=== PATIENT | female | born 1940 | race Caucasian/White ===

== ENCOUNTER → 2016-07-04 | Outpatient (REF) | payer MEDICARE, OTHER ==
[~2016-07-04] MED LIST: AMLO25TA PO; ASPI81TA85 PO; AZEL0.1S3; BACT400T; CALC12502 PO; CALCTAB PO; CIPR500T4; COUM2.5T11 PO; CRES40TA; CRES40TA PO; CYCL10TA PO; DARV100T; DEPA500T2 PO; DRIS50002 PO; ENABLEX; ENAL10TA2; ESCI10TA2 PO; FLON1SPR; FOSA5TAB; IBAN150T5 PO; INDE1CAP5 PO; LEVO-84 PO; LEVO75TA4 PO; LEXA5TAB13 PO; LOSA100T37 PO; NEUR400C; PERC5TAB6 PO; PRIL20CA; PRIN20TA3; PROP60TA; SULFA; VITATAB11 PO; WARF-23 PO; ZOFR20TA PO
[2016-07-04 14:11] LABS: INR 1.13
== END ==
LOC: M LAB REF 13:10
PROVIDERS: ATTEND Nurse Practitioner Family
DX: Z51.81 Encounter for therapeutic drug level monitoring (principal); Z79.01 Long term (current) use of anticoagulants; Z47.1 Aftercare following joint replacement surgery

== ENCOUNTER → 2016-07-18 | Outpatient (REF) | payer MEDICARE, OTHER ==
[2016-07-18 14:44] LABS: INR 1.17
== END ==
LOC: M LAB REF 14:13
PROVIDERS: ATTEND Nurse Practitioner Family
DX: Z47.1 Aftercare following joint replacement surgery (principal); Z79.01 Long term (current) use of anticoagulants

== ENCOUNTER → 2016-09-28 | Outpatient (REF) | payer MEDICARE, OTHER ==
[2016-09-28 12:07] LABS: ALBUMIN 3.6 GM/DL (3.2-5.2); ALBUMIN/GLOBULIN RATIO 1.16 (1.00-1.93); ALKALINE PHOSPHATASE 94 U/L (45-117); ALT/SGPT 20 U/L (12-78); ANION GAP 6 MEQ/L (8-16); AST/SGOT 24 U/L (15-37); BILIRUBIN,TOTAL 0.6 MG/DL (0.2-1.0); BLOOD UREA NITROGEN 12 MG/DL (7-18); CALCIUM LEVEL 8.7 MG/DL (8.8-10.2); CARBON DIOXIDE LEVEL 32 MEQ/L (21-32); CHLORIDE LEVEL 106 MEQ/L (98-107); CHOLESTEROL LEVEL 142 MG/DL (<200); CREATININE FOR GFR 0.72 MG/DL (0.55-1.02); FREE T4 1.06 NG/DL (0.76-1.46); GLOMERULAR FILTRATION RATE > 60.0 (>39); GLUCOSE, FASTING 88 MG/DL (83-110); POTASSIUM SERUM 3.9 MEQ/L (3.5-5.1); SODIUM LEVEL 144 MEQ/L (136-145); TOTAL PROTEIN 6.7 GM/DL (6.4-8.2); TRIGLYCERIDES LEVEL 182 MG/DL (<150)
[2016-09-28 12:41] LABS: MEAN CORPUSCULAR HEMOGLOBIN 28.7 pg (27.0-33.0); MEAN CORPUSCULAR HGB CONC 32.2 g/dl (32.0-36.5); MEAN CORPUSCULAR VOLUME 89.1 fl (80.0-96.0); RED CELL DISTRIBUTION WIDTH 15.5 % (11.5-14.5); WHITE BLOOD COUNT 4.9 K/mm3 (4.0-10.0)
== END ==
LOC: M SFHCPLAZ 07:52
PROVIDERS: ATTEND Nurse Practitioner Family
DX: J30.89 Other allergic rhinitis (principal); I10 Essential (primary) hypertension; E03.9 Hypothyroidism, unspecified; E78.2 Mixed hyperlipidemia; E55.9 Vitamin D deficiency, unspecified

== ENCOUNTER → 2016-12-01 | Outpatient (REF) | payer MEDICARE, OTHER | LOC: M SFHCPLAZ 10:14 | PROVIDERS: ATTEND Nurse Practitioner Family | DX: R30.0 Dysuria (principal) | CPT/HCPCS: 81002; 87086; G0463 ==

== ENCOUNTER → 2016-12-19 | Outpatient (REF) | payer MEDICARE, OTHER ==
[2016-12-19 13:18] LABS: BASO % 0.5 % (0.0-1.0); EOS # 0.2 K/mm3 (0.0-0.50); EOS % 3.3 % (0.0-3.0); LARGE UNSTAINED CELL # 0.1 K/mm3 (0.0-0.4); LARGE UNSTAINED CELL % 1.7 % (0.0-4.0); LYMPH # 1.1 K/mm3 (1.5-4.5); LYMPH % 21.7 % (24.0-44.0); MEAN CORPUSCULAR HEMOGLOBIN 29.4 pg (27.0-33.0); MEAN CORPUSCULAR HGB CONC 33.1 g/dl (32.0-36.5); MEAN CORPUSCULAR VOLUME 88.6 fl (80.0-96.0); MONO # 0.4 K/mm3 (0.0-0.8); MONO % 8.8 % (0.0-5.0); NEUTROPHILS # 3.1 K/mm3 (1.8-7.7); NEUTROPHILS % 64.1 % (36.0-66.0); PLATELET COUNT, AUTOMATED 265 k/mm3 (150-450); WHITE BLOOD COUNT 4.9 K/mm3 (4.0-10.0)
[2016-12-19 14:04] LABS: ERYTHROCYTE SEDIMENTATION RATE 13 mm/hr (0-30)
== END ==
LOC: M LABDRAW1 11:38
PROVIDERS: ATTEND Orthopaedic Surgery
DX: M25.552 Pain in left hip (principal)

== ENCOUNTER → 2017-03-13 | Outpatient (REF) | payer MEDICARE, OTHER ==
[~2017-03-13] MED LIST changes: -COUM2.5T11 PO; +COUM2.5T17 PO; -LOSA100T37 PO; +LOSA100T5 PO; +PERC5TAB12 PO; -PERC5TAB6 PO
[2017-03-13 11:56] LABS: ALBUMIN 3.4 GM/DL (3.2-5.2); ALBUMIN/GLOBULIN RATIO 0.97 (1.00-1.93); ALKALINE PHOSPHATASE 89 U/L (45-117); ALT/SGPT 31 U/L (12-78); ANION GAP 7 MEQ/L (8-16); AST/SGOT 23 U/L (15-37); BILIRUBIN,TOTAL 0.5 MG/DL (0.2-1.0); BLOOD UREA NITROGEN 12 MG/DL (7-18); CALCIUM LEVEL 9.4 MG/DL (8.8-10.2); CARBON DIOXIDE LEVEL 32 MEQ/L (21-32); CHLORIDE LEVEL 106 MEQ/L (98-107); GLOMERULAR FILTRATION RATE > 60.0 (>39); GLUCOSE, FASTING 92 MG/DL (83-110); POTASSIUM SERUM 3.8 MEQ/L (3.5-5.1); SODIUM LEVEL 145 MEQ/L (136-145); TOTAL PROTEIN 6.9 GM/DL (6.4-8.2)
== END ==
LOC: M SFHCPLAZ 07:49
PROVIDERS: ATTEND Nurse Practitioner Family
DX: E55.9 Vitamin D deficiency, unspecified (principal); I10 Essential (primary) hypertension

== ENCOUNTER → 2017-07-28 | Outpatient (CLI) | payer MEDICARE, OTHER | LOC: M WUC 09:31 | DX: K44.9 Diaphragmatic hernia without obstruction or gangrene (principal); M41.9 Scoliosis, unspecified; J20.9 Acute bronchitis, unspecified; R06.02 Shortness of breath | CPT/HCPCS: 71046 ==

== ENCOUNTER 2017-09-02 10:34 | Emergency (ER) | payer MEDICARE, BC, OTHER | END 2017-09-02 13:46 | disposition home or self-care (01) | LOC: M ED 10:34 | DX: S82.831A Other fracture of upper and lower end of right fibula, initial encounter for closed fracture (principal); W10.9XXA Fall (on) (from) unspecified stairs and steps, initial encounter; Y92.9 Unspecified place or not applicable; Y93.9 Activity, unspecified; Z86.14 Personal history of Methicillin resistant Staphylococcus aureus infection; G43.909 Migraine, unspecified, not intractable, without status migrainosus; E78.00 Pure hypercholesterolemia, unspecified; I10 Essential (primary) hypertension; G47.30 Sleep apnea, unspecified; K21.9 Gastro-esophageal reflux disease without esophagitis; K57.30 Diverticulosis of large intestine without perforation or abscess without bleeding; K31.84 Gastroparesis; Z87.440 Personal history of urinary (tract) infections; N93.9 Abnormal uterine and vaginal bleeding, unspecified; M81.0 Age-related osteoporosis without current pathological fracture; M54.9 Dorsalgia, unspecified; E03.9 Hypothyroidism, unspecified; E55.9 Vitamin D deficiency, unspecified; F41.9 Anxiety disorder, unspecified; J30.2 Other seasonal allergic rhinitis; Z79.899 Other long term (current) drug therapy; Z88.2 Allergy status to sulfonamides; Z88.8 Allergy status to other drugs, medicaments and biological substances | CPT/HCPCS: 73610 ==

== ENCOUNTER → 2017-09-26 | Outpatient (REF) | payer MEDICARE, OTHER ==
[2017-09-26 12:33] LABS: TOTAL 25(OH) VITAMIN D 19.3 NG/ML (30.0-100.0)
[2017-09-26 12:35] LABS: ALBUMIN 3.3 GM/DL (3.2-5.2); ALBUMIN/GLOBULIN RATIO 0.85 (1.00-1.93); ALKALINE PHOSPHATASE 97 U/L (45-117); ALT/SGPT 21 U/L (12-78); ANION GAP 4 MEQ/L (8-16); AST/SGOT 21 U/L (7-37); BILIRUBIN,TOTAL 0.6 MG/DL (0.2-1.0); BLOOD UREA NITROGEN 7 MG/DL (7-18); CALCIUM LEVEL 8.6 MG/DL (8.8-10.2); CARBON DIOXIDE LEVEL 30 MEQ/L (21-32); CHLORIDE LEVEL 109 MEQ/L (98-107); CHOLESTEROL LEVEL 176 MG/DL (<200); CHOLESTEROL RISK RATIO 3.911 (<5); CREATININE FOR GFR 0.77 MG/DL (0.55-1.30); FREE T4 1.16 NG/DL (0.76-1.46); GLOMERULAR FILTRATION RATE > 60.0 (>39); GLUCOSE, FASTING 96 MG/DL (70-100); HDL CHOLESTEROL 45 MG/DL (>40); LDL CHOLESTEROL 95.6 MG/DL (<100); NON-HDL-C 131 MG/DL; SODIUM LEVEL 143 MEQ/L (136-145); TOTAL PROTEIN 7.2 GM/DL (6.4-8.2); TRIGLYCERIDES LEVEL 177 MG/DL (<150)
== END ==
LOC: M SFHCPLAZ 08:48
DX: I10 Essential (primary) hypertension (principal); E03.9 Hypothyroidism, unspecified; E78.2 Mixed hyperlipidemia; E55.9 Vitamin D deficiency, unspecified
CPT/HCPCS: 84443

== ENCOUNTER → 2017-10-16 | Outpatient (REF) | payer MEDICARE, OTHER ==
[2017-10-16 13:17] LABS: APPEARANCE, URINE CLOUDY (CLEAR); BACTERIA, URINE AUTO NEGATIVE (NEGATIVE); BILIRUBIN, URINE AUTO NEGATIVE (NEGATIVE); BLOOD, URINE BLOOD NEGATIVE (NEGATIVE); CALCIUM OXALATE CRYSTALS MODERATE; COLOR, URINE AMBER (YELLOW); GLUCOSE, URINE (UA) AUTO NEGATIVE (NEGATIVE); KETONE, URINE AUTO TRACE mg/dL (NEGATIVE); LEUKOCYTE ESTERASE, URINE AUTO 3+ (NEGATIVE); MUCUS, URINE SMALL (NEGATIVE); NITRITE, URINE AUTO NEGATIVE (NEGATIVE); PROTEIN, URINE AUTO 1+ mg/dL (NEGATIVE); RBC, URINE AUTO 24 /HPF (0-3); SPECIFIC GRAVITY URINE AUTO 1.018 (1.002-1.035); SQUAMOUS EPITHELIAL CELL UR AU 5 /HPF (0-6); UROBILINOGEN, URINE AUTO 0.2 mg/dL (0.0-2.0); WBC, URINE AUTO TNTC /HPF (0-3)
== END ==
LOC: M SMT 13:00
DX: R35.0 Frequency of micturition (principal)
CPT/HCPCS: 81001

== ENCOUNTER → 2017-10-30 | Outpatient (REF) | payer MEDICARE, OTHER | LOC: M SMT 17:08 | DX: N39.0 Urinary tract infection, site not specified (principal) | CPT/HCPCS: 87186 ==

== ENCOUNTER → 2017-11-19 | Outpatient (REF) | payer MEDICARE, OTHER ==
[2017-11-19 14:32] LABS: APPEARANCE, URINE CLEAR (CLEAR); BACTERIA, URINE AUTO NEGATIVE (NEGATIVE); BILIRUBIN, URINE AUTO NEGATIVE (NEGATIVE); BLOOD, URINE BLOOD NEGATIVE (NEGATIVE); COLOR, URINE YELLOW (YELLOW); GLUCOSE, URINE (UA) AUTO NEGATIVE (NEGATIVE); KETONE, URINE AUTO NEGATIVE (NEGATIVE); LEUKOCYTE ESTERASE, URINE AUTO 2+ (NEGATIVE); MUCUS, URINE SMALL (NEGATIVE); NITRITE, URINE AUTO NEGATIVE (NEGATIVE); PROTEIN, URINE AUTO NEGATIVE (NEGATIVE); RBC, URINE AUTO 2 /HPF (0-3); SPECIFIC GRAVITY URINE AUTO 1.013 (1.002-1.035); SQUAMOUS EPITHELIAL CELL UR AU 2 /HPF (0-6); UROBILINOGEN, URINE AUTO 0.2 mg/dL (0.0-2.0); WBC, URINE AUTO 2 /HPF (0-3)
== END ==
LOC: M SMT 13:48
DX: N39.0 Urinary tract infection, site not specified (principal)
CPT/HCPCS: 81001

== ENCOUNTER → 2018-04-12 | Outpatient (REF) | payer MEDICARE, OTHER ==
[2018-04-12 11:53] LABS: BASO % 0.6 % (0.0-1.0); EOS # 0.1 10^3/uL (0.0-0.50); EOS % 0.9 % (0.0-3.0); HEMATOCRIT 40.3 % (36.0-47.0); IMMATURE GRANULOCYTE % 0.4 % (0-3.0); LYMPH # 1.2 10^3/uL (1.5-4.5); LYMPH % 22.6 % (24.0-44.0); MEAN CORPUSCULAR HEMOGLOBIN 23.8 pg (27.0-33.0); MEAN CORPUSCULAR HGB CONC 29.8 g/dl (32.0-36.5); MONO # 0.8 10^3/uL (0.0-0.8); MONO % 15.2 % (0.0-5.0); NEUTROPHILS # 3.3 10^3/uL (1.8-7.7); NEUTROPHILS % 60.3 % (36.0-66.0); PLATELET COUNT, AUTOMATED 314 10^3/uL (150-450); RED BLOOD COUNT 5.04 10^6/uL (4.00-5.40); WHITE BLOOD COUNT 5.5 10^3/uL (4.0-10.0)
[2018-04-12 13:36] LABS: ALBUMIN 3.9 GM/DL (3.2-5.2); ALBUMIN/GLOBULIN RATIO 1.18 (1.00-1.93); ALKALINE PHOSPHATASE 106 U/L (45-117); ALT/SGPT 23 U/L (12-78); ANION GAP 7 MEQ/L (8-16); AST/SGOT 20 U/L (7-37); BILIRUBIN,TOTAL 0.4 MG/DL (0.2-1.0); BLOOD UREA NITROGEN 9 MG/DL (7-18); CALCIUM LEVEL 8.9 MG/DL (8.8-10.2); CARBON DIOXIDE LEVEL 31 MEQ/L (21-32); CHLORIDE LEVEL 107 MEQ/L (98-107); CREATININE FOR GFR 0.93 MG/DL (0.55-1.30); FERRITIN 9 NG/ML (8-252); FREE T4 1.01 NG/DL (0.76-1.46); GLOMERULAR FILTRATION RATE > 60.0 (>39); GLUCOSE, FASTING 86 MG/DL (70-100); POTASSIUM SERUM 4.8 MEQ/L (3.5-5.1); SODIUM LEVEL 145 MEQ/L (136-145); TOTAL PROTEIN 7.2 GM/DL (6.4-8.2)
[2018-04-12 13:49] LABS: FOLATE 5.3 NG/ML
== END ==
LOC: M SFHCPLAZ 08:53
DX: R53.83 Other fatigue (principal); E03.9 Hypothyroidism, unspecified; E55.9 Vitamin D deficiency, unspecified
CPT/HCPCS: 82746

== ENCOUNTER → 2018-04-17 | Outpatient (CLI) | payer MEDICARE, BC | LOC: M WHC 11:18 | DX: Z12.31 Encounter for screening mammogram for malignant neoplasm of breast (principal); Z78.0 Asymptomatic menopausal state; Z92.89 Personal history of other medical treatment | CPT/HCPCS: 77067 ==

== ENCOUNTER → 2018-06-21 | Outpatient (CLI) | payer MEDICARE, BC ==
[~2018-06-21] MED LIST changes: -DRIS50002 PO; +DRIS50003 PO; +GABA-845 PO; -IBAN150T5 PO; +IBAN150T6 PO; -INDE1CAP5 PO; +INDE60CA4 PO; +METH-855 PO; +OXYB10TA PO; +PROAAER10; +PROP60CA PO; +TYLE325T5 PO; -ZOFR20TA PO; +ZOFR4TAB16 PO
--- NOTE | 2018-06-27 13:24 | DEXA ---
AP SPINE L1 - L4 1.087 -0.9 0.9 LT FEMUR TOTAL Left hip replacement. LT NECK RT FEMUR TOTAL 0.729 -2.2 -0.4 RT NECK 0.662 -2.7 -0.7 TOTAL BODY TOTAL OTHER COMMENTS: Normal bone densitometry of the spine. There is osteoporosis of the right hip. Lumbar scoliosis. The density of the spine has increased 9.5% since the initial exam on 08/14/2001. The spine density has decreased 1.1% since the most recent exam on 10/14/2015. The density of the right hip has decreased 2.9% since the initial exam on 08/14/2001. The density of the right hip has decreased 6.2% since the most recent exam on 10/14/2015. FOLLOW-UP: Recommendation for the next bone density exam: 2 years. ANUEL
== END ==
LOC: M WHC 11:18
PROVIDERS: ATTEND Internal Medicine Endocrinology, Diabetes & Metabolism
DX: M81.0 Age-related osteoporosis without current pathological fracture (principal)

== ENCOUNTER 2018-07-04 08:21 | Day surgery (SDC) | payer MEDICARE, BC, OTHER ==
[~2018-07-04] VITALS: Ht 154.9 cm; Wt 65.3 kg
[~2018-07-04 08:21] MED LIST changes: +BALANCED SALT IRRIGATION SOLUTION 500ML BAG (FOR OR EYE MACHINE) As Ordered ONE; +CEFUROXIME 1MG/0.1ML INTRACAMERAL INJ As Ordered ONE; +DUOVISC (0.50ML VISCOAT/0.55ML PROVISC) OPHTH KIT As Ordered ONE; +LIDOCAINE 0.75%/EPINEPHRINE 0.025% IN BSS 1ML SYR INTRACAMERAL (OR ONLY) As Ordered ONE; +OFLOXACIN 0.3 % (OCUFLOX) OPTH SOL 5ML OD ONE; +PHENYLEPHRINE 2.5% OPHTH SOL 2ML OD ONE; +POVIDONE-IODINE 5% OPHTH PREP SOL 30ML As Ordered ONE; +PROPARACAINE 0.5% OPHTH SOL 15ML OD ONE; +TROPICAMIDE 1% OPHTH SOLN 2ML OD ONE
[2018-07-04] MEDS ORDERED: MIDAZOLAM INJ 2 MG/2 ML VIAL (J2250) As Ordered ONE (08:24)
[2018-07-04] MEDS ORDERED: fentaNYL 100 MCG/2 ML INJECTION (J3010) As Ordered ONE (08:24)
[2018-07-04 11:20] VITALS: BP 155/84
--- NOTE | 2018-07-04 16:06 | RO ---
DATE OF PROCEDURE: 07/04/2018 PREOPERATIVE DIAGNOSIS: 1. Visually significant nuclear sclerotic cataract right eye. POSTOPERATIVE DIAGNOSIS: 1. Visually significant nuclear sclerotic cataract right eye. PROCEDURE: 1. Cataract extraction with use of phacoemulsification and placement of intraocular lens AU00T0, 28.5 D, right eye. SURGEON: Isaac Viveros DO MANAGER LEAN: None. ANESTHESIA: Local with monitored anesthesia care (MAC). COMPLICATIONS: None. POSTOPERATIVE CONDITION: Stable. INDICATIONS FOR SURGERY: 1. Blurred vision affecting patients activities of daily living. DESCRIPTION OF PROCEDURE: The patient was seen in the preoperative area and properly identified. The correct operative eye was identified and marked. The patient received topical anesthetic, antibiotics, and topical dilating drops. The patient was then transferred to the operating room. The correct side was re-identified, and a time-out was performed. The eye was prepped and draped in a sterile fashion. The eyelids were isolated with Tegaderm tape, and the lids were held open with an adjustable speculum. A 1.0 mm paracentesis incision was made. Intraocular preservative-free Shugarcaine was then injected into the anterior chamber. Viscoelastic was then injected into the anterior chamber through the paracentesis. Using a 2.4 mm sharp-tipped keratome, the anterior chamber was entered via a temporal clear cornea incision. A continuous curvilinear capsulorrhexis was created with Utrata forceps. Hydrodissection was performed with balanced salt solution (BSS) on a blunt cannula until the nucleus was able to rotate freely. The crystalline lens was phacoemulsified and aspirated. Irrigation/aspiration was used to remove the cortical material. Cohesive viscoelastic was placed into the capsular bag to deepen it. The implant was placed into the capsular bag and allowed to unfold. Placement was confirmed by visualizing the anterior capsulorrhexis. Irrigation/aspiration was used to remove the viscoelastic. The clear corneal incision was hydrated with BSS on a blunt cannula. The lens was well positioned. The incisions were then tested for leaks and found to be negative. The eye was then palpated for appropriate pressure and adjusted accordingly with BSS. The eyelid speculum was then carefully removed. A shield was placed over the eye. The patient tolerated the procedure well and was discharged to the recovery unit in a stable condition. Edited: 07/04/2018 1612 whit
== END 2018-07-04 11:20 | disposition home or self-care (01) ==
LOC: M SDC 08:21
PROVIDERS: ATTEND Ophthalmology
DX: H25.11 Age-related nuclear cataract, right eye (principal); I10 Essential (primary) hypertension; M12.9 Arthropathy, unspecified; D64.9 Anemia, unspecified; E03.9 Hypothyroidism, unspecified; E78.00 Pure hypercholesterolemia, unspecified; K31.84 Gastroparesis; D50.9 Iron deficiency anemia, unspecified; M85.80 Other specified disorders of bone density and structure, unspecified site; G43.909 Migraine, unspecified, not intractable, without status migrainosus; G62.9 Polyneuropathy, unspecified; J45.909 Unspecified asthma, uncomplicated; G47.33 Obstructive sleep apnea (adult) (pediatric); J30.89 Other allergic rhinitis; Z88.2 Allergy status to sulfonamides; Z88.8 Allergy status to other drugs, medicaments and biological substances; Z79.899 Other long term (current) drug therapy; Z79.82 Long term (current) use of aspirin; Z90.710 Acquired absence of both cervix and uterus; Z87.440 Personal history of urinary (tract) infections; Z96.642 Presence of left artificial hip joint
CPT/HCPCS: 66984; J2250; J3010; V2632

== ENCOUNTER 2018-07-11 07:42 | Day surgery (SDC) | payer MEDICARE, BC, OTHER ==
[~2018-07-11] VITALS: Ht 154.9 cm; Wt 66.0 kg
[~2018-07-11 07:42] MED LIST changes: +MIDAZOLAM INJ 2 MG/2 ML VIAL (J2250) As Ordered ONE; -OFLOXACIN 0.3 % (OCUFLOX) OPTH SOL 5ML OD ONE; +OFLOXACIN 0.3 % (OCUFLOX) OPTH SOL 5ML OS ONE; -PHENYLEPHRINE 2.5% OPHTH SOL 2ML OD ONE; +PHENYLEPHRINE 2.5% OPHTH SOL 2ML OS ONE; -PROPARACAINE 0.5% OPHTH SOL 15ML OD ONE; +PROPARACAINE 0.5% OPHTH SOL 15ML OS ONE; -TROPICAMIDE 1% OPHTH SOLN 2ML OD ONE; +TROPICAMIDE 1% OPHTH SOLN 2ML OS ONE; +fentaNYL 100 MCG/2 ML INJECTION (J3010) As Ordered ONE
[2018-07-11 10:05] VITALS: BP 160/80
[2018-07-11] MEDS ORDERED: ACETAMINOPHEN TAB 650MG DOSE (2X325MG) PO PRN (10:15)
[2018-07-11] MEDS ORDERED: ONDANSETRON 4MG/2ML VIAL (J2405) IV PRN (10:15)
--- NOTE | 2018-07-11 13:55 | RO ---
DATE OF PROCEDURE: 07/11/2018 PREOPERATIVE DIAGNOSIS: 1. Visually significant nuclear sclerotic cataract left eye. POSTOPERATIVE DIAGNOSIS: 1. Visually significant nuclear sclerotic cataract left eye. PROCEDURE: 1. Cataract extraction with use of phacoemulsification and placement of intraocular lens, AU00T0, 28.0 D, left eye. SURGEON: Isaac Viveros DO JOB TRAINING SUPERVISOR: None. ANESTHESIA: Local with monitored anesthesia care (MAC). COMPLICATIONS: None. POSTOPERATIVE CONDITION: Stable. INDICATIONS FOR SURGERY: 1. Blurred vision affecting patients activities of daily living. DESCRIPTION OF PROCEDURE: The patient was seen in the preoperative area and properly identified. The correct operative eye was identified and marked. The patient received topical anesthetic, antibiotics, and topical dilating drops. The patient was then transferred to the operating room. The correct side was re-identified, and a time-out was performed. The eye was prepped and draped in a sterile fashion. The eyelids were isolated with Tegaderm tape, and the lids were held open with an adjustable speculum. A 1.0 mm paracentesis incision was made. Intraocular preservative-free Shugarcaine was then injected into the anterior chamber. Viscoelastic was then injected into the anterior chamber through the paracentesis. Using a 2.4 mm sharp-tipped keratome, the anterior chamber was entered via a temporal clear cornea incision. A continuous curvilinear capsulorrhexis was created with Utrata forceps. Hydrodissection was performed with balanced salt solution (BSS) on a blunt cannula until the nucleus was able to rotate freely. The crystalline lens was phacoemulsified and aspirated. Irrigation/aspiration was used to remove the cortical material. Cohesive viscoelastic was placed into the capsular bag to deepen it. The implant was placed into the capsular bag and allowed to unfold. Placement was confirmed by visualizing the anterior capsulorrhexis. Irrigation/aspiration was used to remove the viscoelastic. The clear corneal incision was hydrated with BSS on a blunt cannula. The lens was well positioned. The incisions were then tested for leaks and found to be negative. The eye was then palpated for appropriate pressure and adjusted accordingly with BSS. The eyelid speculum was then carefully removed. A shield was placed over the eye. The patient tolerated the procedure well and was discharged to the recovery unit in a stable condition. ANUEL
== END 2018-07-11 10:24 | disposition home or self-care (01) ==
LOC: M SDC 07:42 → EEVIPCON 07:42 → M SDC 10:24
PROVIDERS: ATTEND Ophthalmology
DX: H25.12 Age-related nuclear cataract, left eye (principal); I10 Essential (primary) hypertension; E78.5 Hyperlipidemia, unspecified; E03.9 Hypothyroidism, unspecified; D64.9 Anemia, unspecified; G47.30 Sleep apnea, unspecified; F41.9 Anxiety disorder, unspecified; Z88.2 Allergy status to sulfonamides; Z79.899 Other long term (current) drug therapy
CPT/HCPCS: 66984; J2250; J3010; V2632

== ENCOUNTER 2018-08-12 15:41 | Outpatient (CLI) | payer MEDICARE, BC, OTHER ==
[~2018-08-12] VITALS: Ht 154.9 cm; Wt 65.3 kg
[2018-08-12 15:50] VITALS: BP 173/79
[2018-08-12] MEDS ORDERED: ZOLEDRONIC ACID 5 MG in APPROPRIATE DILUENT 1 EA IV ONE (16:15)
[2018-08-12 17:25] VITALS: BP 161/78
== END 2018-08-12 17:20 | disposition home or self-care (01) ==
LOC: M INFU 15:41
PROVIDERS: ATTEND Internal Medicine Endocrinology, Diabetes & Metabolism
DX: M81.0 Age-related osteoporosis without current pathological fracture (principal); E55.9 Vitamin D deficiency, unspecified; Z88.2 Allergy status to sulfonamides; J30.2 Other seasonal allergic rhinitis
CPT/HCPCS: 36415; 80048; 81383; 96365; J3489

== ENCOUNTER → 2018-08-12 | Outpatient (REF) | payer MEDICARE, OTHER ==
[~2018-08-12] MED LIST changes: -BALANCED SALT IRRIGATION SOLUTION 500ML BAG (FOR OR EYE MACHINE) As Ordered ONE; -CEFUROXIME 1MG/0.1ML INTRACAMERAL INJ As Ordered ONE; -DUOVISC (0.50ML VISCOAT/0.55ML PROVISC) OPHTH KIT As Ordered ONE; -LIDOCAINE 0.75%/EPINEPHRINE 0.025% IN BSS 1ML SYR INTRACAMERAL (OR ONLY) As Ordered ONE; -MIDAZOLAM INJ 2 MG/2 ML VIAL (J2250) As Ordered ONE; -OFLOXACIN 0.3 % (OCUFLOX) OPTH SOL 5ML OS ONE; -PHENYLEPHRINE 2.5% OPHTH SOL 2ML OS ONE; -POVIDONE-IODINE 5% OPHTH PREP SOL 30ML As Ordered ONE; -PROPARACAINE 0.5% OPHTH SOL 15ML OS ONE; -TROPICAMIDE 1% OPHTH SOLN 2ML OS ONE; -fentaNYL 100 MCG/2 ML INJECTION (J3010) As Ordered ONE
[2018-08-12 18:46] LABS: BLOOD UREA NITROGEN 11 MG/DL (7-18); CALCIUM LEVEL 8.4 MG/DL (8.8-10.2); CARBON DIOXIDE LEVEL 30 MEQ/L (21-32); CHLORIDE LEVEL 106 MEQ/L (98-107); CREATININE FOR GFR 0.87 MG/DL (0.55-1.30); GLOMERULAR FILTRATION RATE > 60.0 (>39); GLUCOSE, FASTING 101 MG/DL (70-100); POTASSIUM SERUM 3.6 MEQ/L (3.5-5.1); SODIUM LEVEL 143 MEQ/L (136-145)
== END ==
LOC: M LABDRAW1 11:25
PROVIDERS: ATTEND Internal Medicine Endocrinology, Diabetes & Metabolism
DX: M81.0 Age-related osteoporosis without current pathological fracture (principal); E55.9 Vitamin D deficiency, unspecified

== ENCOUNTER → 2018-09-04 | Outpatient (REF) | payer MEDICARE, OTHER ==
[2018-09-04 12:54] LABS: ALBUMIN 3.5 GM/DL (3.2-5.2); ALT/SGPT 19 U/L (12-78); BILIRUBIN,TOTAL 0.5 MG/DL (0.2-1.0); BLOOD UREA NITROGEN 9 MG/DL (7-18); CALCIUM LEVEL 8.3 MG/DL (8.8-10.2); CARBON DIOXIDE LEVEL 30 MEQ/L (21-32); CHLORIDE LEVEL 108 MEQ/L (98-107); CHOLESTEROL LEVEL 182 MG/DL (<200); CHOLESTEROL RISK RATIO 3.309 (<5); CREATININE FOR GFR 0.81 MG/DL (0.55-1.30); GLOMERULAR FILTRATION RATE > 60.0 (>39); GLUCOSE, FASTING 99 MG/DL (70-100); HDL CHOLESTEROL 55 MG/DL (>40); LDL CHOLESTEROL 102 MG/DL (<100); NON-HDL-C 127 MG/DL; POTASSIUM SERUM 4.5 MEQ/L (3.5-5.1); SODIUM LEVEL 144 MEQ/L (136-145); TOTAL PROTEIN 6.9 GM/DL (6.4-8.2); TRIGLYCERIDES LEVEL 127 MG/DL (<150)
== END ==
LOC: M SFHCPLAZ 09:53
PROVIDERS: ATTEND Nurse Practitioner Family
DX: I10 Essential (primary) hypertension (principal); E03.9 Hypothyroidism, unspecified; E78.2 Mixed hyperlipidemia

== ENCOUNTER 2018-11-22 13:51 | Emergency (ER) | payer MEDICARE, BC, OTHER ==
[~2018-11-22] VITALS: Ht 154.9 cm; Wt 66.8 kg
[2018-11-22] MEDS ORDERED: NORCO, ANEXSIA 5/325MG TABLET (HYDROcodone/ACETAMINOPHEN) PO ONE (14:45)
--- NOTE | 2018-11-22 15:05 | REP ---
LEFT HIP, AP PELVIS, THREE VIEWS: HISTORY: Pain. The patient is status post left total hip replacement. There is no acute fracture or dislocation. There is minimal narrowing of the right hip joint space with associated sclerosis. IMPRESSION: The patient is status post left total hip replacement. Electronically Signed by Tyler Jaimes MD 11/22/2018 03:22 P
[2018-11-22] MEDS ORDERED: KEFL500C17 PO (15:27)
[2018-11-22] MEDS ORDERED: NORC1TAB7 PO (15:27)
[2018-11-22] MEDS ORDERED: PRED10TA2 PO (15:27)
[2018-11-22] MEDS ORDERED: cefTRIAXone SOD 1 GM VIAL (J0696) IM ONE (15:30)
[2018-11-22] MEDS ORDERED: LIDOCAINE 1% SDV 5 ML VIAL DILUENT ONE (15:30)
[2018-11-22 16:15] VITALS: BP 110/65
== END 2018-11-22 16:17 | disposition home or self-care (01) ==
LOC: M ED 13:51
DX: M54.32 Sciatica, left side (principal); N10 Acute pyelonephritis; Z79.51 Long term (current) use of inhaled steroids; Z79.891 Long term (current) use of opiate analgesic; Z79.899 Other long term (current) drug therapy; Z96.642 Presence of left artificial hip joint
CPT/HCPCS: 73502; 80047; 81001; 87088; 87186; 96372; 99283; J0696

== ENCOUNTER 2018-12-11 10:55 | Emergency (ER) | payer MEDICARE, BC, OTHER ==
[~2018-12-11] VITALS: Ht 154.9 cm; Wt 64.6 kg
[~2018-12-11 10:55] MED LIST changes: +KEFL500C17 PO; +NORC1TAB7 PO; +PRED10TA2 PO
[2018-12-11] MEDS ORDERED: MORPHINE 2 MG/ML 1ML SYRINGE (J2270) IV ONE (11:30)
[2018-12-11] MEDS ORDERED: METOCLOPRAMIDE INJ 10MG/2ML VIAL (J2765) IV ONE (11:30)
[2018-12-11] MEDS ORDERED: NS 1,000 ML IV ONE (11:30)
[2018-12-11 11:31] LABS: BASO % 0.4 % (0.0-1.0); EOS # 0.1 10^3/uL (0.0-0.50); EOS % 1.8 % (0.0-3.0); HEMATOCRIT 42.2 % (36.0-47.0); HEMOGLOBIN 13.2 g/dl (12.0-15.5); LYMPH % 19.7 % (24.0-44.0); MEAN CORPUSCULAR HEMOGLOBIN 27.7 pg (27.0-33.0); MEAN CORPUSCULAR HGB CONC 31.3 g/dl (32.0-36.5); MEAN CORPUSCULAR VOLUME 88.7 fl (80.0-96.0); MONO # 0.7 10^3/uL (0.0-0.8); MONO % 14.6 % (0.0-5.0); NEUTROPHILS # 3.2 10^3/uL (1.8-7.7); NEUTROPHILS % 63.1 % (36.0-66.0); PLATELET COUNT, AUTOMATED 361 10^3/uL (150-450); RED BLOOD COUNT 4.76 10^6/uL (4.00-5.40); WHITE BLOOD COUNT 5.1 10^3/uL (4.0-10.0)
[2018-12-11 11:57] LABS: ALBUMIN 3.1 GM/DL (3.2-5.2); ALT/SGPT 16 U/L (12-78); BILIRUBIN,DIRECT 0.1 MG/DL (0.0-0.2); BILIRUBIN,TOTAL 0.5 MG/DL (0.2-1.0); BLOOD UREA NITROGEN 5 MG/DL (7-18); CALCIUM LEVEL 8.8 MG/DL (8.8-10.2); CARBON DIOXIDE LEVEL 29 MEQ/L (21-32); CHLORIDE LEVEL 105 MEQ/L (98-107); CREATININE FOR GFR 0.86 MG/DL (0.55-1.30); GLOMERULAR FILTRATION RATE > 60.0 (>39); GLUCOSE, FASTING 93 MG/DL (70-100); LIPASE 111 U/L (73-393); POTASSIUM SERUM 3.7 MEQ/L (3.5-5.1); SODIUM LEVEL 141 MEQ/L (136-145); TOTAL PROTEIN 7.2 GM/DL (6.4-8.2)
[2018-12-11] MEDS ORDERED: ISOVUE-370 76% 100ML VIAL (Q9967) As Ordered ONE (12:17)
[2018-12-11] MEDS ORDERED: REGL5TAB2 PO (13:07)
[2018-12-11] MEDS ORDERED: CIPR-249 PO (13:07)
[2018-12-11] MEDS ORDERED: FLAG500T PO (13:07)
--- NOTE | 2018-12-11 13:13 | REP ---
CT ABDOMEN AND PELVIS WITH IV CONTRAST: TECHNIQUE: Axial contrast enhanced images from the lung bases to the pubic symphysis using 100 mL Isovue 370 intravenous contrast material with multiplanar reformations. Visualized lung bases demonstrate scattered fibrotic change. There is a large hiatal hernia. Liver demonstrates no mass. The patient has had a prior cholecystectomy. There does not appear to be significant biliary dilatation. The spleen, adrenals, pancreas, and kidneys are unremarkable. There is no hydronephrosis. There is no abdominal aortic aneurysm. There is atherosclerotic calcification of the abdominal aorta. I see no significant adenopathy. There is no free air or free fluid. There are scattered diverticula of the colon. Multiple sigmoid diverticula are present. There is segmental thickening of the sigmoid colon with surrounding streaky inflammatory change in the pericolonic fat consistent with diverticulitis. No pelvic mass is seen. The patient has had a hysterectomy. The urinary bladder is grossly unremarkable. A metallic left hip prosthesis causes adjacent streak artifact somewhat limiting evaluation of the pelvic structures. IMPRESSION: Sigmoid diverticulitis. No free air or free fluid and no evidence of abscess at this time. Large hiatal hernia. Electronically Signed by Stephen Moreno MD 12/12/2018 04:13 P
[2018-12-11 13:24] VITALS: BP 163/75
== END 2018-12-11 13:26 | disposition home or self-care (01) ==
LOC: M ED 10:55
DX: K57.32 Diverticulitis of large intestine without perforation or abscess without bleeding (principal); K44.9 Diaphragmatic hernia without obstruction or gangrene; I10 Essential (primary) hypertension; E78.5 Hyperlipidemia, unspecified; G43.909 Migraine, unspecified, not intractable, without status migrainosus; K21.9 Gastro-esophageal reflux disease without esophagitis; K31.84 Gastroparesis; M81.0 Age-related osteoporosis without current pathological fracture; Z79.899 Other long term (current) drug therapy; J30.2 Other seasonal allergic rhinitis; Z88.2 Allergy status to sulfonamides; Z88.8 Allergy status to other drugs, medicaments and biological substances
CPT/HCPCS: 74177; 80048; 80076; 81001; 83605; 83690; 85025; 87040; 87086; 96374; 96375; 99283; G0463; J2270; J2765; Q9967

== ENCOUNTER → 2019-01-09 | Outpatient (REF) | payer MEDICARE, OTHER ==
[~2019-01-09] MED LIST changes: -CALC12502 PO; +CALC500T60 PO; +CIPR-249 PO; +FLAG500T PO; +REGL5TAB2 PO
[2019-01-09 10:58] LABS: BLOOD UREA NITROGEN 8 MG/DL (7-18); CALCIUM LEVEL 8.8 MG/DL (8.8-10.2); CARBON DIOXIDE LEVEL 32 MEQ/L (21-32); CHLORIDE LEVEL 108 MEQ/L (98-107); CREATININE FOR GFR 0.88 MG/DL (0.55-1.30); FREE T4 1.02 NG/DL (0.76-1.46); GLOMERULAR FILTRATION RATE > 60.0 (>39); GLUCOSE, FASTING 91 MG/DL (70-100); POTASSIUM SERUM 3.8 MEQ/L (3.5-5.1); SODIUM LEVEL 144 MEQ/L (136-145)
== END ==
LOC: M SFHCPLAZ 08:02
PROVIDERS: ATTEND Nurse Practitioner Family
DX: E03.9 Hypothyroidism, unspecified (principal); I10 Essential (primary) hypertension; E55.9 Vitamin D deficiency, unspecified; Z79.52 Long term (current) use of systemic steroids; Z79.899 Other long term (current) drug therapy

== ENCOUNTER → 2019-04-28 | Outpatient (CLI) | payer MEDICARE, BC, OTHER ==
[~2019-04-28] MED LIST changes: +ACET-907 PO; +AZEL1SPR3 NARES; +B-10TAB2 PO; +CULTCAP2 PO; +DITR1TAB PO; +FLON27.5 NARES; +METH1TAB PO; -OXYB10TA PO; +OXYB10TA2 PO; -PROAAER10; +PROAAER10 INH; +RECL5INJ2 IV; +RELP40TA PO
[2019-04-28 10:34] LABS: FREE T4 1.01 NG/DL (0.76-1.46); THYROID STIMULATING HORMONE 2.84 uIU/ML (0.358-3.740)
== END ==
LOC: M LAB 09:16
PROVIDERS: ATTEND Internal Medicine Gastroenterology
DX: R19.7 Diarrhea, unspecified (principal)

== ENCOUNTER → 2019-04-29 | Outpatient (REF) | payer MEDICARE, OTHER ==
[2019-04-29 15:48] LABS: CLOSTRIDIUM DIFFICILE PCR NEGATIVE (NEGATIVE)
== END ==
LOC: M LAB REF 14:52
PROVIDERS: ATTEND Internal Medicine Gastroenterology
DX: R19.7 Diarrhea, unspecified (principal)

== ENCOUNTER 2019-05-02 09:47 | Day surgery (SDC) | payer MEDICARE, BC, OTHER ==
[~2019-05-02] VITALS: Ht 154.9 cm; Wt 65.7 kg
[~2019-05-02 09:47] MED LIST changes: -AZEL1SPR3 NARES; -B-10TAB2 PO; -CULTCAP2 PO; -DITR1TAB PO; -FLON27.5 NARES; -METH1TAB PO; +NS 1,000 ML IV ONE; -RECL5INJ2 IV; -RELP40TA PO
[2019-05-02] MEDS ORDERED: AZEL1SPR3 NARES (10:55)
[2019-05-02] MEDS ORDERED: FLON27.5 NARES (10:55)
[2019-05-02] MEDS ORDERED: ZOFR4TAB16 PO (10:55)
[2019-05-02] MEDS ORDERED: METH1TAB PO (10:55)
[2019-05-02] MEDS ORDERED: CULTCAP2 PO (10:55)
[2019-05-02] MEDS ORDERED: RELP40TA PO (10:55)
[2019-05-02] MEDS ORDERED: B-10TAB2 PO (10:55)
[2019-05-02] MEDS ORDERED: DRIS50003 PO (10:55)
[2019-05-02] MEDS ORDERED: RECL5INJ2 IV (10:55)
[2019-05-02] MEDS ORDERED: DITR1TAB PO (10:55)
[2019-05-02] MEDS ORDERED: PROPOFOL 500 MG/50 ML VIAL As Ordered ONE (10:59)
[2019-05-02] MEDS ORDERED: LIDOCAINE 2% INJ 100 MG/5 ML SDV (FOR ANES.) As Ordered ONE (11:01)
--- NOTE | 2019-05-02 11:33 | ROOR ---
Patient Name: Alla Hoyt Procedure Date: 05/02/2019 11:08 AM Date of : 1940 Age: 78 Room: [id number] Gender: Female Note Status: Finalized Procedure: Upper GI endoscopy Indications: Abdominal pain, Endoscopy to assess diarrhea in patient suspected of having disease of the small-bowel Providers: William RICHARDS MD Referring MD: Estee Montgomery NP Requesting Provider: Medicines: Monitored Anesthesia Care Complications: No immediate complications. Procedure: Pre-Anesthesia Assessment: - The heart rate, respiratory rate, oxygen saturations, blood pressure, adequacy of pulmonary ventilation, and response to care were monitored throughout the procedure. The Endoscope was introduced through the mouth, and advanced to the third part of duodenum. The upper GI endoscopy was accomplished without difficulty. The patient tolerated the procedure well. Findings: The examined esophagus was normal. A large hiatal hernia was present. The entire examined stomach was normal. The examined duodenum was normal. Biopsies for histology were taken with a cold forceps for evaluation of celiac disease. Impression: - Normal esophagus. - Large hiatal hernia. - otherwise normal stomach. - Normal examined duodenum. Biopsied. Recommendation: - Continue present medications. - Observe patient's clinical course. - Telephone endoscopist for pathology results in 2 weeks. William Richards MD William RICHARDS MD 05/02/2019 11:33:15 AM Electronically signed by William RICHARDS MD Number of Addenda: 0 Note Initiated On: 05/02/2019 11:08 AM Estimated Blood Loss: Estimated blood loss: none.
[2019-05-02] MEDS ORDERED: GLYCOPYRROLATE INJ 0.2 MG/ML 2 ML VIAL As Ordered ONE (11:39)
--- NOTE | 2019-05-02 11:59 | ROOR ---
Patient Name: Alla Hoyt Procedure Date: 05/02/2019 11:09 AM Date of : 1940 Age: 78 Room: [id number] Gender: Female Note Status: Finalized Procedure: Colonoscopy Indications: Generalized abdominal pain, Clinically significant diarrhea of unexplained origin, Change in bowel habits Providers: William RICHARDS MD Referring MD: Estee Montgomery NP Requesting Provider: Medicines: Monitored Anesthesia Care Complications: No immediate complications. Procedure: Pre-Anesthesia Assessment: - The heart rate, respiratory rate, oxygen saturations, blood pressure, adequacy of pulmonary ventilation, and response to care were monitored throughout the procedure. The Colonoscope was introduced through the anus and advanced to 10 cm into the ileum. The colonoscopy was performed without difficulty. The patient tolerated the procedure well. The quality of the bowel preparation was good. Findings: The perianal and digital rectal examinations were normal. A 4 mm polyp was found in the sigmoid colon. The polyp was sessile. The polyp was removed with a cold snare. Resection and retrieval were complete. Multiple medium-mouthed diverticula were found in the sigmoid colon. Internal hemorrhoids were found during retroflexion. The hemorrhoids were small. The exam was otherwise without abnormality on direct and retroflexion views. Biopsies for histology were taken with a cold forceps from the entire colon for evaluation of microscopic colitis. Impression: - One 4 mm polyp in the sigmoid colon, removed with a cold snare. Resected and retrieved. - Diverticulosis in the sigmoid colon. - Internal hemorrhoids. - The examination was otherwise normal on direct and retroflexion views. - Biopsies were taken with a cold forceps from the entire colon for evaluation of microscopic colitis. Recommendation: - Telephone endoscopist for pathology results in 2 weeks. - Use Bentyl (dicyclomine) 10 mg PO as needed 30 min AC. - (the script was sent to your pharmacy on file) William Richards MD William RICHARDS MD 05/02/2019 11:58:43 AM Electronically signed by William RICHARDS MD Number of Addenda: 0 Note Initiated On: 05/02/2019 11:09 AM Estimated Blood Loss: Estimated blood loss: none.
[2019-05-02 12:30] VITALS: BP 157/92
== END 2019-05-02 12:46 | disposition home or self-care (01) ==
LOC: M OPP 09:47
PROVIDERS: ATTEND Internal Medicine Gastroenterology
DX: K64.8 Other hemorrhoids (principal); K57.30 Diverticulosis of large intestine without perforation or abscess without bleeding; R19.7 Diarrhea, unspecified; R10.84 Generalized abdominal pain; K44.9 Diaphragmatic hernia without obstruction or gangrene; G47.30 Sleep apnea, unspecified; I10 Essential (primary) hypertension; E03.9 Hypothyroidism, unspecified; Z79.899 Other long term (current) drug therapy; Z88.2 Allergy status to sulfonamides; Z88.8 Allergy status to other drugs, medicaments and biological substances

== ENCOUNTER 2019-06-02 11:50 | Emergency (ER) | payer MEDICARE, BC, OTHER ==
[~2019-06-02] VITALS: Ht 154.9 cm; Wt 65.5 kg
[2019-06-02 11:50] VITALS: BP 171/95
[~2019-06-02 11:50] MED LIST changes: +AZEL1SPR3 NARES; +B-10TAB2 PO; +CULTCAP2 PO; +DITR1TAB PO; +FLON27.5 NARES; +METH1TAB PO; -NS 1,000 ML IV ONE; +RECL5INJ2 IV; +RELP40TA PO
[2019-06-02] MEDS ORDERED: DOXY100C (12:06)
[2019-06-02 13:02] LABS: BASO % 0.3 % (0.0-1.0); EOS # 0.1 10^3/uL (0.0-0.5); EOS % 0.8 % (0.0-3.0); HEMATOCRIT 44.1 % (36.0-47.0); LYMPH # 1.5 10^3/uL (1.5-5.0); LYMPH % 19.3 % (24.0-44.0); MEAN CORPUSCULAR HEMOGLOBIN 28.8 pg (27.0-33.0); MEAN CORPUSCULAR HGB CONC 31.7 g/dl (32.0-36.5); MEAN CORPUSCULAR VOLUME 90.7 fl (80.0-96.0); MONO # 0.9 10^3/uL (0.0-0.8); MONO % 12.1 % (0.0-5.0); NEUTROPHILS % 66.8 % (36.0-66.0); PLATELET COUNT, AUTOMATED 276 10^3/uL (150-450); RED BLOOD COUNT 4.86 10^6/uL (4.00-5.40); WHITE BLOOD COUNT 7.5 10^3/uL (4.0-10.0)
[2019-06-02 13:25] LABS: BLOOD UREA NITROGEN 7 MG/DL (7-18); CALCIUM LEVEL 8.5 MG/DL (8.8-10.2); CARBON DIOXIDE LEVEL 29 MEQ/L (21-32); CHLORIDE LEVEL 109 MEQ/L (98-107); CK-MB VALUE MASS < 1.0 NG/ML (<3.6); CPK CREATINE PHOSPHOKINASE 34 U/L (26-192); CREATININE FOR GFR 0.88 MG/DL (0.55-1.30); GLOMERULAR FILTRATION RATE > 60.0 (>39); GLUCOSE, FASTING 102 MG/DL (70-100); MB/CK RELATIVE INDEX 2.94 (< OR =4); NT-PRO BNP 169 PG/ML (<450); POTASSIUM SERUM 4.1 MEQ/L (3.5-5.1); SODIUM LEVEL 143 MEQ/L (136-145); TROPONIN I < 0.02 NG/ML (< 0.10)
--- NOTE | 2019-06-02 14:03 | REP ---
CHEST, TWO VIEWS: There is no evidence of acute infiltrate. No pleural effusion is seen. The heart is normal in size. The mediastinal silhouette is unremarkable. The visualized osseous structures are intact. There is calcification and tortuosity of the thoracic aorta. IMPRESSION: No acute pulmonary disease. Electronically Signed by Stephen Moreno MD 06/02/2019 03:25 P
[2019-06-02] MEDS ORDERED: TESS100C PO (14:18)
--- NOTE | 2019-06-02 17:37 | ECGEPIP ---
[facility] - ED Test Date: 2019-06-02 Pat Name: CARIDAD MINAYA Department: Room: - Gender: Female Cross Tie Maker: dimas : 1940 Requested By: MADY WRIGHT Order Number: [id number] Reading MD: Josey Macias Measurements Intervals [place] Rate: 73 P: 18 MD: 159 QRS: -9 QRSD: 73 T: 29 QT: 371 QTc: 411 Interpretive Statements SINUS RHYTHM WITH OCCASIONAL ECTOPIC PREMATURE COMPLEXES INCREASED ECTOPY/RATE 06/09/16 Electronically Signed on 06-02-2019 17:36:38 EST by Josey Macias
== END 2019-06-02 14:30 | disposition home or self-care (01) ==
LOC: M ED 11:50
DX: R05 Cough (principal); H92.01 Otalgia, right ear; Z87.09 Personal history of other diseases of the respiratory system; I10 Essential (primary) hypertension; E78.5 Hyperlipidemia, unspecified; K31.84 Gastroparesis; K90.0 Celiac disease; K57.92 Diverticulitis of intestine, part unspecified, without perforation or abscess without bleeding; Z86.718 Personal history of other venous thrombosis and embolism

== ENCOUNTER 2019-06-12 12:01 | Inpatient (IN) | payer MEDICARE, BC, OTHER ==
[~2019-06-12] VITALS: Ht 154.9 cm; Wt 68.0 kg
[~2019-06-12 12:01] MED LIST changes: +DOXY100C; +TESS100C PO
[2019-06-12 13:13] LABS: BASO % 0.4 % (0.0-1.0); EOS % 0.5 % (0.0-3.0); HEMATOCRIT 44.8 % (36.0-47.0); HEMOGLOBIN 14.6 g/dl (12.0-15.5); LYMPH # 1.3 10^3/uL (1.5-5.0); LYMPH % 23.8 % (24.0-44.0); MEAN CORPUSCULAR HEMOGLOBIN 29.1 pg (27.0-33.0); MEAN CORPUSCULAR HGB CONC 32.6 g/dl (32.0-36.5); MEAN CORPUSCULAR VOLUME 89.2 fl (80.0-96.0); MONO # 0.7 10^3/uL (0.0-0.8); MONO % 12.2 % (0.0-5.0); NEUTROPHILS # 3.5 10^3/uL (1.5-8.5); NEUTROPHILS % 62.7 % (36.0-66.0); PLATELET COUNT, AUTOMATED 246 10^3/uL (150-450); RED BLOOD COUNT 5.02 10^6/uL (4.00-5.40); WHITE BLOOD COUNT 5.6 10^3/uL (4.0-10.0)
--- NOTE | 2019-06-12 13:16 | REP ---
Single view chest: 06/12/2019. Indication: Chest pain. Comparison: 10 days earlier. Findings: There is no air space consolidation. There is no pleural effusion or pneumothorax. Tortuosity of the thoracic aorta is redemonstrated. Cardiac silhouette is unremarkable. Impression: No acute cardiopulmonary process. Electronically Signed by Khoa Javed DO 06/12/2019 01:08 P
[2019-06-12 13:45] LABS: BLOOD UREA NITROGEN 8 MG/DL (7-18); CALCIUM LEVEL 9.1 MG/DL (8.8-10.2); CARBON DIOXIDE LEVEL 27 MEQ/L (21-32); CHLORIDE LEVEL 107 MEQ/L (98-107); CK-MB VALUE MASS < 1.0 NG/ML (<3.6); CPK CREATINE PHOSPHOKINASE 38 U/L (26-192); CREATININE FOR GFR 0.87 MG/DL (0.55-1.30); FREE T4 1.13 NG/DL (0.76-1.46); GLOMERULAR FILTRATION RATE > 60.0 (>39); GLUCOSE, FASTING 94 MG/DL (70-100); MAGNESIUM LEVEL 2.4 MG/DL (1.8-2.4); MB/CK RELATIVE INDEX 2.63 (< OR =4); NT-PRO BNP 124 PG/ML (<450); POTASSIUM SERUM 4.2 MEQ/L (3.5-5.1); SODIUM LEVEL 143 MEQ/L (136-145); TROPONIN I < 0.02 NG/ML (< 0.10)
[2019-06-12] MEDS ORDERED: GABA800T4 PO (14:57)
[2019-06-12] MEDS ORDERED: VITA50005 PO (14:57)
[2019-06-12 16:03] VITALS: BP 160/70
[2019-06-12] MEDS ORDERED: SUMAtriptan SUCCINATE 25 MG TAB PO PRN (18:00)
[2019-06-12] MEDS ORDERED: ONDANSETRON 4 MG TAB (S0181) PO PRN (18:00)
[2019-06-12] MEDS: AMIODARONE 200 MG TAB (PACERONE) PO SCH (18:07)
--- NOTE | 2019-06-12 18:18 | HPEPDOC ---
General Date of Admission Jun 12, 2019 at 14:43 Date of Service: Jun 12, 2019 Attending Physician: ANGELA SILVA MD Chief Complaint The patient is a 78-year-old female admitted with a reason for visit of Frequent Pvcs;Pre-Syncope. Source: Patient Exam Limitations: No limitations Timing/Duration: Getting worse Severity: Severe Associated Symptoms: Other (palpitations) History of Present Illness Ms. Hoyt is a 78 yo woman with a history of hypertension, hyperlipidemia, hypothyroidism, anxiety, who was recently treated for pneumonia in 05/2019 and reports having developed palpitations since then. She reports that her pneumonia resolved well and her breathing is back to baseline but has had frequent sensations of palpitations that are worsened with exertion to the extent of becoming light headed and near syncopal that they have become debilitating that she had to present to the ED. She otherwise denies christi syncope, chest pain, shortness of breath, leg swelling, fevers, chills, new medications, recent travel or weight loss. In the ED she arrives hypertensive to 207/105 with no pain, saturating 99% on room air, HR 85, RR 18 and T 96.7. her BP eventually downtrended to SBP 160s without any intervention. Work up was notable for WBC 5.6, Hgb 14.6, Hct 44.8, TSH 2.49, free T4 1.13, BNP 124, CXR without acute pathology, troponin <0.02, mag 2.4, K 4.2 and Cr 0.87. She was admitted to medicine for management of the symptomatic frequent PVCs and kept on telemetry. I consulted Dr. Amos, the patient's billet inspector, and in speaking with him, he thought she should get amiodarone 200mg daily and he will defer to seeing her as an outpatient at this time. Home Medications Scheduled Amlodipine Besylate (Amlodipine Besylate) 2.5 Mg Tab, 2.5 MG PO DAILY, (Reported) Azelastine HCl (Azelastine HCl) 0.1% Harvel.pump, 2 SPRAY NARES BID, (Reported) Ergocalciferol (Vitamin D2) (Vitamin D2) 50,000 Units Cap, 50,000 UNIT PO 2XW, (Reported) SUNDAY AND SUNDAY Fluticasone Furoate (Flonase Sensimist) 5.9 Ml Harvel.susp, 2 PUFF NARES QHS, (Reported) Gabapentin (Gabapentin) 800 Mg Tablet, 800 MG PO QHS, (Reported) L. Rhamnosus GG/Inulin (Culturelle Capsule) 1 Each Cap.sprink, 1 CAP PO DAILY, (Reported) Levothyroxine Sodium (Levothyroxine Sodium) 75 Mcg Tab, 75 MCG PO DAILY, (Reported) Methenamine Mandelate (Methenamine Mandelate) 1 Gm Tablet, 1 GM PO DAILY, (Reported) Oxybutynin Chloride (Ditropan Xl) 10 Mg Tab.er.24, 10 MG PO DAILY, (Reported) Propranolol HCl (Propranolol HCl ER) 60 Mg Cap, 60 MG PO QHS, (Reported) Rosuvastatin Calcium (Crestor) 40 Mg Tab, 40 MG PO QHS, (Reported) Zoledronic Acid/Mannitol-Water (Reclast 5 mg/100 ml Solution) 5 Mg/100 Ml Pggybk.btl, 5 MG IV ASDIRECTED, (Reported) ONCE A YEAR Scheduled PRN Acetaminophen (Tylenol) 325 Mg Tablet, 650 MG PO TID PRN for PAIN, (Reported) Albuterol Sulfate (Proair Hfa) 108 Mcg/Act Aer, 2 PUFF INH QID PRN for SHORTNESS OF BREATH, (Reported) Eletriptan Hydrobromide (Relpax) 40 Mg Tablet, 40 MG PO DAILY PRN for MIGRAINE, (Reported) Ondansetron HCl (Zofran) 4 Mg Tablet, 4 MG PO Q6H PRN for NAUSEA OR VOMITING, (Reported) Allergies Coded Allergies: ENVIROMENTAL (Verified Allergy, Mild, 06/02/19) Sulfa (Sulfonamide Antibiotics) (Verified Allergy, Unknown, rash, N/V, 1 08/03/18) venlafaxine (Verified Allergy, Unknown, Nausea, rash, 06/02/19) Past Medical History Medical History 1. High blood pressure. 2. High cholesterol. 3. Hypothyroidism. 4. Anxiety. 5. Multiple orthopedic spinal issues. Surgical History 1. Left total hip. 2. Hysterectomy. 3. Breast reduction. 4. Transvaginal tape. 5. Appendectomy. 6. Tonsils and adenoids. 7. Cholecystectomy. 8. Laminectomy on the right. 9. Heriberto discectomy. 10. 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 Family History Significant Family History: No pertinent family hx Social History * Smoker: former Smoker (quit in 2000) Alcohol: rarely Drugs: denies Recent Travel/Sick Contacts: Denies: Recent travel, Recent sick contacts Psychosocial History: No pertinent psych hx This patient is retired. She quit smoking in 2000. She occasionally drinks alcohol. A-FIB/CHADSVASC A-FIB History Current/History of A-Fib/PAF?: No Current PO Anticoag Therapy: No Age/Risk Factor Scoring CHADSVASC: CHADSVASC Response (Comments) Value Age Risk Factor Age >/= 75 years old 2 Gender Risk Factor Female 1 Hx of CHF No 0 Hx of HTN Yes 1 Hx of Stroke/TIA/or VTE No 0 Hx of Diabetes No 0 Hx of Vascular Disease No 0 Total 4 Treatment Treatment ordered: NONE Reason Anticoagulant not given: Not indicated/[id number] Review of Systems Constitutional: Denies: Chills, Fever, Night Sweats Eyes: Denies: Pain, Vision change ENT: Denies: Head Aches, Ear Pain, Dysphagia Skin: Denies: Rash, Lesions, Breakdown Pulmonary: Denies: Dyspnea, Cough Cardiovascular: Reports: Palpitations, Lt Headedness; Denies: Chest Pain, Orthopnea, Paroxysmal Noc. Dyspnea, Edema Gastrointestinal: Denies: Nausea, Vomiting, Abdominal Pain, Diarrhea Genitourinary: Denies: Dysuria, Frequency, Incontinence, Retention Hematologic: Denies: Bruising, Bleeding Excessively Endocrine: Denies: Polydipsia, Polyphagia, Polyuria, Heat Intolerance, Cold Intolerance, Other Endocrine Sx Musculoskeletal: Denies: Neck Pain, Back Pain, Shoulder Pain, Arm Pain, Hand Pain, Leg Pain, Foot Pain, Joint Pain, Muscle Pain, Spasms, Other Symptoms Neurological: Denies: Weakness, Numbness, Incoordination, Change in speech, Confusion, Seizures, Other Symptoms Psych: Denies: Mood Normal, Anxiety, Depression, Memory Issues, Thoughts of Self Harm, Anger, Thoughts of Harming Other, Other Psych Physical Examination General Exam: Positive: Alert, No Acute Distress Eye Exam: Positive: PERRLA, Conjunctiva & lids normal, EOMI; Negative: Sclera icteric ENT Exam: Positive: Atraumatic, Mucous membr. moist/pink, Pharynx Normal Neck Exam: Positive: Supple; Negative: JVD, thyromegaly Chest Exam: Positive: Clear to auscultation, Normal air movement Heart Exam: Positive: Regular Rhythm (Sinus rhythm with frequent ectopic beats), Normal S1, Normal S2; Negative: Murmurs, Rubs Telemetry: Positive: PVCs (numerous, very frequent) Abdomen Exam: Positive: Normal bowel sounds, Soft; Negative: Tenderness, Hepatospenomegaly Extremity Exam: Positive: Normal pulses; Negative: Clubbing, Cyanosis, Edema Skin Exam: Positive: Nl turgor and temperature; Negative: Breakdown, Lesion Neuro Exam: Positive: Normal Gait, Normal Speech, Cranial Nerves 3-12 NL, Reflexes 2+ Psych Exam: Positive: Mental status NL, Mood NL, Oriented x 3 Vital Signs Vital Signs Date Time Temp Pulse Resp B/P (MAP) Pulse Ox O2 Delivery O2 Flow Rate FiO2 06/12/19 16:03 70 18 160/70 (100) 97 Room Air 06/12/19 15:30 98.4 Laboratory Data Labs 24H Laboratory Tests 2 06/12/19 13:01: Immature Granulocyte % (Auto) 0.4, Neutrophils (%) (Auto) 62.7, Lymphocytes (%) (Auto) 23.8L, Monocytes (%) (Auto) 12.2H, Eosinophils (%) (Auto) 0.5, Basophils (%) (Auto) 0.4, Neutrophils # (Auto) 3.5, Lymphocytes # (Auto) 1.3L, Monocytes # (Auto) 0.7, Eosinophils # (Auto) 0.0, Basophils # (Auto) 0.0, Nucleated Red Blood Cells % (auto) 0.0, Anion Gap 9, Glomerular Filtration Rate > 60.0, Calcium Level 9.1, Magnesium Level 2.4, Total Creatine Kinase 38, Creatine Kinase MB < 1.0, Creatine Kinase MB Relative Index 2.63, Troponin I < 0.02, OJ-Jyh-V-Type Natriuretic Peptide 124, Thyroid Stimulating Hormone (TSH) 2.490, Free Thyroxine 1.13 CBC/BMP Laboratory Tests 06/12/19 13:01 Assessment/Plan Ms. Hoyt is a 78 yo woman with a history of hypertension, hyperlipidemia, hypothyroidism, anxiety, who was recently treated for pneumonia in 05/2019 who is now admitted with symptomatic palpitations with frequents PVCs on telemetry without electrolyte disturbances, within normal range thyroid function tests, non ischemic EKG, no evidence of heart failure and signs of active infection. Will admit her to medicine with telemetry and start amio [address] Amos's recommendation. 1. Presyncope with palpitations and frequent PVCs: -Medsurg with telemetry -chest x-ray was unrevealing -start amio [address] Amos's recommendation -will continue propanolol 60 QHS per my discussion with Dr. Amos 2. Hypertension. Blood pressure was elevated in the emergency room but improved by the time she arrived on the floor. -Continue with Norvasc 2.5 and propanolol 60 3. Hypothyroidism. -Continue home Synthroid 4. Hyperlipidemia. -Continue with Crestor 5. Migraine headaches -Sumatriptan PRN 6. Obstructive sleep apnea. -CPAP Deep vein thrombosis prophylaxis: heparin [id number] Diet: 2g salt Plan / VTE VTE Prophylaxis Ordered?: Yes ANGELA SILVA MD Jun 12, 2019 18:18
[2019-06-12 20:00] VITALS: BP 152/81
[2019-06-12] MEDS: ACETAMINOPHEN TAB 650MG DOSE (2X325MG) PO PRN (20:35)
[2019-06-12] MEDS: GABAPENTIN 400 MG CAP PO SCH (21:37)
[2019-06-12] MEDS: ROSUVASTATIN 10 MG TAB (CRESTOR) PO SCH (21:37)
[2019-06-12] MEDS: FLUTICASONE PROP 0.05% NASAL SPRAY 16 GM (FLONASE) NARES SCH (21:38)
[2019-06-12] MEDS: PROPRANOLOL 60 MG LA CAP PO SCH (21:38)
[2019-06-12] MEDS: AZELASTINE 137MCG NASAL SPY 30 ML (ASTELIN) SCH (21:38)
[2019-06-12] MEDS: HEPARIN SOD (PORCINE) 5000 UNITS/ML VIAL SC SCH (21:40)
--- NOTE | 2019-06-12 22:07 | ECGEPIP ---
[facility] - ED Test Date: 2019-06-12 Pat Name: CARIDAD MINAYA Department: Room: - Gender: Female Policy Change Clerks Supervisor: berhane : 1940 Requested By: Josey Macias Order Number: [id number] Reading MD: Josey Macias Measurements Intervals [place] Rate: 67 P: 17 DC: 162 QRS: -12 QRSD: 76 T: 35 QT: 376 QTc: 398 Interpretive Statements SINUS RHYTHM WITH FREQUENT ECTOPIC PREMATURE COMPLEXES NONSPECIFIC T-WAVE ABNORMALITY ABNORMAL RHYTHM ECG INCREASED ECTOPY 06/02/19 Electronically Signed on 06-12-2019 22:07:47 EST by Josey Macias
--- NOTE | 2019-06-12 23:59 | ECHO ---
DATE OF PROCEDURE: 06/12/2019 REFERRING PHYSICIAN: Dr. Lissett Mcdonald INDICATION: Premature ventricular contractions (PVCs), presyncope. HEIGHT: 155 cm WEIGHT: 67 kg 2D MEASUREMENTS: Aortic annulus: 2.0 cm Left atrium: 2.8 cm Aortic root: 3.0 cm Ventricular septum: 1.12 cm Posterior wall: 0.97 cm Left ventricle diastole: 3.7 cm Inferior vena cava: 1.8 cm DOPPLER MEASUREMENTS: Aortic valve velocity: 103 cm/s LVOT velocity: 70.7 cm/s No aortic regurgitation. No aortic stenosis. Mild mitral regurgitation. No mitral stenosis. Mitral E velocity: 57.7 cm/s Mitral A velocity: 85.9 cm/s Mitral deceleration time: 278 ms Trace tricuspid regurgitation. Estimated right ventricle systolic pressure: 28 mmHg assuming a pressure of 5 mmHg. Pulmonary artery systolic pressure: 12 mmHg. MITRAL ANNULAR TISSUE DOPPLER: E prime septal: 3.2 cm/s E prime lateral: 2.6 cm/s DESCRIPTION: Rhythm was sinus with frequent PVCs. Image quality was fair. No pericardial effusion. CONCLUSIONS: 1. Normal left ventricle internal dimensions and wall thickness. Normal regional LV wall motion and wall thickening. Normal LV systolic function. Left ventricular ejection fraction (LVEF) 60% by visual estimate. 2. Grade 1 LV diastolic dysfunction (impaired relaxation filling pattern). 3. Otherwise normal appearing echocardiogram Doppler findings.
[2019-06-13] VITALS (8 sets, daily range): BP systolic 115–160; BP diastolic 66–93
[2019-06-13 05:43] LABS: HEMATOCRIT 40.8 % (36.0-47.0); HEMOGLOBIN 13.3 g/dl (12.0-15.5); MEAN CORPUSCULAR HEMOGLOBIN 29.3 pg (27.0-33.0); MEAN CORPUSCULAR HGB CONC 32.6 g/dl (32.0-36.5); MEAN CORPUSCULAR VOLUME 89.9 fl (80.0-96.0); PLATELET COUNT, AUTOMATED 240 10^3/uL (150-450); RED BLOOD COUNT 4.54 10^6/uL (4.00-5.40); WHITE BLOOD COUNT 5.4 10^3/uL (4.0-10.0)
[2019-06-13 06:11] LABS: CALCIUM LEVEL 8.3 MG/DL (8.8-10.2); CREATININE FOR GFR 0.96 MG/DL (0.55-1.30); MAGNESIUM LEVEL 2.4 MG/DL (1.8-2.4); POTASSIUM SERUM 3.9 MEQ/L (3.5-5.1)
[2019-06-13] MEDS: HEPARIN SOD (PORCINE) 5000 UNITS/ML VIAL SC SCH ×3 (07:01→21:20)
[2019-06-13] MEDS: LEVOTHYROXINE 75MCG TABLET (0.075MG) PO SCH (07:05)
[2019-06-13] MEDS: AMIODARONE 200 MG TAB (PACERONE) PO SCH (09:41)
[2019-06-13] MEDS: oxyBUTYnin *DITROPAN XL* 5 MG TABCR PO SCH (09:41)
[2019-06-13] MEDS: AZELASTINE 137MCG NASAL SPY 30 ML (ASTELIN) SCH ×2 (09:42→21:16)
[2019-06-13] MEDS: ACETAMINOPHEN TAB 650MG DOSE (2X325MG) PO PRN (09:52)
[2019-06-13] MEDS ORDERED: AMIODARONE 200 MG TAB (PACERONE) PO SCH (13:00)
--- NOTE | 2019-06-13 13:40 | IPNPDOC ---
Text Note Date of Service The patient was seen on 06/13/19. NOTE Subjective: -Doing well this morning -Was started on amio 200QD per Dr. Amos's recs on conversation about her presentation --> persistent PVCs while here with exertion Called Dr. Amos who recommended increasing the amio to 200 QID with plan to reduce to 200 daily by discharge Objective: General Exam: Alert, No Acute Distress Eye Exam: PERRLA, Conjunctiva & lids normal, EOMI, anicteric ENT Exam: Atraumatic, MMM Neck: no JVD or thyromegaly, supple Chest Exam: Clear to auscultation, Normal air movement, no crackles or wheezing Heart Exam: Sinus rhythm with now infrequent ectopic beats, Normal S1, Normal S2, no murmurs, rubs Abdomen Exam: Normal bowel sounds, Soft, NTND Extremity Exam: WWP, 2+ DP pulses, no LE edema Skin Exam: WNL turgor and temperature, with no rashes or breakdown Neuro Exam: Normal Speech, cranial Nerves 2-12 WNL, moving all extremities Psych Exam: Mental status NL, Oriented x 3 Labs: Reviewed WBC 5.4 Hgb 13.3 Hct 40.8 Platelets 240 Na 141 K 3.9 Mag 2.4 Cr 0.96 Assessment/Plan Ms. Hoyt is a 78 yo woman with a history of hypertension, hyperlipidemia, hypothyroidism, anxiety, who was recently treated for pneumonia in 05/2019 who is now admitted with symptomatic palpitations with frequents PVCs on telemetry without electrolyte disturbances, within normal range thyroid function tests, non ischemic EKG, no evidence of heart failure and signs of active infection, now started on amio [address] Amos's recommendation. 1. Presyncope with palpitations and frequent PVCs: -Telemetry -chest x-ray was unrevealing, no other evidence of infection -increase amio 200 QD to QID per Dr. Amos's recommendation, who will see the patient today for official consultation -will continue propanolol 60 QHS per my discussion with Dr. Amos -Will have her walk with PT today and do orthostatic vitals as well 2. Hypertension. Blood pressure was elevated in the emergency room but improved by the time she arrived on the floor. -Continue with Norvasc 2.5 and propanolol 60 3. Hypothyroidism. -Continue home Synthroid 4. Hyperlipidemia. -Continue with Crestor 5. Migraine headaches -Sumatriptan PRN 6. Obstructive sleep apnea. -CPAP Deep vein thrombosis prophylaxis: heparin [id number] Diet: 2g salt VS,Fishbone, I+O VS, Fishbone, I+O Laboratory Tests 06/12/19 13:01 06/13/19 05:34 Vital Signs Date Time Temp Pulse Resp B/P (MAP) Pulse Ox O2 Delivery O2 Flow Rate FiO2 06/13/19 08:00 97.7 50 18 132/66 (88) 97 Room Air I&O- Last 24 Hours up to 6 AM 06/13/19 06:00 Intake Total 600 ml Balance 600 ml ANGELA SILVA MD Jun 13, 2019 08:53
--- NOTE | 2019-06-13 17:05 | CR ---
DATE OF CONSULTATION: 06/13/2019 REFERRING PHYSICIAN: Dr. Lissett Mcdonald REASON FOR CONSULTATION: Premature ventricular contractions (PVCs). HISTORY OF THE PRESENT ILLNESS: Alla Hoyt is a 78-year-old woman with a longstanding history of palpitations for many years. She had pneumonia May 2019 and from then on has been having frequent palpitations that occur typically several times an hour. She describes them as brief "flutters, thumping" lasting for a few seconds at a time, which rarely make her dizzy/lightheaded. She has systemic hypertension, hyperlipidemia, hypothyroidism, and anxiety. Alcohol consumption is described as rare. She had an echocardiogram Doppler performed on this admission, 06/12/2019, which has been reported under separate cover. She had normal left ventricular (LV) internal dimensions and wall thickness with normal regional wall motion and normal LV systolic function (LVEF 60% by visual estimate). Grade 1 LV diastolic dysfunction. Otherwise normal appearing echocardiogram Doppler findings. She is not bothered by any chest pain, pressure, or tightness, wheezing or heaviness with or without activity. No exertional dyspnea. No leg or ankle edema. She reports she had an episode of passing out 2 years ago. No prior embolic events. No intermittent claudication. OTHER PAST MEDICAL AND SURGICAL HISTORY: Systemic hypertension, obesity, hypercholesterolemia, hypothyroidism, anxiety, multiple orthopedic spinal issues. Status post left total hip replacement. Status post hysterectomy. Status post breast reduction surgery. Status post transvaginal tape. Status post appendectomy. Status post tonsillectomy and adenoidectomy. Status post cholecystectomy. Status post laminectomy on the right. Status post zeus discectomy. 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 Migraine headaches. ADVERSE DRUG REACTIONS: SULFONAMIDE ANTIBIOTICS (rash). VENLAFAXINE (nausea and rash). MEDICATIONS PRIOR TO ADMISSION: - Tylenol 325 mg times two three times a day as needed for pain - ProAir HFA two puffs four times a day as needed - amlodipine 2.5 mg daily - azelastine two sprays both nares twice a day - Relpax 40 mg daily as needed for migraines - vitamin D2 5000 units twice a week (Mondays and ) - fluticasone two puffs both nares nightly - gabapentin 800 mg nightly - L. Rhamnosus one cap daily - levothyroxine 75 mcg daily - methenamine 1 gram daily - Zofran 4 mg every 6 hours as needed for nausea or vomiting - Ditropan XL 10 mg daily - propranolol 60 mg nightly - rosuvastatin 40 mg nightly - Reclast 5 mg IV once a year or as directed (medication held) FAMILY HISTORY: Noncontributory at the patient's current age. SOCIAL HISTORY: Prior smoker (quit 2000). Rare intake of alcohol. No illicit drugs. No recent travel or sick contacts. Retired. Prior smoker for which she quit in 2000. REVIEW OF SYSTEMS: As per history of the present illness above. No anxiety, panic attacks, or depression. She has migraine headaches. All other 10-point review of systems negative. Recent pneumonia in May 2019. PHYSICAL EXAMINATION: Pleasant overweight woman who appears her chronologic age, who is not in any respiratory or psychologic distress. Height 61 inches. Weight 67 kg. Pulse 63, temperature 97.3, respiratory rate 21, blood pressure 120/70, oxygen saturation 100% on room air. No conjunctival pallor, scleral icterus or xanthomas. Oral mucosa was moist and without pallor or cyanosis. Jugular venous pulsations were at 3 cm. Trachea midline. No palpable thyroid. No clubbing, nail bed cyanosis, or splinter hemorrhages. No skin lesions, skin pallor, or icterus. Oriented to person, place and time. Mood and affect normal. Curvature of the spine normal. Gait normal. Gross motor strength and tone normal. No abnormal muscle atrophy, fasciculations, or tremors. Respiratory expansion effort was good. No crackles or wheezes. No palpable apex beat. No left parasternal lifts, heaves, thrills, or palpable heart sounds. First and second heart sounds normal. No S3 or S4 or murmurs. Carotids were normal in volume and contour and no carotid bruits. No palpable abdominal aorta but difficult to palpate due to abdominal obesity. Pedal pulses normal. No peripheral edema. Abdomen was obese, soft, nontender with normal bowel sounds. No hepatosplenomegaly or other organomegaly. Liver span difficult to assess due to abdominal obesity. Stool for occult blood not presently indicated. INVESTIGATIONS: Echocardiogram Doppler report as summarized above. Portable chest x-ray 06/12/2019 reported no acute cardiopulmonary process. No air space consolidation. No pleural effusion or pneumothorax. Tortuosity of the thoracic aorta. Cardiac silhouette was said to be unremarkable. ECG 06/12/2019 at 12:26 p.m. shows sinus rhythm with frequent uniform isolated PVCs, nonspecific T-wave abnormalities. Laboratory work 06/13/2019 was reviewed: WBC 5.4, hemoglobin 13.3, hematocrit 40.8, platelets 240. Sodium 141, potassium 3.9, chloride 108, CO2 29, creatinine 0.96, estimated GFR 60, calcium 8.3, magnesium 2.4. Laboratory work 06/12/2019 showed NT pro-BNP 124, TSH 2.490, free T4 1.13, troponin I less than 0.02, CPK 38, CPK-MB less than 1.0. ASSESSMENT AND RECOMMENDATIONS: 1. Frequent uniform PVCs for which the patient is symptomatic with frequent palpitations. Her echocardiogram Doppler shows normal LV systolic function. She is not known to have any ischemic heart disease. No pathologic Q waves or ischemic repolarization abnormalities are seen on ECG. I think because the patient is so highly symptomatic that antiarrhythmic drug therapy is justified. I explained to the patient that I have changed my mind with regards to using amiodarone, and I would rather start with something milder. Specifically, I have replaced the amiodarone with flecainide beginning at 50 mg every 12 hours. I explained to the patient that there is some risk of side effects with flecainide, including the possibility of making ventricular cardiac rhythm disturbances worse, including the possibility of ventricular tachycardia. She will be on telemetry while flecainide is initiated for safety. My plan is to see her back as an outpatient, and at that time order a followup 24-hour Holter monitor to see her PVC burden on flecainide. This plan was explained to the referring physician. Her potassium and magnesium levels were normal. She should absolutely stay away from all alcohol. If she has a high PVC burden and remains symptomatic with frequent PVCs despite flecainide, then another option, if her PVCs are predominantly uniform, will be PVC radiofrequency ablation. 2. Systemic hypertension. Blood pressure presently controlled. Continue propranolol and amlodipine at the current doses. Propranolol has the additional compelling indication in migraine prophylaxis, which she finds helpful. 3. Hyperlipidemia. No recent lipid values have been available for my review. She is maintained on Crestor. I recommend for now that the patient be on a Dietary Approaches to Stop Hypertension (DASH) diet. 4. Overweight. Body mass index (BMI) 27.9. While in the hospital, I recommend that she be on a DASH diet. manager terminal, I recommend that the patient be on a whole food, low fat, low sodium, plant-based diet. Thank you kindly for asking me to participate in the cardiac care of Mrs. Alla Hooksthomas.
[2019-06-13] MEDS: FLUTICASONE PROP 0.05% NASAL SPRAY 16 GM (FLONASE) NARES SCH (21:16)
[2019-06-13] MEDS: GABAPENTIN 400 MG CAP PO SCH (21:19)
[2019-06-13] MEDS: ROSUVASTATIN 10 MG TAB (CRESTOR) PO SCH (21:19)
[2019-06-13] MEDS: FLECAINIDE 50MG TABLET PO SCH (21:20)
[2019-06-13] MEDS: PROPRANOLOL 60 MG LA CAP PO SCH (22:17)
[2019-06-14 04:00] VITALS: BP 138/72
[2019-06-14] MEDS: ACETAMINOPHEN TAB 650MG DOSE (2X325MG) PO PRN (04:33)
[2019-06-14] MEDS: HEPARIN SOD (PORCINE) 5000 UNITS/ML VIAL SC SCH ×3 (06:10→22:28)
[2019-06-14] MEDS: LEVOTHYROXINE 75MCG TABLET (0.075MG) PO SCH (06:10)
[2019-06-14 06:13] LABS: HEMATOCRIT 41.3 % (36.0-47.0); HEMOGLOBIN 12.7 g/dl (12.0-15.5); MEAN CORPUSCULAR HEMOGLOBIN 28.2 pg (27.0-33.0); MEAN CORPUSCULAR HGB CONC 30.8 g/dl (32.0-36.5); MEAN CORPUSCULAR VOLUME 91.8 fl (80.0-96.0); PLATELET COUNT, AUTOMATED 233 10^3/uL (150-450); WHITE BLOOD COUNT 5.6 10^3/uL (4.0-10.0)
[2019-06-14 06:30] LABS: CALCIUM LEVEL 8.4 MG/DL (8.8-10.2); CREATININE FOR GFR 1.08 MG/DL (0.55-1.30); GLOMERULAR FILTRATION RATE 52.4 (>39); MAGNESIUM LEVEL 2.3 MG/DL (1.8-2.4); POTASSIUM SERUM 3.6 MEQ/L (3.5-5.1)
[2019-06-14 08:00] VITALS: BP 117/76
[2019-06-14] MEDS: AZELASTINE 137MCG NASAL SPY 30 ML (ASTELIN) SCH ×2 (08:23→20:34)
[2019-06-14] MEDS: oxyBUTYnin *DITROPAN XL* 5 MG TABCR PO SCH (08:44)
[2019-06-14] MEDS ORDERED: POTASSIUM CHLORIDE 10 MEQ SR TABLET PO ONE (09:00)
[2019-06-14] MEDS: FLECAINIDE 50MG TABLET PO SCH ×3 (09:00→20:34)
[2019-06-14 12:00] VITALS: BP 133/66
--- NOTE | 2019-06-14 14:35 | IPNPDOC ---
Text Note Date of Service The patient was seen on 06/14/19. NOTE Subjective: -Asymptomatic bradycardia overnight with improvement of PVCs -No complaints this morning Interval events: -Was seen by Dr. Amos. Initially had spoken with him and he suggested increasing amio to 200QID from 200QD after she had persistent frequent PVCs with tachycardia with exertion. Then he saw her and decided to switch over to flecainide and continue her propanolol 60 QHS. So she was started on flecainide yesterday evening and overnight was noted to be in sinus miguel with persistent frequent PVCs, and was otherwise asymptomatic -She is bradycardic this morning as well and am holding her AM novarsc as she is normotensive and miguel, and will delay the flecainide to cardiology recs of the day. Objective: General Exam: Alert, No Acute Distress Eye Exam: PERRLA, Conjunctiva & lids normal, EOMI, anicteric ENT Exam: Atraumatic, MMM Neck: no JVD or thyromegaly, supple Chest Exam: Clear to auscultation, Normal air movement, no crackles or wheezing Heart Exam: Sinus rhythm with bradycardia and some ectopic beats, Normal S1, Normal S2, no murmurs, rubs Abdomen Exam: Normal bowel sounds, Soft, NTND Extremity Exam: WWP, 2+ DP pulses, no LE edema Skin Exam: WNL turgor and temperature, with no rashes or breakdown Neuro Exam: Normal Speech, cranial Nerves 2-12 WNL, moving all extremities Psych Exam: Mental status NL, Oriented x 3 Labs: Reviewed WBC 5.6 Hgb 12.7 Hct 41.3 Platelets 233 Na 144 K 3.6 Mag 2.3 Cr 1.08 Assessment/Plan Ms. Hoyt is a 78 yo woman with a history of hypertension, hyperlipidemia, hypothyroidism, anxiety, who was recently treated for pneumonia in 05/2019 who is now admitted with symptomatic palpitations with frequents PVCs on telemetry without electrolyte disturbances, within normal range thyroid function tests, non ischemic EKG, no evidence of heart failure and signs of active infection, now switched to flecainide with persisting PVCs and c/b new asymptomatic bradycardia. 1. Presyncope with palpitations and frequent PVCs: -Telemetry -chest x-ray was unrevealing, no other evidence of infection -switched to flecainide by Dr. Amos's recommendation -will reduce propanolol 60 to 40 QHS per 's recommendation given her recent bradycardia 2. Hypertension. Blood pressure was elevated in the emergency room but improved by the time she arrived on the floor. -Hold Norvasc 2.5 and propanolol 60 with soft BPs -switched to DASH diet 3. Hypothyroidism. -Continue home Synthroid 4. Hyperlipidemia. -Continue with Crestor 5. Migraine headaches -Sumatriptan PRN -Propanolol 40 QHS 6. Obstructive sleep apnea. -CPAP Deep vein thrombosis prophylaxis: heparin [id number] Diet: dash diet VS,Fishbone, I+O VS, Fishbone, I+O Laboratory Tests 06/14/19 05:38 Vital Signs Date Time Temp Pulse Resp B/P (MAP) Pulse Ox O2 Delivery O2 Flow Rate FiO2 06/14/19 08:00 97.7 47 18 117/76 (90) 98 Room Air I&O- Last 24 Hours up to 6 AM 06/14/19 06:00 Intake Total 240 ml Output Total 0 ml Balance 240 ml ANGELA SILVA MD Jun 14, 2019 08:52
[2019-06-14 16:00] VITALS: BP 145/77
[2019-06-14 20:00] VITALS: BP 136/77
[2019-06-14] MEDS: FLUTICASONE PROP 0.05% NASAL SPRAY 16 GM (FLONASE) NARES SCH (20:34)
[2019-06-14] MEDS: ROSUVASTATIN 10 MG TAB (CRESTOR) PO SCH (20:34)
[2019-06-14] MEDS: GABAPENTIN 400 MG CAP PO SCH (20:34)
[2019-06-14] MEDS: PROPRANOLOL 20 MG TAB PO SCH (20:35)
--- NOTE | 2019-06-14 21:44 | ECGEPIP ---
[facility] Test Date: 2019-06-14 Pat Name: CARIDAD MINAYA Department: Room: [place] [address] Gender: Female [employer]: MARKEL : 1940 Requested By: ANGELA Gonzalez Order Number: [id number] Reading MD: Monserrat Oh Measurements Intervals [place] Rate: 54 P: 17 NE: 194 QRS: -3 QRSD: 79 T: 90 QT: 410 QTc: 390 Interpretive Statements SINUS BRADYCARDIA WITH OCCASIONAL VENTRICULAR PREMATURE COMPLEXES NONSPECIFIC T-WAVE ABNORMALITY SIMILAR TO 06/12/2019 Electronically Signed on 06-14-2019 21:44:15 EST by Monserrat Oh
[2019-06-14 23:59] VITALS: BP 118/58
[2019-06-15 04:00] VITALS: BP 140/81
[2019-06-15 06:06] LABS: HEMOGLOBIN 13.6 g/dl (12.0-15.5); MEAN CORPUSCULAR HEMOGLOBIN 29.2 pg (27.0-33.0); MEAN CORPUSCULAR HGB CONC 31.6 g/dl (32.0-36.5); MEAN CORPUSCULAR VOLUME 92.3 fl (80.0-96.0); PLATELET COUNT, AUTOMATED 271 10^3/uL (150-450); RED BLOOD COUNT 4.66 10^6/uL (4.00-5.40); WHITE BLOOD COUNT 6.5 10^3/uL (4.0-10.0)
[2019-06-15 06:32] LABS: CALCIUM LEVEL 9.7 MG/DL (8.8-10.2); CREATININE FOR GFR 1.07 MG/DL (0.55-1.30); GLOMERULAR FILTRATION RATE 52.9 (>39); MAGNESIUM LEVEL 2.2 MG/DL (1.8-2.4); POTASSIUM SERUM 4.5 MEQ/L (3.5-5.1)
[2019-06-15] MEDS: LEVOTHYROXINE 75MCG TABLET (0.075MG) PO SCH (06:42)
[2019-06-15] MEDS: HEPARIN SOD (PORCINE) 5000 UNITS/ML VIAL SC SCH ×3 (06:42→21:02)
[2019-06-15] MEDS: ACETAMINOPHEN TAB 650MG DOSE (2X325MG) PO PRN (06:44)
[2019-06-15 08:00] VITALS: BP 146/75
[2019-06-15] MEDS: FLECAINIDE 50MG TABLET PO SCH ×2 (08:56→21:04)
[2019-06-15] MEDS: PROPRANOLOL 20 MG TAB PO SCH (08:56)
[2019-06-15] MEDS: oxyBUTYnin *DITROPAN XL* 5 MG TABCR PO SCH (08:57)
[2019-06-15] MEDS: AZELASTINE 137MCG NASAL SPY 30 ML (ASTELIN) SCH ×2 (08:57→21:02)
--- NOTE | 2019-06-15 11:14 | IPNPDOC ---
Text Note Date of Service The patient was seen on 06/15/19. NOTE Subjective: -Asymptomatic bradycardia overnight with persistence of PVCs and some bigeminy, though improved from time of admission -No complaints this morning Interval events: -Sinus bradycardia -Reduced her propanolol to [address] on 20 BID as pharmacy did not hav e the ER in capsules lower than 60mg. Objective: General Exam: Alert, No Acute Distress Eye Exam: PERRLA, Conjunctiva & lids normal, EOMI, anicteric ENT Exam: Atraumatic, MMM Neck: no JVD or thyromegaly, supple Chest Exam: Clear to auscultation, Normal air movement, no crackles or wheezing Heart Exam: Sinus rhythm with bradycardia and some ectopic beats, Normal S1, Normal S2, no murmurs, rubs Abdomen Exam: Normal bowel sounds, Soft, NTND Extremity Exam: WWP, 2+ DP pulses, no LE edema Skin Exam: WNL turgor and temperature, with no rashes or breakdown Neuro Exam: Normal Speech, cranial Nerves 2-12 WNL, moving all extremities Psych Exam: Mental status NL, Oriented x 3 Labs: Reviewed WBC 6.5 Hgb 13.6 Hct 43 Platelets 271 Na 145 K 4.5 Mag 2.2 Cr 1.07 Assessment/Plan Ms. Hoyt is a 78 yo woman with a history of hypertension, hyperlipidemia, hypothyroidism, anxiety, who was recently treated for pneumonia in 05/2019 who is now admitted with symptomatic palpitations with frequents PVCs on telemetry without electrolyte disturbances, within normal range thyroid function tests, non ischemic EKG, no evidence of heart failure and no signs of active infection, now switched to flecainide with persisting PVCs and c/b new asymptomatic bradycardia. 1. Presyncope with palpitations and frequent PVCs: -Telemetry -chest x-ray was unrevealing, no other evidence of infection -switched to flecainide by Dr. Amos's recommendation -Continues to be bradycardic this AM despite 20 BID IR propanol from 60 QHS E --> will not discontinue propanolol and switch her headaches ppx to topamax aft er discussing with . 2. Hypertension. Blood pressure was elevated in the emergency room but improved by the time she arrived on the floor. -continue Norvasc 2.5 and propanolol 20 BID, with hold parameters to hold for SBP<100, and to hold propanol for HR<60 -continue DASH diet 3. Hypothyroidism. -Continue home Synthroid 4. Hyperlipidemia. -Continue with Crestor 5. Migraine headaches -Sumatriptan PRN -Discontinue Propanolol 20 IR BID and start topamax 25 QD, with plan for weekly uptitration to a goal 50 BID 6. Obstructive sleep apnea. -CPAP Deep vein thrombosis prophylaxis: heparin [id number] Diet: dash diet VS,Fishbone, I+O VS, Fishbone, I+O Laboratory Tests 06/15/19 05:16 Vital Signs Date Time Temp Pulse Resp B/P (MAP) Pulse Ox O2 Delivery O2 Flow Rate FiO2 06/15/19 04:00 97.9 43 16 140/81 (100) 96 Room Air I&O- Last 24 Hours up to 6 AM 06/15/19 05:59 Intake Total 1260 ml Output Total 1350 ml Balance -90 ml ANGELA SILVA MD Jun 15, 2019 08:33
[2019-06-15 12:00] VITALS: BP 130/70
[2019-06-15] MEDS: TOPIRAMATE (TopAMAX) 25 MG TAB PO SCH (12:55)
[2019-06-15 16:00] VITALS: BP 137/71
[2019-06-15 20:00] VITALS: BP 148/72
[2019-06-15] MEDS: GABAPENTIN 400 MG CAP PO SCH (21:01)
[2019-06-15] MEDS: ROSUVASTATIN 10 MG TAB (CRESTOR) PO SCH (21:01)
[2019-06-15] MEDS: FLUTICASONE PROP 0.05% NASAL SPRAY 16 GM (FLONASE) NARES SCH (21:02)
[2019-06-16] VITALS (7 sets, daily range): BP systolic 130–142; BP diastolic 66–92
[2019-06-16] MEDS: LEVOTHYROXINE 75MCG TABLET (0.075MG) PO SCH (05:18)
[2019-06-16] MEDS: HEPARIN SOD (PORCINE) 5000 UNITS/ML VIAL SC SCH ×3 (05:18→20:23)
[2019-06-16 05:30] LABS: HEMATOCRIT 39.2 % (36.0-47.0); HEMOGLOBIN 12.1 g/dl (12.0-15.5); MEAN CORPUSCULAR HEMOGLOBIN 28.5 pg (27.0-33.0); MEAN CORPUSCULAR HGB CONC 30.9 g/dl (32.0-36.5); MEAN CORPUSCULAR VOLUME 92.2 fl (80.0-96.0); PLATELET COUNT, AUTOMATED 240 10^3/uL (150-450); RED BLOOD COUNT 4.25 10^6/uL (4.00-5.40); WHITE BLOOD COUNT 7.2 10^3/uL (4.0-10.0)
[2019-06-16 05:48] LABS: CALCIUM LEVEL 9.1 MG/DL (8.8-10.2); CREATININE FOR GFR 1.12 MG/DL (0.55-1.30); GLOMERULAR FILTRATION RATE 50.2 (>39); MAGNESIUM LEVEL 2.1 MG/DL (1.8-2.4); POTASSIUM SERUM 4.2 MEQ/L (3.5-5.1)
[2019-06-16] MEDS: oxyBUTYnin *DITROPAN XL* 5 MG TABCR PO SCH (09:01)
[2019-06-16] MEDS: AZELASTINE 137MCG NASAL SPY 30 ML (ASTELIN) SCH ×2 (09:02→20:24)
[2019-06-16] MEDS: VITAMIN D 50,000 UNITS CAPSULE (ERGOCALCIFEROL 1.25MG) PO SCH (09:02)
[2019-06-16] MEDS: TOPIRAMATE (TopAMAX) 25 MG TAB PO SCH (09:02)
[2019-06-16] MEDS: FLECAINIDE 50MG TABLET PO SCH ×2 (09:17→20:23)
--- NOTE | 2019-06-16 12:45 | IPNPDOC ---
Text Note Date of Service The patient was seen on 06/16/19. NOTE Subjective: -Stable PVC load, though improved from time of admission -No complaints this morning Interval events: -DC'd propanolol in the setting of bradycardia and started on topamax for migraine ppx Objective: General Exam: Alert, No Acute Distress Eye Exam: PERRLA, Conjunctiva & lids normal, EOMI, anicteric ENT Exam: Atraumatic, MMM Neck: no JVD or thyromegaly, supple Chest Exam: Clear to auscultation, Normal air movement, no crackles or wheezing Heart Exam: Sinus rhythm with bradycardia and some ectopic beats, Normal S1, Normal S2, no murmurs, rubs Abdomen Exam: Normal bowel sounds, Soft, NTND Extremity Exam: WWP, 2+ DP pulses, no LE edema Skin Exam: WNL turgor and temperature, with no rashes or breakdown Neuro Exam: Normal Speech, cranial Nerves 2-12 WNL, moving all extremities Psych Exam: Mental status NL, Oriented x 3 Labs: Reviewed WBC 7.2 Hgb 12.1 Platelets 240 K 4.2 Mag 2.1 Cr 1.12 Assessment/Plan Ms. Hoyt is a 78 yo woman with a history of hypertension, hyperlipidemia, hypothyroidism, anxiety, who was recently treated for pneumonia in 05/2019 who is now admitted with symptomatic palpitations with frequents PVCs on telemetry without electrolyte disturbances, within normal range thyroid function tests, non ischemic EKG, no evidence of heart failure and no signs of active infection, now switched to flecainide with persisting PVCs and c/b new asymptomatic bradycardia for which I switched her migraine prophylaxis to topamax from propan olol. 1. Presyncope with palpitations and frequent PVCs: -Telemetry -chest x-ray was unrevealing, no other evidence of infection -switched to flecainide by Dr. Amos's recommendation -Bradycardia resolved after stopped propanolol and switching her migraine ppx to topamax 2. Hypertension. Blood pressure was elevated in the emergency room but improved by the time she arrived on the floor. -continue Norvasc 2.5 and propanolol 20 BID, with hold parameters to hold for SBP<100, and to hold propanol for HR<60 -continue DASH diet 3. Hypothyroidism. -Continue home Synthroid 4. Hyperlipidemia. -Continue with Crestor 5. Migraine headaches -Sumatriptan PRN -Continue topamax 25 QD, with plan for weekly uptitration to a goal 50 BID 6. Obstructive sleep apnea. -CPAP Deep vein thrombosis prophylaxis: heparin [id number] Diet: dash diet VS,Fishbone, I+O VS, Fishbone, I+O Laboratory Tests 06/16/19 05:03 Vital Signs Date Time Temp Pulse Resp B/P (MAP) Pulse Ox O2 Delivery O2 Flow Rate FiO2 06/16/19 08:00 97.4 64 16 96 Room Air 06/16/19 04:00 137/79 (98) I&O- Last 24 Hours up to 6 AM 06/16/19 06:00 Intake Total 550 ml Output Total 675 ml Balance -125 ml ANGELA SILVA MD Jun 16, 2019 09:01
[2019-06-16] MEDS: ACETAMINOPHEN TAB 650MG DOSE (2X325MG) PO PRN (18:14)
[2019-06-16] MEDS: ROSUVASTATIN 10 MG TAB (CRESTOR) PO SCH (20:23)
[2019-06-16] MEDS: GABAPENTIN 400 MG CAP PO SCH (20:23)
[2019-06-16] MEDS: FLUTICASONE PROP 0.05% NASAL SPRAY 16 GM (FLONASE) NARES SCH (20:24)
[2019-06-17] VITALS (7 sets, daily range): BP systolic 126–156; BP diastolic 58–92
[2019-06-17] MEDS: LEVOTHYROXINE 75MCG TABLET (0.075MG) PO SCH (05:37)
[2019-06-17] MEDS: HEPARIN SOD (PORCINE) 5000 UNITS/ML VIAL SC SCH ×3 (05:37→20:39)
[2019-06-17 06:56] LABS: HEMATOCRIT 41.5 % (36.0-47.0); HEMOGLOBIN 12.9 g/dl (12.0-15.5); MEAN CORPUSCULAR HEMOGLOBIN 28.5 pg (27.0-33.0); MEAN CORPUSCULAR HGB CONC 31.1 g/dl (32.0-36.5); MEAN CORPUSCULAR VOLUME 91.8 fl (80.0-96.0); PLATELET COUNT, AUTOMATED 250 10^3/uL (150-450); RED BLOOD COUNT 4.52 10^6/uL (4.00-5.40); WHITE BLOOD COUNT 5.8 10^3/uL (4.0-10.0)
[2019-06-17 07:13] LABS: CREATININE FOR GFR 1.07 MG/DL (0.55-1.30); GLOMERULAR FILTRATION RATE 52.9 (>39); MAGNESIUM LEVEL 2.3 MG/DL (1.8-2.4); POTASSIUM SERUM 4.1 MEQ/L (3.5-5.1)
[2019-06-17] MEDS: oxyBUTYnin *DITROPAN XL* 5 MG TABCR PO SCH (08:16)
[2019-06-17] MEDS: AZELASTINE 137MCG NASAL SPY 30 ML (ASTELIN) SCH ×2 (08:16→20:39)
[2019-06-17] MEDS: TOPIRAMATE (TopAMAX) 25 MG TAB PO SCH (08:16)
[2019-06-17] MEDS: FLECAINIDE 50MG TABLET PO SCH ×2 (08:19→20:40)
[2019-06-17] MEDS ORDERED: FLECAINIDE 50MG TABLET PO ONE (10:00)
[2019-06-17] MEDS ORDERED: PILL CUTTER 1 EACH XX PRN (10:30)
[2019-06-17] MEDS: ACETAMINOPHEN TAB 650MG DOSE (2X325MG) PO PRN (10:51)
--- NOTE | 2019-06-17 15:13 | IPNPDOC ---
Text Note Date of Service The patient was seen on 06/17/19. NOTE Subjective: Patient was seen and examined at the bedside. Patient reports that she soak begin Cipro experience palpitations upon ambulation. She denies any chest pain, shortness of breath, nausea or vomiting. Denies any abdominal pain, diarrhea, or urinary discomfort. Patient has worked physical therapy and was cleared for discharge yesterday. Objective: Vitals (See below) General: Lying in bed, no acute distress, comfortable, AAOx3 HEENT: NC, AT CVS: +S1S2, irregular rhythm - multiple PVCs on telemetry Lungs: Fair air entry b/l, -w/r/r Abdomen: Soft, ND, NT Extremities: - Edema, - Calf tenderness Assessment and plan: Ms. Hoyt is a 78 yo woman with a history of hypertension, hyperlipidemia, hypothyroidism, anxiety, who was recently treated for pneumonia in 05/2019 who is now admitted with symptomatic palpitations with frequents PVCs on telemetry without electrolyte disturbances, within normal range thyroid function tests, non ischemic EKG, no evidence of heart failure and no signs of active infection, now switched to flecainide with persisting PVCs and c/b new asymptomatic bradycardia for which her migraine prophylaxis was switched from propranolol to topamax Presyncope with palpitations and frequent PVCs: - Clinically patient has reported palpitations that continue to occur. However, she denies any shortness of breath or dizziness - CXR 06/12: No acute cardiopulmonary process. - s/p Propranolol (re: Bradycardia) - c/w Flecainide; discussed with cardiology today and dose of flecainide has been increased - Dr. Amos, Cardiology on consultation; appreciate their input HTN - BP remains well controlled - c/w Amlodipine - s/p Propranolol (re: Bradycardia) - c/w DASH / 2g sodium diet Hypothyroidism - c/w Levothyroxine DLP - c/w Rosuvastatin Migraine headaches - c/w Sumatriptan PRN; s/p Propranolol - c/w Topamax 25 QD, with plan for weekly up titration to a goal 50 BID CHATA on CPAP - c/w inpatient CPAP use GI prophylaxis - c/w DVT prophylaxis - c/w Heparin Disposition: - Anticipate discharge within the next 24-48 hours once palpitations resolved VS,Fishbone, I+O VS, Fishbone, I+O Laboratory Tests 06/17/19 05:56 Vital Signs Date Time Temp Pulse Resp B/P (MAP) Pulse Ox O2 Delivery O2 Flow Rate FiO2 06/17/19 12:00 97.8 58 20 147/77 (100) 95 Room Air I&O- Last 24 Hours up to 6 AM 06/17/19 06:00 Intake Total 840 ml Output Total 1700 ml Balance -860 ml AIXA MICHAEL MD Jun 17, 2019 15:13
[2019-06-17] MEDS ORDERED: MECLIZINE 25 MG TABLET PO PRN (16:00)
[2019-06-17] MEDS: ROSUVASTATIN 10 MG TAB (CRESTOR) PO SCH (20:39)
[2019-06-17] MEDS: GABAPENTIN 400 MG CAP PO SCH (20:39)
[2019-06-17] MEDS: FLUTICASONE PROP 0.05% NASAL SPRAY 16 GM (FLONASE) NARES SCH (20:39)
[2019-06-18] VITALS: BP 121/68
[2019-06-18 04:00] VITALS: BP 126/77
[2019-06-18] MEDS: HEPARIN SOD (PORCINE) 5000 UNITS/ML VIAL SC SCH ×3 (04:50→21:12)
[2019-06-18] MEDS: LEVOTHYROXINE 75MCG TABLET (0.075MG) PO SCH (04:50)
[2019-06-18 07:36] LABS: BASO % 0.5 % (0.0-1.0); EOS # 0.1 10^3/uL (0.0-0.5); EOS % 1.1 % (0.0-3.0); HEMATOCRIT 41.5 % (36.0-47.0); HEMOGLOBIN 13.2 g/dl (12.0-15.5); LYMPH # 1.2 10^3/uL (1.5-5.0); LYMPH % 21.6 % (24.0-44.0); MEAN CORPUSCULAR HEMOGLOBIN 28.9 pg (27.0-33.0); MEAN CORPUSCULAR HGB CONC 31.8 g/dl (32.0-36.5); MEAN CORPUSCULAR VOLUME 90.8 fl (80.0-96.0); MONO # 0.6 10^3/uL (0.0-0.8); MONO % 10.9 % (0.0-5.0); NEUTROPHILS # 3.7 10^3/uL (1.5-8.5); NEUTROPHILS % 65.4 % (36.0-66.0); PLATELET COUNT, AUTOMATED 259 10^3/uL (150-450); RED BLOOD COUNT 4.57 10^6/uL (4.00-5.40); WHITE BLOOD COUNT 5.6 10^3/uL (4.0-10.0)
[2019-06-18 07:58] LABS: CALCIUM LEVEL 8.8 MG/DL (8.8-10.2); CREATININE FOR GFR 1.17 MG/DL (0.55-1.30); GLOMERULAR FILTRATION RATE 47.7 (>39); MAGNESIUM LEVEL 2.2 MG/DL (1.8-2.4)
[2019-06-18 08:00] VITALS: BP 135/63
[2019-06-18] MEDS: TOPIRAMATE (TopAMAX) 25 MG TAB PO SCH (08:35)
[2019-06-18] MEDS: oxyBUTYnin *DITROPAN XL* 5 MG TABCR PO SCH (08:38)
[2019-06-18] MEDS: FLECAINIDE 50MG TABLET PO SCH ×2 (08:44→21:12)
[2019-06-18] MEDS: AZELASTINE 137MCG NASAL SPY 30 ML (ASTELIN) SCH ×2 (08:47→21:11)
[2019-06-18 12:00] VITALS: BP 128/76
--- NOTE | 2019-06-18 14:06 | IPNPDOC ---
Text Note Date of Service The patient was seen on 06/18/19. NOTE Subjective: Patient was seen and examined at the bedside. Yesterday. Patient has reported experiencing vertigo. , She started on meclizine with minor improvement. Case was discussed with Dr. Arnold, current plan is to reduce dose of flecainide and consider discharge tomorrow if patient is asymptomatic. Patient denies any active chest pain, shortness of breath or cough. . She does report some palpitations. Objective: Vitals (See below) General: Lying in bed, no acute distress, comfortable, AAOx3 HEENT: NC, AT CVS: +S1S2, irregular rhythm - multiple PVCs on telemetry Lungs: Fair air entry b/l, auscultations without any rhonchi, rales or wheezing Abdomen: Soft, abdomen remains nondistended, nontender Extremities: No evidence of lower extremity edema, - Calf tenderness Assessment and plan: Ms. Hoyt is a 78 yo woman with a history of hypertension, hyperlipidemia, hypothyroidism, anxiety, who was recently treated for pneumonia in 05/2019 who is now admitted with symptomatic palpitations with frequents PVCs on telemetry without electrolyte disturbances, within normal range thyroid function tests, non ischemic EKG, no evidence of heart failure and no signs of active infection, now switched to flecainide with persisting PVCs and c/b new asymptomatic bradycardia for which her migraine prophylaxis was switched from propranolol to topamax Presyncope with palpitations and frequent PVCs: - Clinically patient has reported palpitations that continue to occur. However, she denies any shortness of breath or dizziness - CXR 06/12: No acute cardiopulmonary process. - s/p Propranolol (re: Bradycardia) - c/w Flecainide; discussed with cardiology today and will reduce dose of Flecainide to 50 BID - Anticipate the patient will require outpatient cardiology follow-up for possible evaluation for ablation - Dr. Amos, Cardiology on consultation; appreciate their input HTN - BP remains well controlled - c/w Amlodipine - s/p Propranolol (re: Bradycardia) - c/w DASH / 2g sodium diet Hypothyroidism - c/w Levothyroxine DLP - c/w Rosuvastatin Migraine headaches - c/w Sumatriptan PRN; s/p Propranolol - c/w Topamax 25 QD, with plan for weekly up titration to a goal 50 BID CHATA on CPAP - c/w inpatient CPAP use GI prophylaxis - c/w DVT prophylaxis - c/w Heparin Disposition: - Anticipate discharge within the tomorrow Rupali VIEIRA, I+O Rupali VIEIRA I+O Laboratory Tests 06/18/19 07:22 Vital Signs Date Time Temp Pulse Resp B/P (MAP) Pulse Ox O2 Delivery O2 Flow Rate FiO2 06/18/19 12:00 97.2 54 20 128/76 (93) 97 Room Air I&O- Last 24 Hours up to 6 AM 06/18/19 06:00 Intake Total 1646 ml Output Total 950 ml Balance 696 ml AIXA MICHAEL MD Jun 18, 2019 14:05
[2019-06-18 16:00] VITALS: BP 118/70
[2019-06-18 20:00] VITALS: BP 140/64
[2019-06-18] MEDS: ROSUVASTATIN 10 MG TAB (CRESTOR) PO SCH (21:11)
[2019-06-18] MEDS: FLUTICASONE PROP 0.05% NASAL SPRAY 16 GM (FLONASE) NARES SCH (21:11)
[2019-06-18] MEDS: GABAPENTIN 400 MG CAP PO SCH (21:12)
[2019-06-19] VITALS: BP 139/76
[2019-06-19 04:00] VITALS: BP 124/68
[2019-06-19] MEDS: HEPARIN SOD (PORCINE) 5000 UNITS/ML VIAL SC SCH (05:13)
[2019-06-19] MEDS: LEVOTHYROXINE 75MCG TABLET (0.075MG) PO SCH (05:13)
[2019-06-19 08:00] VITALS: BP 124/76
[2019-06-19] MEDS ORDERED: TOPA1TAB PO (08:19)
[2019-06-19] MEDS ORDERED: FLEC25TA PO (08:19)
[2019-06-19] MEDS: FLECAINIDE 50MG TABLET PO SCH (09:28)
[2019-06-19] MEDS: VITAMIN D 50,000 UNITS CAPSULE (ERGOCALCIFEROL 1.25MG) PO SCH (09:28)
[2019-06-19] MEDS: AZELASTINE 137MCG NASAL SPY 30 ML (ASTELIN) SCH (09:29)
[2019-06-19] MEDS: oxyBUTYnin *DITROPAN XL* 5 MG TABCR PO SCH (09:29)
[2019-06-19] MEDS: TOPIRAMATE (TopAMAX) 25 MG TAB PO SCH (09:29)
--- NOTE | 2019-06-19 10:16 | DS.PDOC ---
Discharge Summary General Date of Admission Jun 12, 2019 at 14:43 Date of Discharge 06/17/2019 Discharge Summary PROCEDURES PERFORMED DURING STAY: [None]. ADMITTING DIAGNOSES / DISCHARGE DIAGNOSES: Presyncope with palpitations and frequent PVCs: s/p Vertigo - possible 2/2 medications HTN Hypothyroidism DLP Migraine headaches CHATA on CPAP DVT prophylaxis COMPLICATIONS/CHIEF COMPLAINT: Palpitations HISTORY OF PRESENT ILLNESS: Ms. Hoyt is a 78 yo woman with a history of hypertension, hyperlipidemia, hypothyroidism, anxiety, who was recently treated for pneumonia in 05/2019 who is now admitted with symptomatic palpitations with frequents PVCs on telemetry without electrolyte disturbances, within normal range thyroid function tests, non ischemic EKG, no evidence of heart failure and no signs of active infection, now switched to flecainide with persisting PVCs and c/b new asymptomatic bradycardia for which her migraine prophylaxis was switched from propranolol to topamax HOSPITAL COURSE: Presyncope with palpitations and frequent PVCs: - Clinically patient has reported palpitations that continue to occur. However, she denies any shortness of breath or dizziness - She does report the frequency of palpitations. Has improved - CXR 06/12: No acute cardiopulmonary process. - s/p Propranolol (re: Bradycardia) - c/w Flecainide; discussed with cardiology today and will reduce dose of Flecainide to 50 BID - will continue with current dose - Patient follows with Dr. Amos as an outpatient and will have outpatient follow-up for discussion of possible ablation s/p Vertigo - possible 2/2 medications - Has resolved with reduced dose of Flecainide - s/p Meclizine HTN - BP remains well controlled - c/w Amlodipine - s/p Propranolol (re: Bradycardia) - c/w DASH / 2g sodium diet Hypothyroidism - c/w Levothyroxine DLP - c/w Rosuvastatin Migraine headaches - c/w Sumatriptan PRN; s/p Propranolol - c/w Topamax 25 QD, with plan for weekly up titration to a goal 50 BID CHATA on CPAP - c/w inpatient CPAP use DVT prophylaxis - c/w Heparin DISCHARGE MEDICATIONS: Please see below. ALLERGIES: Please see below. PHYSICAL EXAMINATION ON DISCHARGE: Vitals (See below) General: Lying in bed, no acute distress, comfortable, AAOx3 HEENT: NC, AT CVS: +S1S2, Lungs: Fair air entry b/l, there does not appear to be any evidence of rhonchi, wheezing or crackles upon auscultation Abdomen: Abdomen remains soft, without any distention or tenderness Extremities: Lower extremities are free of any edema, - Calf tenderness LABORATORY DATA: Please see below. ACTIVITY: [As tolerated]. DISCHARGE PLAN: Follow-up with Estee Montgomery and Dr. Amos within 7 days Remain compliant with treatment plan and medications Return to the ER if you experience any problems DISPOSITION: Home DISCHARGE CONDITION: [Stable]. TIME SPENT ON DISCHARGE: 40 minutes Vital Signs/I&Os Vital Signs Date Time Temp Pulse Resp B/P (MAP) Pulse Ox O2 Delivery O2 Flow Rate FiO2 06/19/19 08:00 97.2 75 16 124/76 (92) 98 Room Air I&O- Last 24 Hours up to 6 AM 06/19/19 06:00 Intake Total 1320 ml Output Total 1300 ml Balance 20 ml Laboratory Data Labs 24H Laboratory Tests 2 06/19/19 04:55: Discharge Medications Scheduled Amlodipine Besylate (Amlodipine Besylate) 2.5 Mg Tab, 2.5 MG PO DAILY, (Reported) Azelastine HCl (Azelastine HCl) 0.1% [place].pump, 2 SPRAY NARES BID, (Reported) Ergocalciferol (Vitamin D2) (Vitamin D2) 50,000 Units Cap, 50,000 UNIT PO 2XW, (Reported) SUNDAY AND SUNDAY Flecainide Acetate (Flecainide Acetate) 50 Mg Tablet, 50 MG PO BID Fluticasone Furoate (Flonase Sensimist) 5.9 Ml [place].susp, 2 PUFF NARES QHS, (Reported) Gabapentin (Gabapentin) 800 Mg Tablet, 800 MG PO QHS, (Reported) L. Rhamnosus GG/Inulin (Culturelle Capsule) 1 Each Cap.sprink, 1 CAP PO DAILY, (Reported) Levothyroxine Sodium (Levothyroxine Sodium) 75 Mcg Tab, 75 MCG PO DAILY, (Reported) Methenamine Mandelate (Methenamine Mandelate) 1 Gm Tablet, 1 GM PO DAILY, (Reported) Oxybutynin Chloride (Ditropan Xl) 10 Mg Tab.er.24, 10 MG PO DAILY, (Reported) Rosuvastatin Calcium (Crestor) 40 Mg Tab, 40 MG PO QHS, (Reported) Topiramate (Topamax) 25 Mg Tablet, 25 MG PO DAILY Zoledronic Acid/Mannitol-Water (Reclast 5 mg/100 ml Solution) 5 Mg/100 Ml Pggybk.btl, 5 MG IV ASDIRECTED, (Reported) ONCE A YEAR Scheduled PRN Acetaminophen (Tylenol) 325 Mg Tablet, 650 MG PO TID PRN for PAIN, (Reported) Albuterol Sulfate (Proair Hfa) 108 Mcg/Act Aer, 2 PUFF INH QID PRN for SHORTNESS OF BREATH, (Reported) Eletriptan Hydrobromide (Relpax) 40 Mg Tablet, 40 MG PO DAILY PRN for MIGRAINE, (Reported) Ondansetron HCl (Zofran) 4 Mg Tablet, 4 MG PO Q6H PRN for NAUSEA OR VOMITING, (Reported) Allergies Coded Allergies: ENVIROMENTAL (Verified Allergy, Mild, 06/02/19) Sulfa (Sulfonamide Antibiotics) (Verified Allergy, Unknown, rash, N/V, 06/02/19) venlafaxine (Verified Allergy, Unknown, Nausea, rash, 06/02/19) AIXA MICHAEL MD Jun 19, 2019 10:16
== END 2019-06-19 11:20 | disposition home or self-care (01) | DRG 312 ==
LOC: M ED 12:01 → M ED INP 14:43 → M PCU 15:46
PROVIDERS: ADMIT Internal Medicine; ATTEND Internal Medicine
DX: R55 Syncope and collapse (principal); R42 Dizziness and giddiness; G47.33 Obstructive sleep apnea (adult) (pediatric); E03.9 Hypothyroidism, unspecified; G43.909 Migraine, unspecified, not intractable, without status migrainosus; I10 Essential (primary) hypertension; I49.3 Ventricular premature depolarization; E78.5 Hyperlipidemia, unspecified; F41.9 Anxiety disorder, unspecified; Z79.899 Other long term (current) drug therapy; Z88.2 Allergy status to sulfonamides; Z88.8 Allergy status to other drugs, medicaments and biological substances; Z96.642 Presence of left artificial hip joint

== ENCOUNTER 2019-08-15 14:30 | Emergency (ER) | payer MEDICARE, BC, OTHER ==
[~2019-08-15] VITALS: Ht 154.9 cm; Wt 67.9 kg
[~2019-08-15 14:30] MED LIST changes: +FLEC25TA PO; +GABA800T4 PO; -OXYB10TA2 PO; +OXYB10TA23 PO; +TOPA1TAB PO; +VITA50005 PO
[2019-08-15 15:33] LABS: BASO % 0.4 % (0.0-1.0); EOS # 0.1 10^3/uL (0.0-0.5); HEMATOCRIT 41.8 % (36.0-47.0); HEMOGLOBIN 13.5 g/dl (12.0-15.5); LYMPH % 15.4 % (24.0-44.0); MEAN CORPUSCULAR HEMOGLOBIN 28.6 pg (27.0-33.0); MEAN CORPUSCULAR HGB CONC 32.3 g/dl (32.0-36.5); MEAN CORPUSCULAR VOLUME 88.6 fl (80.0-96.0); MONO # 0.7 10^3/uL (0.0-0.8); MONO % 10.9 % (0.0-5.0); NEUTROPHILS # 4.9 10^3/uL (1.5-8.5); NEUTROPHILS % 71.9 % (36.0-66.0); PLATELET COUNT, AUTOMATED 254 10^3/uL (150-450); RED BLOOD COUNT 4.72 10^6/uL (4.00-5.40); WHITE BLOOD COUNT 6.8 10^3/uL (4.0-10.0)
[2019-08-15 15:45] LABS: INR 1.01
[2019-08-15 16:10] LABS: ALBUMIN 3.6 GM/DL (3.2-5.2); ALT/SGPT 16 U/L (12-78); BILIRUBIN,DIRECT < 0.1 MG/DL (0.0-0.2); BILIRUBIN,TOTAL 0.5 MG/DL (0.2-1.0); BLOOD UREA NITROGEN 13 MG/DL (7-18); CARBON DIOXIDE LEVEL 28 MEQ/L (21-32); CHLORIDE LEVEL 106 MEQ/L (98-107); CK-MB VALUE MASS < 1.0 NG/ML (<3.6); CPK CREATINE PHOSPHOKINASE 33 U/L (26-192); CREATININE FOR GFR 0.89 MG/DL (0.55-1.30); GLOMERULAR FILTRATION RATE > 60.0 (>39); GLUCOSE, FASTING 97 MG/DL (70-100); LIPASE 169 U/L (73-393); MB/CK RELATIVE INDEX 3.03 (< OR =4); NT-PRO BNP 227 PG/ML (<450); POTASSIUM SERUM 4.2 MEQ/L (3.5-5.1); SODIUM LEVEL 141 MEQ/L (136-145); TOTAL PROTEIN 6.7 GM/DL (6.4-8.2); TROPONIN I 0.03 NG/ML (< 0.10)
--- NOTE | 2019-08-15 16:17 | REP ---
Portable chest x-ray: Single view. History: Chest pain. Comparison chest x-ray: June 12, 2019. Findings: There is a large hiatal hernia behind the heart. Monitoring electrodes are seen. Heart is not felt to be enlarged. Pleural angles are sharp. No definite infiltrate is seen. There is mild plate-like atelectasis on the left. Impression: Mild plate-like atelectasis left base. Large hiatal hernia. Otherwise no acute disease. Electronically Signed by Jostin Perdomo MD 08/15/2019 04:28 P
--- NOTE | 2019-08-15 16:18 | REP ---
Clinical: Status post right groin catheterization with continued pain. Technique: Real time narayanan scale and color Doppler evaluation using linear high frequency transducer. Findings: A small fluid collection in the underlying subcutaneous tissue measuring 27 x 4 x 18 mm may represent a small residual and resolving hematoma in relation to prior catheterization. The common femoral vein, common femoral artery, profunda, and proximal portions of the superficial femoral artery are all normal in appearance. There is no evidence for vascular abnormality or anomaly. No aneurysm or pseudoaneurysm identified. Impression: 1. Very small collection in the subcutaneous tissue may represent resolving hematoma or resorbing fluid related to prior catheterization. 2. No evidence for underlying vascular abnormality. No aneurysm or pseudoaneurysm. Electronically Signed by Cale Gonzalez MD 08/15/2019 04:10 P
[2019-08-15 16:50] VITALS: BP 141/82
--- NOTE | 2019-08-15 18:16 | ECGEPIP ---
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
== END 2019-08-15 17:10 | disposition home or self-care (01) ==
LOC: M ED 14:30
DX: I49.3 Ventricular premature depolarization (principal); L76.32 Postprocedural hematoma of skin and subcutaneous tissue following other procedure; I48.91 Unspecified atrial fibrillation; I10 Essential (primary) hypertension; G47.33 Obstructive sleep apnea (adult) (pediatric); E07.9 Disorder of thyroid, unspecified; G43.909 Migraine, unspecified, not intractable, without status migrainosus; Z87.891 Personal history of nicotine dependence; Z98.890 Other specified postprocedural states; Z88.2 Allergy status to sulfonamides; Z88.8 Allergy status to other drugs, medicaments and biological substances; J30.1 Allergic rhinitis due to pollen; Z79.899 Other long term (current) drug therapy; Z79.4 Long term (current) use of insulin

== ENCOUNTER 2019-08-22 09:53 | Emergency (ER) | payer MEDICARE, BC, OTHER ==
[~2019-08-22] VITALS: Ht 154.9 cm; Wt 65.9 kg
[2019-08-22] MEDS ORDERED: NS 1,000 ML IV SCH (10:18)
[2019-08-22] MEDS ORDERED: ONDANSETRON 4MG/2ML VIAL (J2405) IV ONE (11:15)
[2019-08-22] MEDS ORDERED: ISOVUE-370 76% 100ML VIAL (Q9967) As Ordered ONE (11:16)
[2019-08-22] MEDS: MORPHINE 4 MG/ML 1ML VIAL/SYRINGE (J2270) IV PRN ×2 (11:18→13:03)
--- NOTE | 2019-08-22 11:54 | REP ---
Clinical: Generalized abdominal pain. Technique: Axial contrast enhanced images from the lung bases to the pubic symphysis using 100 ml Isovue 370 intravenous contrast material with coronal and sagittal re-formations. Comparison: 12/11/2018. Findings: Diverticulosis is noted and there is a single diverticulum at the proximal sigmoid colon which demonstrates increased enhancement and adjacent stranding suggesting early/mild sigmoid diverticulitis (images 90 - 99). No evidence for bowel obstruction. No free air. No free fluid or drainable collection/abscess. Small bowel is unremarkable and without obstruction. Moderate paraesophageal gastric hiatal hernia noted. Liver, spleen, pancreas, bilateral adrenal glands and kidneys are normal. Evidence of prior cholecystectomy. Pelvis demonstrates relatively normal bladder and evidence for prior hysterectomy. No ascites. No free air. No adenopathy. Abdominal aorta demonstrates atherosclerotic changes without aneurysm or dissection. Musculoskeletal structures demonstrate chronic scoliosis and degenerative changes. Lung bases are clear. Impression: 1. Early/mild proximal sigmoid diverticulitis. No evidence for obstruction, perforation, or drainable collection/abscess. 2. Moderate paraesophageal gastric hiatal hernia. Electronically Signed by Cale Gonzalez MD 08/22/2019 11:46 A
[2019-08-22] MEDS ORDERED: AUGMENTIN 875 MG TAB PO ONE (12:00)
[2019-08-22 13:37] LABS: BASO % 0.3 % (0.0-1.0); EOS # 0.1 10^3/uL (0.0-0.5); EOS % 0.8 % (0.0-3.0); HEMATOCRIT 41.6 % (36.0-47.0); HEMOGLOBIN 13.4 g/dl (12.0-15.5); LYMPH # 1.3 10^3/uL (1.5-5.0); LYMPH % 21.4 % (24.0-44.0); MEAN CORPUSCULAR HGB CONC 32.2 g/dl (32.0-36.5); MONO # 0.6 10^3/uL (0.0-0.8); MONO % 10.7 % (0.0-5.0); NEUTROPHILS # 3.9 10^3/uL (1.5-8.5); NEUTROPHILS % 66.1 % (36.0-66.0); PLATELET COUNT, AUTOMATED 266 10^3/uL (150-450); RED BLOOD COUNT 4.62 10^6/uL (4.00-5.40); WHITE BLOOD COUNT 5.9 10^3/uL (4.0-10.0)
[2019-08-22 13:47] LABS: INR 1.04; PROTHROMBIN TIME 13.3 SECONDS (11.8-14.0)
[2019-08-22 14:01] LABS: ALBUMIN 3.6 GM/DL (3.2-5.2); ALT/SGPT 16 U/L (12-78); BILIRUBIN,DIRECT 0.2 MG/DL (0.0-0.2); BILIRUBIN,TOTAL 0.7 MG/DL (0.2-1.0); BLOOD UREA NITROGEN 12 MG/DL (7-18); CALCIUM LEVEL 9.2 MG/DL (8.8-10.2); CARBON DIOXIDE LEVEL 30 MEQ/L (21-32); CHLORIDE LEVEL 107 MEQ/L (98-107); GLOMERULAR FILTRATION RATE > 60.0 (>39); GLUCOSE, FASTING 87 MG/DL (70-100); LIPASE 127 U/L (73-393); POTASSIUM SERUM 4.5 MEQ/L (3.5-5.1); SODIUM LEVEL 140 MEQ/L (136-145); TOTAL PROTEIN 6.8 GM/DL (6.4-8.2)
[2019-08-22] MEDS ORDERED: AUGM875T28 PO (14:04)
[2019-08-22 14:20] VITALS: BP 146/78
== END 2019-08-22 14:21 | disposition home or self-care (01) ==
LOC: M ED 09:53
DX: K57.92 Diverticulitis of intestine, part unspecified, without perforation or abscess without bleeding (principal); I48.91 Unspecified atrial fibrillation; E07.9 Disorder of thyroid, unspecified; G47.33 Obstructive sleep apnea (adult) (pediatric); G43.909 Migraine, unspecified, not intractable, without status migrainosus; Z99.89 Dependence on other enabling machines and devices; Z79.899 Other long term (current) drug therapy; Z79.890 Hormone replacement therapy; Z88.1 Allergy status to other antibiotic agents; Z88.2 Allergy status to sulfonamides; Z88.8 Allergy status to other drugs, medicaments and biological substances; J30.89 Other allergic rhinitis; Z87.891 Personal history of nicotine dependence
CPT/HCPCS: 36415; 74177; 80047; 80048; 80076; 81001; 83690; 85025; 85610; 86850; 86900; 86901; 87040; 87086; 93041; 96361; 96374; 96375; 96376; 99285; G0463; J2270; J2405; Q9967

== ENCOUNTER → 2020-01-30 | Outpatient (REF) | payer MEDICARE, BC, OTHER ==
[~2020-01-30] MED LIST changes: -ASPI81TA85 PO; +ASPI81TA86 PO; +AUGM875T28 PO; +CYCL-707 PO; -CYCL10TA PO
== END ==
LOC: M LAB REF 10:24
PROVIDERS: ATTEND Physician Assistant Medical
DX: Z01.818 Encounter for other preprocedural examination (principal); Z11.59 Encounter for screening for other viral diseases; Z20.828 Contact with and (suspected) exposure to other viral communicable diseases

== ENCOUNTER 2020-02-08 07:20 | Inpatient (IN) | payer MEDICARE, BC, OTHER ==
[2020-02-08] MEDS ORDERED: ISOVUE-370 76% 100ML VIAL As Ordered ONE (10:00)
[2020-02-08] MEDS ORDERED: MORPHINE 2 MG/ML 1ML VIAL (J2270) ONE ×2 (10:46→15:32)
[2020-02-08] MEDS ORDERED: FUROSEMIDE 20MG/2ML VIAL (J1940) ONE (15:32)
[2020-02-09] MEDS ORDERED: ONDANSETRON 4 MG ORAL DISINTEGRATING TAB As Ordered ONE (01:17)
[2020-02-09] MEDS ORDERED: PANTOPRAZOLE 40MG TAB (PROTONIX) As Ordered ONE (08:10)
[2020-02-09] MEDS ORDERED: ENOXAPARIN 40MG/0.4ML SYRINGE (J1650 PER 10MG) As Ordered ONE (08:10)
[2020-02-09] MEDS ORDERED: ASPIRIN 81 MG ENTERIC TAB As Ordered ONE (08:10)
[2020-02-09] MEDS ORDERED: FUROSEMIDE 20MG/2ML VIAL (J1940) As Ordered ONE (08:10)
[2020-02-09] MEDS ORDERED: METOPROLOL TART 25 MG TABLET As Ordered ONE ×2 (10:11→10:21)
[2020-02-09] MEDS ORDERED: ISOSORBIDE MON. (IMDUR) 30 MG XR TAB As Ordered ONE (12:00)
[2020-02-09] MEDS ORDERED: aMILoride 5 MG TAB ONE (16:39)
[2020-02-09] MEDS ORDERED: INDOMETHACIN 25 MG CAP ONE (16:39)
[2020-02-09] MEDS ORDERED: COLCHICINE 0.6 MG TAB ONE (16:39)
[2020-02-09] MEDS ORDERED: LANSOPRAZOLE SUSPENSION 30 MG/10 ML ORAL SYRINGE (FIRST-LANSOPRAZOLE) ONE (16:39)
--- NOTE | 2020-03-18 10:34 | ECGEPIP ---
SUPRAVENTRICULAR RHYTHM ATYPICAL ECG PRWP LOW VOLTAGE NONSPECIFIC ST & T-WAVE ABNORMALITY MTDD
--- NOTE | 2020-03-18 10:59 | ECGEPIP ---
SINUS BRADYCARDIA WITH OCCASIONAL SUPRAVENTRICULAR PREMATURE COMPLEXES BORDERLINE ECG NONSPECIFIC ST & T-WAVE ABNORMALITY SEE SCANNED DOWNTIME REPORT MTDD
--- NOTE | 2020-03-18 15:51 | ECGEPIP ---
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
--- NOTE | 2020-03-24 13:28 | ECGEPIP ---
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
[2020-03-25 08:29] LABS: INR 1.04; PARTIAL THROMBOPLASTIN TIME 44.9 SECONDS (24.2-38.5); PROTHROMBIN TIME 13.9 SECONDS (12.5-14.3)
[2020-03-25 08:34] LABS: APPEARANCE, URINE CLEAR (CLEAR); BACTERIA, URINE AUTO NEGATIVE (NEGATIVE); BILIRUBIN, URINE AUTO NEGATIVE (NEGATIVE); BLOOD, URINE BLOOD NEGATIVE (NEGATIVE); COLOR, URINE YELLOW (YELLOW); GLUCOSE, URINE (UA) AUTO NEGATIVE (NEGATIVE); KETONE, URINE AUTO NEGATIVE (NEGATIVE); LEUKOCYTE ESTERASE, URINE AUTO NEGATIVE (NEGATIVE); MUCUS, URINE SMALL (NEGATIVE); NITRITE, URINE AUTO NEGATIVE (NEGATIVE); PROTEIN, URINE AUTO NEGATIVE (NEGATIVE); RBC, URINE AUTO 1 /HPF (0-3); SPECIFIC GRAVITY URINE AUTO 1.014 (1.002-1.035); SQUAMOUS EPITHELIAL CELL UR AU 0 /HPF (0-6); UROBILINOGEN, URINE AUTO 0.2 mg/dL (0.0-2.0); WBC, URINE AUTO 1 /HPF (0-3)
[2020-03-25 18:37] LABS: BASO % 0.2 % (0.0-1.0); EOS # 0.1 10^3/uL (0.0-0.5); EOS % 1.1 % (0.0-3.0); HEMATOCRIT 34.8 % (36.0-47.0); HEMOGLOBIN 11.3 g/dl (12.0-15.5); MEAN CORPUSCULAR HEMOGLOBIN 30.4 pg (27.0-33.0); MEAN CORPUSCULAR HGB CONC 32.5 g/dl (32.0-36.5); MEAN CORPUSCULAR VOLUME 93.5 fl (80.0-96.0); MONO # 0.9 10^3/uL (0.0-0.8); NEUTROPHILS # 6.6 10^3/uL (1.5-8.5); NEUTROPHILS % 75.6 % (36.0-66.0); PLATELET COUNT, AUTOMATED 263 10^3/uL (150-450); RED BLOOD COUNT 3.72 10^6/uL (4.00-5.40); WHITE BLOOD COUNT 8.7 10^3/uL (4.0-10.0)
[2020-03-31 09:02] LABS: HEMATOCRIT 34.3 % (36.0-47.0); HEMOGLOBIN 11.2 g/dl (12.0-15.5); MEAN CORPUSCULAR HEMOGLOBIN 30.4 pg (27.0-33.0); MEAN CORPUSCULAR HGB CONC 32.7 g/dl (32.0-36.5); PLATELET COUNT, AUTOMATED 255 10^3/uL (150-450); RED BLOOD COUNT 3.69 10^6/uL (4.00-5.40)
[2020-04-05 22:51] LABS: FREE T3 2.5 PG/ML (2.2-4.0); FREE T4 1.19 NG/DL (0.76-1.46); THYROID STIMULATING HORMONE 6.94 uIU/ML (0.358-3.740); TOTAL T3 82.7 NG/DL (60.0-181.0)
[2020-04-25 02:50] LABS: ALBUMIN 3.1 GM/DL (3.2-5.2); BILIRUBIN,TOTAL 0.5 MG/DL (0.2-1.0); C REACTIVE PROTEIN QUANTITATIV 12.9 MG/DL (0.00-0.30); CALCIUM LEVEL 8.5 MG/DL (8.8-10.2); CK-MB VALUE MASS 1.5 NG/ML (<3.6); CREATININE FOR GFR 1.23 MG/DL (0.55-1.30); MAGNESIUM LEVEL 2.2 MG/DL (1.8-2.4); MB/CK RELATIVE INDEX 1.36 (< OR =4); POTASSIUM SERUM 3.9 MEQ/L (3.5-5.1); THYROID STIMULATING HORMONE 9.77 uIU/ML (0.358-3.740); TOTAL PROTEIN 6.1 GM/DL (6.4-8.2); TROPONIN I 0.97 NG/ML (< 0.10)
[2020-04-25 02:52] LABS: CK-MB VALUE MASS 1.4 NG/ML (<3.6); MB/CK RELATIVE INDEX 1.56 (< OR =4); TROPONIN I 0.79 NG/ML (< 0.10)
[2020-05-04 04:11] LABS: CALCIUM LEVEL 8.3 MG/DL (8.8-10.2); CREATININE FOR GFR 1.2 MG/DL (0.55-1.30); FREE T3 2.5 PG/ML (2.2-4.0); FREE T4 1.19 NG/DL (0.76-1.46); GLOMERULAR FILTRATION RATE 46.3 (>39); THYROID STIMULATING HORMONE 6.94 uIU/ML (0.358-3.740); TOTAL T3 82.7 NG/DL (60.0-181.0)
== END 2020-02-09 16:40 | disposition home or self-care (01) | DRG 316 ==
LOC: M ED 07:20 → M PCU 12:00
PROVIDERS: ADMIT Internal Medicine; ATTEND Internal Medicine
DX: I30.9 Acute pericarditis, unspecified (principal); I11.0 Hypertensive heart disease with heart failure; K57.30 Diverticulosis of large intestine without perforation or abscess without bleeding; I50.9 Heart failure, unspecified; E03.9 Hypothyroidism, unspecified; I25.10 Atherosclerotic heart disease of native coronary artery without angina pectoris; Z79.899 Other long term (current) drug therapy; I31.9 Disease of pericardium, unspecified

== ENCOUNTER → 2020-03-25 | Outpatient (CLI) | payer MEDICARE, BC, OTHER ==
[2020-03-25 13:25] LABS: APPEARANCE, URINE CLEAR (CLEAR); BACTERIA, URINE AUTO NEGATIVE (NEGATIVE); BILIRUBIN, URINE AUTO NEGATIVE (NEGATIVE); BLOOD, URINE BLOOD NEGATIVE (NEGATIVE); COLOR, URINE YELLOW (YELLOW); GLUCOSE, URINE (UA) AUTO NEGATIVE (NEGATIVE); KETONE, URINE AUTO NEGATIVE (NEGATIVE); LEUKOCYTE ESTERASE, URINE AUTO 1+ (NEGATIVE); NITRITE, URINE AUTO NEGATIVE (NEGATIVE); PROTEIN, URINE AUTO NEGATIVE (NEGATIVE); RBC, URINE AUTO 2 /HPF (0-3); SPECIFIC GRAVITY URINE AUTO 1.013 (1.002-1.035); SQUAMOUS EPITHELIAL CELL UR AU 5 /HPF (0-6); UROBILINOGEN, URINE AUTO 0.2 mg/dL (0.0-2.0); WBC, URINE AUTO 14 /HPF (0-3)
[2020-03-25 13:54] LABS: ALBUMIN 3.5 GM/DL (3.2-5.2); BILIRUBIN,TOTAL 0.5 MG/DL (0.2-1.0); CALCIUM LEVEL 9.1 MG/DL (8.8-10.2); CHOLESTEROL RISK RATIO 3.444 (<5); CREATININE FOR GFR 1.19 MG/DL (0.55-1.30); FREE T4 0.7 NG/DL (0.76-1.46); GLOMERULAR FILTRATION RATE 46.7 (>39); POTASSIUM SERUM 4.6 MEQ/L (3.5-5.1); THYROID STIMULATING HORMONE 22.8 uIU/ML (0.358-3.740); TOTAL 25(OH) VITAMIN D 22.8 NG/ML (30.0-100.0); TOTAL PROTEIN 6.8 GM/DL (6.4-8.2)
[2020-03-25 13:56] LABS: CREATININE, URINE 96.1 MG/DL; MALB URINE SIEMENS 6.7 MG/L; MAU/CREAT RATIO 6.9 MCG/MG (0.0-30.0)
== END ==
LOC: M PLALAB 09:22
PROVIDERS: ATTEND Nurse Practitioner Family
DX: I10 Essential (primary) hypertension (principal); E03.9 Hypothyroidism, unspecified; E55.9 Vitamin D deficiency, unspecified; E78.2 Mixed hyperlipidemia; R30.0 Dysuria

== ENCOUNTER → 2020-07-26 | Outpatient (REF) | payer MEDICARE, OTHER ==
[~2020-07-26] MED LIST changes: +ESCI10TA16 PO; -ESCI10TA2 PO
[2020-07-26 14:16] LABS: APPEARANCE, URINE CLOUDY (CLEAR); BACTERIA, URINE AUTO 3+ (NEGATIVE); BILIRUBIN, URINE AUTO NEGATIVE (NEGATIVE); BLOOD, URINE BLOOD NEGATIVE (NEGATIVE); COLOR, URINE YELLOW (YELLOW); GLUCOSE, URINE (UA) AUTO NEGATIVE (NEGATIVE); KETONE, URINE AUTO NEGATIVE (NEGATIVE); LEUKOCYTE ESTERASE, URINE AUTO 3+ (NEGATIVE); MUCUS, URINE SMALL (NEGATIVE); NITRITE, URINE AUTO POSITIVE (NEGATIVE); PROTEIN, URINE AUTO NEGATIVE (NEGATIVE); RBC, URINE AUTO 13 /HPF (0-3); SPECIFIC GRAVITY URINE AUTO 1.011 (1.002-1.035); SQUAMOUS EPITHELIAL CELL UR AU 3 /HPF (0-6); UROBILINOGEN, URINE AUTO 0.2 mg/dL (0.0-2.0); WBC, URINE AUTO TNTC /HPF (0-3)
[2020-07-26 14:54] LABS: CALCIUM LEVEL 9.4 MG/DL (8.8-10.2); CREATININE FOR GFR 1.14 MG/DL (0.55-1.30); FREE T4 0.84 NG/DL (0.76-1.46); GLOMERULAR FILTRATION RATE 48.9 (>39); POTASSIUM SERUM 4.9 MEQ/L (3.5-5.1); THYROID STIMULATING HORMONE 11.1 uIU/ML (0.358-3.740)
[2020-07-26 15:01] LABS: TOTAL 25(OH) VITAMIN D 27.9 NG/ML (30.0-100.0)
== END ==
LOC: M SFHCPLAZ 10:24
PROVIDERS: ATTEND Nurse Practitioner Family
DX: E55.9 Vitamin D deficiency, unspecified (principal); M54.42 Lumbago with sciatica, left side; E03.9 Hypothyroidism, unspecified; R35.0 Frequency of micturition

== ENCOUNTER → 2020-08-05 | Outpatient (CLI) | payer MEDICARE, BC ==
--- NOTE | 2020-08-05 16:09 | REPMRS ---
Patient History The patient states she had a clinical breast exam in July 2020. Family history of ovarian cancer at age 50 or over in maternal aunt. Reductions of both breasts, 1988. No Hormone Replacement Therapy Digital Woman Screen Mammo: August 05, 2020 - Exam #: [id number] Bilateral CC and MLO view(s) were taken. Technologist: RT Santino Prior study comparison: April 17, 2018, bilateral digital woman screen mammo performed at [facility]. December 29, 2013, right breast digital mammo diagnostic unilateral, performed at [facility]. FINDINGS: There are scattered fibroglandular densities. The Volpara volumetric breast density category is:B. There is a stable subareolar nodule in the right breast unchanged from 2014 prior imaging. There has been no change in the appearance of the mammogram from the prior studies. There is a mild amount of scattered fibroglandular density which is fairly symmetric. There is no interval development of dominant mass, architectural distortion, or grouped microcalcification suggestive of malignancy. 3-D tomosynthesis shows no additional findings. Assessment: BI-RADS/ACR category 2 mammogram. Benign Findings. Recommendation Routine screening mammogram of both breasts in 1 year (for women over age 40). This patient's [facility] Lifetime Breast Cancer Risk is estimated at 1.4 %. This mammogram was interpreted with the aid of an FDA-approved computer-aided dectection system. Electronically Signed By: Josse Perdomo MD 08/05/20 [id number]
== END ==
LOC: M WHC 14:15
PROVIDERS: ATTEND Nurse Practitioner Family
DX: Z12.31 Encounter for screening mammogram for malignant neoplasm of breast (principal)

== ENCOUNTER → 2020-08-13 | Outpatient (REF) | payer MEDICARE, OTHER | LOC: M SFHCPLAZ 16:39 | PROVIDERS: ATTEND Nurse Practitioner Family | DX: B34.9 Viral infection, unspecified (principal); Z20.822 Contact with and (suspected) exposure to COVID-19 | CPT/HCPCS: 87804; G0463; U0003 ==

== ENCOUNTER → 2020-08-18 | Outpatient (REF) | payer MEDICARE, OTHER ==
[2020-08-18 16:08] LABS: BASO % 0.3 % (0.0-1.0); EOS # 0.1 10^3/uL (0.0-0.5); EOS % 1.1 % (0.0-3.0); HEMATOCRIT 39.6 % (36.0-47.0); LYMPH # 0.8 10^3/uL (1.5-5.0); LYMPH % 12.9 % (24.0-44.0); MEAN CORPUSCULAR HEMOGLOBIN 27.6 pg (27.0-33.0); MEAN CORPUSCULAR HGB CONC 30.3 g/dl (32.0-36.5); MONO # 0.7 10^3/uL (0.0-0.8); MONO % 11.4 % (2.0-8.0); NEUTROPHILS # 4.5 10^3/uL (1.5-8.5); NEUTROPHILS % 73.5 % (36.0-66.0); PLATELET COUNT, AUTOMATED 243 10^3/uL (150-450); RED BLOOD COUNT 4.35 10^6/uL (4.00-5.40); WHITE BLOOD COUNT 6.1 10^3/uL (4.0-10.0)
[2020-08-18 16:30] LABS: ALBUMIN 3.7 GM/DL (3.2-5.2); BILIRUBIN,TOTAL 0.4 MG/DL (0.2-1.0); CALCIUM LEVEL 8.9 MG/DL (8.8-10.2); CREATININE FOR GFR 1.18 MG/DL (0.55-1.30); FREE T4 1.11 NG/DL (0.76-1.46); POTASSIUM SERUM 4.8 MEQ/L (3.5-5.1); THYROID STIMULATING HORMONE 5.55 uIU/ML (0.358-3.740)
== END ==
LOC: M SFHCPLAZ 11:45
PROVIDERS: ATTEND Nurse Practitioner Family
DX: R53.83 Other fatigue (principal); E03.9 Hypothyroidism, unspecified

== ENCOUNTER → 2020-11-02 | Outpatient (POV) | payer MEDICARE, BC, OTHER ==
[~2020-11-02] VITALS: Ht 154.9 cm; Wt 68.6 kg
[2020-11-02 08:23] VITALS: BP 168/93
--- NOTE | 2020-11-03 09:09 | IRCOV ---
[facility] IR Consult Office Visit IR Consult Office Visit DATE: November 02, 2020 REASON FOR CONSULTATION/CHIEF COMPLAINT: Painful varicose veins. HISTORY OF PRESENT ILLNESS: 80-year-old female complaining of right greater than left lower extremity pain and swelling associated with bulging veins. Patient reports her symptoms are worse at the end of the day and after prolonged standing. She does wear compression stockings. Her mother also suffered with varicose veins. Patient is unsure if she ever had a DVT in the past. She states that 5 years ago at the time of her hip surgery she was on Coumadin for 10 days. I reviewed her records and imaging dating back to 2010 and there is no record of deep vein thrombosis. Patient denies intermittent claudication or rest pain or pain with leg elevation. ALLERGIES: Please see below. HOME MEDICATIONS: Please see below. PAST MEDICAL HISTORY: Hypertension Hyperlipidemia Vitamin D deficiency Degenerative disc disease Hiatal hernia Diverticulosis Sigmoid diverticulitis Gastroparesis Osteoporosis Migraine headaches Urinary incontinence Retinal hemorrhages Pulmonary nodule Sleep apnea Skin cancer CAHTA Sciatica Atrial fibrillation PVCs PAST SURGICAL HISTORY: Hysterectomy Left hip replacement Colonoscopies EGD Back surgery 2014 Cystoscopy Cataract surgery Cardiac ablation 2019 FAMILY HISTORY: Mother suffered with varicose veins. SOCIAL HISTORY: Quit smoking in 1999. Denies alcohol or drugs. REVIEW OF SYSTEMS: Otherwise negative. PHYSICAL EXAMINATION: VITAL SIGNS: Please see below. GENERAL APPEARANCE: Appears well. Comfortable at rest. HEENT: No scleral icterus. RESPIRATORY: Normal breathing at rest. CARDIOVASCULAR: Normal rate. Heart murmur. ABDOMEN: Soft nontender. EXTREMITIES: Right lower extremity: Trace edema at the ankle. Bulging varicose veins along the greater saphenous territory. Extremity color & temperature normal. Motor & sensation normal. Pulses: Femoral 2+ popliteal 2+ DP 2+ PT 2+. Dry scaly skin. No ulcers. Calf soft nontender. Left lower extremity: Trace edema at the ankle. No significant varicose vein bulging on prolonged standing. Extremity color & temperature normal. Motor & sensation normal. Pulses: Femoral 2+ popliteal 2+ DP 2+ PT 2+. Dry scaly skin. No ulcers. Calf soft nontender. NEUROLOGICAL: Alert and oriented. PSYCHIATRIC: Appropriate to circumstance. LABORATORY DATA: 08/18/2020 hemoglobin 12 hematocrit 39.6 WBC 6.1 platelets 243 sodium 140 potassium 4.8 BUN 14 creatinine 1.18 IMAGING: No lower extremity venous reflux imaging in the system. ASSESSMENT/PLAN: 80-year-old female complaining of right greater than left lower extremity bulging varicose veins, associated with pain and limb swelling. Patient needs a bilateral lower extremity standing venous reflux study to assess for saphenous vein reflux. If patient has incompetent greater saphenous or less saphenous vein, she may be a candidate for EVLT therapy. We have ordered a lower extremity bilateral venous reflux study. I spent 30 minutes reviewing patient's records and in consultation with the patient. Thank you for this referral. Cc Estee Montgomery NP Allergies Coded Allergies: ENVIROMENTAL (Verified Allergy, Mild, 06/02/19) Sulfa (Sulfonamide Antibiotics) (Verified Allergy, Unknown, rash, N/V, 06/02/19) venlafaxine (Verified Allergy, Unknown, Nausea, rash, 06/02/19) Home Medications Scheduled Amlodipine Besylate (Amlodipine Besylate), 2.5 MG PO DAILY, (Reported) Amoxicillin/Potassium Clav (Augmentin 875-125 Tablet), 1 TAB PO BID Azelastine HCl (Azelastine HCl), 2 SPRAY NARES BID, (Reported) Ergocalciferol (Vitamin D2) (Vitamin D2), 50,000 UNIT PO 2XW, (Reported) Flecainide Acetate (Flecainide Acetate), 50 MG PO BID Fluticasone Furoate (Flonase Sensimist), 2 PUFF NARES QHS, (Reported) Gabapentin (Gabapentin), 800 MG PO QHS, (Reported) L. Rhamnosus GG/Inulin (Culturelle Capsule), 1 CAP PO DAILY, (Reported) Levothyroxine Sodium (Levothyroxine Sodium), 75 MCG PO DAILY, (Reported) Methenamine Mandelate (Methenamine Mandelate), 1 GM PO DAILY, (Reported) Oxybutynin Chloride (Ditropan Xl), 10 MG PO DAILY, (Reported) Rosuvastatin Calcium (Crestor), 40 MG PO QHS, (Reported) Topiramate (Topamax), 25 MG PO DAILY Zoledronic Acid/Mannitol-Water (Reclast 5 mg/100 ml Solution), 5 MG IV ASDIRECTED, (Reported) Scheduled PRN Acetaminophen (Tylenol), 650 MG PO TID PRN for PAIN, (Reported) Albuterol Sulfate (Proair Hfa), 2 PUFF INH QID PRN for SHORTNESS OF BREATH, (Reported) Eletriptan Hydrobromide (Relpax), 40 MG PO DAILY PRN for MIGRAINE, (Reported) Ondansetron HCl (Zofran), 4 MG PO Q6H PRN for NAUSEA OR VOMITING, (Reported) VS, I&O, 24H, Fishbone Vital Signs/I&O Vital Signs Date Time Temp Pulse Resp B/P (MAP) Pulse Ox O2 Delivery O2 Flow Rate FiO2 11/02/20 08:23 96.8 75 20 168/93 (118) 96 Room Air NOAM BAE MD November 03, 2020 09:09
== END ==
LOC: M IRPOV 08:11
PROVIDERS: ATTEND Radiology Diagnostic Radiology
DX: I83.813 Varicose veins of bilateral lower extremities with pain (principal); I10 Essential (primary) hypertension; E78.5 Hyperlipidemia, unspecified; K44.9 Diaphragmatic hernia without obstruction or gangrene; R91.8 Other nonspecific abnormal finding of lung field; G43.909 Migraine, unspecified, not intractable, without status migrainosus; G47.33 Obstructive sleep apnea (adult) (pediatric); J30.89 Other allergic rhinitis; I48.91 Unspecified atrial fibrillation; Z79.899 Other long term (current) drug therapy; Z88.2 Allergy status to sulfonamides; Z88.8 Allergy status to other drugs, medicaments and biological substances; Z96.642 Presence of left artificial hip joint; Z96.1 Presence of intraocular lens; Z87.891 Personal history of nicotine dependence

== ENCOUNTER → 2020-11-16 | Outpatient (CLI) | payer MEDICARE, BC, OTHER ==
[~2020-11-16] MED LIST changes: +AMIL5TAB4 PO; +ASPI81TA26 PO; +CEPH500C PO; +ERGO500029 PO; +FURO20TA2 PO; +GABA-283 PO; -GABA-845 PO; +ISOS1TAB36 PO; +TELM1TAB37 PO; -VITA50005 PO
--- NOTE | 2020-11-16 12:16 | REP ---
INDICATION: VARICOSE VEINS COMPARISON: 03/22/2015. TECHNIQUE: Real time compression and duplex Doppler interrogation of the bilateral lower extremity deep venous system is performed. FINDINGS: Bilaterally, the common femoral, superficial femoral and popliteal veins are fully compressible with transducer pressure and demonstrate normal spontaneous and phasic flow, without evidence of deep venous thrombosis. Evaluation for venous reflux is performed. There is no reflux in any of the right lower extremity deep veins. There is reflux in the right greater saphenous vein at the saphenofemoral junction with a duration of 5.5 seconds, AP diameter 5 mm, also at the midthigh with duration of 6.3 seconds, AP diameter 3 mm. Reflux continues through a perforating vein to the deep venous system. There is no reflux in the greater saphenous vein at the knee which measures 1 mm. Lesser greater saphenous vein measures 8 mm with wall thickening. There is reflux in the right lesser saphenous vein with duration of 4.7 seconds. In the left lower extremity there is reflux throughout the deep venous system. There is no reflux in any portion of the greater saphenous vein, which measures 5 mm at the saphenofemoral junction and 3 mm more distally. There is reflux in the lesser saphenous vein in the standing position and with augmentation, with duration of 2.4 seconds and AP diameter 5 mm. IMPRESSION: No evidence of deep venous thrombosis of the bilateral lower extremity femoral popliteal venous system. Venous reflux as discussed in detail above. <Electronically signed by Stephen Moreno > 11/16/20 [id number]
== END ==
LOC: M RAD 10:01
PROVIDERS: ATTEND Radiology Diagnostic Radiology
DX: I83.90 Asymptomatic varicose veins of unspecified lower extremity (principal); R22.43 Localized swelling, mass and lump, lower limb, bilateral

== ENCOUNTER → 2020-12-16 | Outpatient (CLI) | payer MEDICARE, OTHER ==
--- NOTE | 2020-12-16 14:18 | REPPI ---
INDICATION: M54.5 LOW BACK PAIN. COMPARISON: 09/21/2015 the latest prior TECHNIQUE: AP and lateral views FINDINGS: There is a stable dextroconvex thoracolumbar curve. Vertebral body height and alignment is unchanged. There is disc space narrowing at every level which has increased. There is anterior lipping which has increased. Degenerative facet joint changes are seen at every level bilaterally. This has increased. IMPRESSION: Chronic changes as described above seen on this limited three-view exam. <Electronically signed by Patrick Gardiner > 12/16/20 [id number]
== END ==
LOC: M PLAIMG 12:05
PROVIDERS: ATTEND Nurse Practitioner Family
DX: M51.37 Other intervertebral disc degeneration, lumbosacral region (principal); M54.5 Low back pain; E03.9 Hypothyroidism, unspecified; I10 Essential (primary) hypertension; E55.9 Vitamin D deficiency, unspecified
CPT/HCPCS: 36415; 72100; 80048; 82306; 84439; 84443; G0463

== ENCOUNTER → 2020-12-16 | Outpatient (REF) | payer MEDICARE, OTHER ==
[2020-12-16 13:55] LABS: CALCIUM LEVEL 9.2 MG/DL (8.8-10.2); FREE T4 1.15 NG/DL (0.76-1.46); GLOMERULAR FILTRATION RATE 56.9 (>39); POTASSIUM SERUM 4.9 MEQ/L (3.5-5.1); THYROID STIMULATING HORMONE 4.44 uIU/ML (0.358-3.740)
[2020-12-16 13:56] LABS: TOTAL 25(OH) VITAMIN D 77.6 NG/ML (30.0-100.0)
== END ==
LOC: M SFHCPLAZ 12:02
PROVIDERS: ATTEND Nurse Practitioner Family
DX: E03.9 Hypothyroidism, unspecified (principal); I10 Essential (primary) hypertension; E55.9 Vitamin D deficiency, unspecified

== ENCOUNTER → 2020-12-23 | Outpatient (CLI) | payer MEDICARE, BC, OTHER ==
[~2020-12-23] MED LIST changes: +LIDOCAINE 1% MDV 20ML VIAL As Ordered ONE; +LIDOCAINE 2% MDV 20ML VIAL As Ordered ONE; +MIDAZOLAM INJ 2MG/2ML VIAL (J2250 PER 1MG) As Ordered ONE; +NS 1,000 ML IV SCH; +PROMETHAZINE INJ 25 MG/ML VIAL (J2550) As Ordered ONE; +diphenhydrAMINE 50MG/ML VIAL (J1200) As Ordered ONE; +fentaNYL 100 MCG/2 ML INJECTION (J3010) As Ordered ONE
[2020-12-23 08:20] LABS: HEMATOCRIT 42.1 % (36.0-47.0); HEMOGLOBIN 12.9 g/dl (12.0-15.5); MEAN CORPUSCULAR HEMOGLOBIN 26.6 pg (27.0-33.0); MEAN CORPUSCULAR HGB CONC 30.6 g/dl (32.0-36.5); MEAN CORPUSCULAR VOLUME 86.8 fl (80.0-96.0); PLATELET COUNT, AUTOMATED 243 10^3/uL (150-450); RED BLOOD COUNT 4.85 10^6/uL (4.00-5.40); WHITE BLOOD COUNT 5.4 10^3/uL (4.0-10.0)
--- NOTE | 2020-12-23 08:20 | IRHP ---
[facility] IR Pre-Procedure H & P General Date of Service: Dec 23, 2020 Procedure: Same Day Surgery Interval History and Physical I have seen the patient and reviewed last H & P performed within 30 days. There is no significant interval change. History of Present Illness Chief Complaint The patient is a 80-year-old female admitted with a reason for visit of [place] Htn/Saphenous Vein Reflux. PRE-PROCEDURE DIAGNOSIS: Varicose veins HEART: Normal rate. LUNGS: Normal breathing at rest. ASA Classification ASA Classification: II-Mild systemic disease Mallampati Score: II NPO: Yes Problems with prior sedation: No Obstructive Sleep Apnea: No Plan moderate sedation Allergies Coded Allergies: ENVIROMENTAL (Verified Allergy, Mild, 06/02/19) Sulfa (Sulfonamide Antibiotics) (Verified Allergy, Unknown, rash, N/V, 06/02/19) venlafaxine (Verified Allergy, Unknown, Nausea, rash, 06/02/19) Home Medications Scheduled Amlodipine Besylate (Amlodipine Besylate), 2.5 MG PO DAILY, (Reported) Amoxicillin/Potassium Clav (Augmentin 875-125 Tablet), 1 TAB PO BID Azelastine HCl (Azelastine HCl), 2 SPRAY NARES BID, (Reported) Ergocalciferol (Vitamin D2) (Vitamin D2), 50,000 UNIT PO 2XW, (Reported) Flecainide Acetate (Flecainide Acetate), 50 MG PO BID Fluticasone Furoate (Flonase Sensimist), 2 PUFF NARES QHS, (Reported) Gabapentin (Gabapentin), 800 MG PO QHS, (Reported) L. Rhamnosus GG/Inulin (Culturelle Capsule), 1 CAP PO DAILY, (Reported) Levothyroxine Sodium (Levothyroxine Sodium), 75 MCG PO DAILY, (Reported) Methenamine Mandelate (Methenamine Mandelate), 1 GM PO DAILY, (Reported) Oxybutynin Chloride (Ditropan Xl), 10 MG PO DAILY, (Reported) Rosuvastatin Calcium (Crestor), 40 MG PO QHS, (Reported) Topiramate (Topamax), 25 MG PO DAILY Zoledronic Acid/Mannitol-Water (Reclast 5 mg/100 ml Solution), 5 MG IV ASDIRECTED, (Reported) Scheduled PRN Acetaminophen (Tylenol), 650 MG PO TID PRN for PAIN, (Reported) Albuterol Sulfate (Proair Hfa), 2 PUFF INH QID PRN for SHORTNESS OF BREATH, (Rep orted) Eletriptan Hydrobromide (Relpax), 40 MG PO DAILY PRN for MIGRAINE, (Reported) Ondansetron HCl (Zofran), 4 MG PO Q6H PRN for NAUSEA OR VOMITING, (Reported) VS, I&O, 24H, Fishbone Vital Signs/I&O Vital Signs Date Time Temp Pulse Resp B/P (MAP) Pulse Ox O2 Delivery O2 Flow Rate FiO2 12/23/20 07:57 97.9 76 20 97 Room Air Laboratory Data CBC/BMP NOAM BAE MD Dec 23, 2020 08:20
[2020-12-23 11:34] VITALS: BP 150/72
--- NOTE | 2020-12-27 14:19 | IRPON ---
IR Postoperative Note Date Of Procedure: Dec 23, 2020 Time Of Procedure: 16:00 IR Postoperative Note IR Endovenous laser treatment for right leg varicose vein. IR Ultrasound of the right leg. IR Tumescent anesthesia under ultrasound guidance. IR Moderate sedation. Clinical information: Right leg pain and swelling. Varicose veins. 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 Physician: Dr. Martin. Procedure: The patient was advised of the benefits, risks and alternatives of the procedure and informed consent was obtained. The time-out was performed with verification of the patient's name, MRN, site of procedure and type of procedure to be performed. The patient was positioned in the supine position on the table. The site was prepped and draped in the usual sterile fashion. Moderate sedation was performed by the physician including the presence of an independent trained RN who assisted in monitoring the patient's level of consciousness and physiologic status. Following the administration of fentanyl and Versed , the physician spent 60 minutes of continuous face to face time with the patient. Ultrasound of the right lower extremity demonstrates right greater saphenous vein with greater than 0.5 seconds reflux. The greater saphenous vein is accessible to the mid thigh, beyond which it diverges into tiny collaterals. The access site was identified with ultrasound and anesthetized with lidocaine. The right greater saphenous vein was accessed under ultrasound guidance at the mid thigh, using a micro introducer needle. An 018 cope wire was advanced into the vein. Incision at the access site was made using a scalpel. The needle was removed and an access catheter was advanced over the wire under ultrasound guidance to > 2.5 centimeters from the saphenofemoral junction. The wire was removed and the laser fiber was advanced through the catheter under ultrasound guidance and positioned with the tip located 2.5 cm from the saphenous femoral junction. Tumescent anesthesia was then injected under ultrasound guidance along the entire length of the vein to be treated. Repeat ultrasound of the saphenofemoral junction was used to confirm positioning of the tip of the laser back 2.5 cm from junction. The patient was positioned in Trendelenburg. The laser was then activated and under ultrasound guidance used to laser the Right greater saphenous vein back to the access point. Simultaneous manual compression was applied to the treated vein. Treatment: Wattage: 7. Time: 65 seconds. Pullback rate 1 cm every 7 seconds. Total Energy deposited 450 joules. Treatment 50 joules per centimeter of vein. The fiber, catheter and sheath were removed, pressure held and hemostasis achieved. A sterile dressing was applied to the site. Compression dressing was then applied to the leg, from ankle to groin. The patient tolerated the procedure well and was returned to the PRU in stable condition. EBL: < 5 ml. Complications: None. Impression: 1. Ultrasound demonstrates right greater saphenous vein with greater than 0.5 seconds reflux. 2. Successful right greater saphenous vein ablation with laser. 3. Compression dressing applied from ankle to groin. Patient to return in 1 week for follow up ultrasound at which time the compression dressing will be switched to stockings. Thank you this referral. NOAM High NP, MD Dec 27, 2020 14:19
== END ==
LOC: M IRPRO 07:48
PROVIDERS: ATTEND Radiology Diagnostic Radiology
DX: I83.891 Varicose veins of right lower extremity with other complications (principal); I87.2 Venous insufficiency (chronic) (peripheral); G47.33 Obstructive sleep apnea (adult) (pediatric); J30.89 Other allergic rhinitis; Z79.890 Hormone replacement therapy; Z79.899 Other long term (current) drug therapy; Z88.2 Allergy status to sulfonamides; Z88.8 Allergy status to other drugs, medicaments and biological substances
CPT/HCPCS: 36478; 76940; 85027; 99152; 99153; J1200; J2250; J3010

== ENCOUNTER 2020-12-26 03:40 | Emergency (ER) | payer MEDICARE, BC, OTHER ==
[~2020-12-26] VITALS: Ht 154.9 cm; Wt 68.1 kg
[~2020-12-26 03:40] MED LIST changes: -CEPH500C PO; -ISOS1TAB36 PO; -LIDOCAINE 1% MDV 20ML VIAL As Ordered ONE; -LIDOCAINE 2% MDV 20ML VIAL As Ordered ONE; -MIDAZOLAM INJ 2MG/2ML VIAL (J2250 PER 1MG) As Ordered ONE; -NS 1,000 ML IV SCH; -PROMETHAZINE INJ 25 MG/ML VIAL (J2550) As Ordered ONE; -diphenhydrAMINE 50MG/ML VIAL (J1200) As Ordered ONE; -fentaNYL 100 MCG/2 ML INJECTION (J3010) As Ordered ONE
[2020-12-26] MEDS ORDERED: ISOS1TAB36 PO (03:56)
[2020-12-26] MEDS ORDERED: cefTRIAXone SOD 1 GM in D5W MINI-BAG PLUS 50 ML IV ONE (05:30)
[2020-12-26 06:14] LABS: HEMATOCRIT 39.2 % (36.0-47.0); HEMOGLOBIN 12.6 g/dl (12.0-15.5); MEAN CORPUSCULAR HEMOGLOBIN 27.1 pg (27.0-33.0); MEAN CORPUSCULAR HGB CONC 32.1 g/dl (32.0-36.5); MEAN CORPUSCULAR VOLUME 84.3 fl (80.0-96.0); PLATELET COUNT, AUTOMATED 249 10^3/uL (150-450); RED BLOOD COUNT 4.65 10^6/uL (4.00-5.40); WHITE BLOOD COUNT 7.1 10^3/uL (4.0-10.0)
[2020-12-26 06:35] LABS: CALCIUM LEVEL 8.6 MG/DL (8.8-10.2); CREATININE FOR GFR 1.07 MG/DL (0.55-1.30); GLOMERULAR FILTRATION RATE 52.7 (>39); POTASSIUM SERUM 4.7 MEQ/L (3.5-5.1)
[2020-12-26] MEDS ORDERED: CEPH500C PO (07:31)
[2020-12-26 07:37] VITALS: BP 176/78
== END 2020-12-26 08:11 | disposition home or self-care (01) ==
LOC: M ED 03:40
DX: N39.0 Urinary tract infection, site not specified (principal); R33.9 Retention of urine, unspecified; J30.89 Other allergic rhinitis; Z79.82 Long term (current) use of aspirin; Z79.899 Other long term (current) drug therapy; Z88.2 Allergy status to sulfonamides; Z88.8 Allergy status to other drugs, medicaments and biological substances
CPT/HCPCS: 51702; 80048; 81001; 85027; 87088; 87186; 96365; 99284; J0696

== ENCOUNTER → 2020-12-30 | Outpatient (CLI) | payer MEDICARE, BC, OTHER ==
[~2020-12-30] MED LIST changes: +CEPH500C PO; +ISOS1TAB36 PO
--- NOTE | 2020-12-30 11:44 | REP ---
INDICATION: S/P EVLT, R/O DVT COMPARISON: 11/16/2020 TECHNIQUE: Moreno scale and color Doppler evaluation using linear high frequency transducer. FINDINGS: Ultrasound examination of the right lower extremity deep venous structures from the common femoral vein through the calf/ankle to include the peroneal, and tibial veins demonstrates normal compressibility flow and wave patterns in response to respiration and augmentation. There is no evidence for deep venous thrombosis. Contralateral CFV is patent and normal. The greater saphenous vein is thrombosed beginning 8 mm from the junction with the common femoral vein and is consistent with the given history of prior EVLT. IMPRESSION: No evidence for deep venous thrombosis. <Electronically signed by Cale Gonzalez > 12/30/20 1140
== END ==
LOC: M RAD 11:07
PROVIDERS: ATTEND Radiology Diagnostic Radiology
DX: Z86.718 Personal history of other venous thrombosis and embolism (principal)

== ENCOUNTER → 2021-01-06 | Outpatient (REF) | payer MEDICARE, BC, OTHER ==
[2021-01-06 14:06] LABS: APPEARANCE, URINE HAZY (CLEAR); BACTERIA, URINE AUTO NEGATIVE (NEGATIVE); BILIRUBIN, URINE AUTO NEGATIVE (NEGATIVE); BLOOD, URINE BLOOD NEGATIVE (NEGATIVE); COLOR, URINE YELLOW (YELLOW); GLUCOSE, URINE (UA) AUTO NEGATIVE (NEGATIVE); KETONE, URINE AUTO NEGATIVE (NEGATIVE); LEUKOCYTE ESTERASE, URINE AUTO 2+ (NEGATIVE); NITRITE, URINE AUTO NEGATIVE (NEGATIVE); PROTEIN, URINE AUTO NEGATIVE (NEGATIVE); RBC, URINE AUTO 0 /HPF (0-3); SQUAMOUS EPITHELIAL CELL UR AU 2 /HPF (0-6); UROBILINOGEN, URINE AUTO 0.2 mg/dL (0.0-2.0); WBC, URINE AUTO 26 /HPF (0-3)
== END ==
LOC: M SMT 12:56
PROVIDERS: ATTEND Nurse Practitioner Family
DX: R30.0 Dysuria (principal); R33.9 Retention of urine, unspecified
CPT/HCPCS: 51798; 81001; 87088; 87186; G0463

== ENCOUNTER → 2021-01-11 | Outpatient (POV) | payer MEDICARE, BC, OTHER ==
[~2021-01-11] VITALS: Ht 154.9 cm; Wt 68.6 kg
[2021-01-11 09:15] VITALS: BP 160/90
--- NOTE | 2021-01-12 14:47 | IRPN ---
[facility] IR Progress Note IR Progress Note DATE: Jan 11, 2021 FOLLOW-UP: Patient is now status post right lower extremity extremity GSV EVLT. Patient states she is doing well. She describes the pain on the front of her tibia, which she used to experience preprocedure, is now completely gone away. She has no pain or swelling in the right leg. She still has her neuropathy pain which she recognizes as distinctly different. She continues to wear compression stockings. ON EXAMINATION: No pedal edema. Imaging: I personally reviewed her 1 week post EVLT follow-up ultrasound, which demonstrates no DVT. Appropriately treated right GSV. IMPRESSION: Doing off status post right lower extremity GSV EVLT. Patient has noticed her right leg pain is now resolved. Patient is encouraged to continue wearing compression stockings. She does have reflux in her right lesser saphenous vein and in her left lesser saphenous vein, both are amenable to treatment if required and if she has ongoing bothersome symptoms. Thank you for this referral. Cc Estee Montgomery EDUCATION PROGRAM MANAGER Allergies Coded Allergies: ENVIROMENTAL (Verified Allergy, Mild, 06/02/19) Sulfa (Sulfonamide Antibiotics) (Verified Allergy, Unknown, rash, N/V, 06/02/19) venlafaxine (Verified Allergy, Unknown, Nausea, rash, 06/02/19) VS,Fishbone, I+O VS, Fishbone, I+O Vital Signs Date Time Temp Pulse Resp B/P (MAP) Pulse Ox O2 Delivery O2 Flow Rate FiO2 01/11/21 09:15 97.3 77 20 160/90 (113) 95 Room Air NOAM BAE MD Jan 12, 2021 14:47
== END ==
LOC: M IRPOV 09:10
PROVIDERS: ATTEND Radiology Diagnostic Radiology
DX: Z48.812 Encounter for surgical aftercare following surgery on the circulatory system (principal); I87.2 Venous insufficiency (chronic) (peripheral); Z88.2 Allergy status to sulfonamides; Z88.8 Allergy status to other drugs, medicaments and biological substances

== ENCOUNTER → 2021-04-04 | Outpatient (CLI) | payer MEDICARE, BC, OTHER ==
[~2021-04-04] MED LIST changes: -DOXY100C; +DOXY100C3
[2021-04-04 14:28] LABS: ALBUMIN 3.6 GM/DL (3.2-5.2); BILIRUBIN,TOTAL 0.4 MG/DL (0.2-1.0); CHOLESTEROL RISK RATIO 2.059 (<5); CREATININE FOR GFR 1.03 MG/DL (0.55-1.30); FREE T4 1.24 NG/DL (0.76-1.46); POTASSIUM SERUM 4.6 MEQ/L (3.5-5.1); THYROID STIMULATING HORMONE 2.68 uIU/ML (0.358-3.740); TOTAL PROTEIN 6.9 GM/DL (6.4-8.2)
== END ==
LOC: M PLALAB 09:19
PROVIDERS: ATTEND Nurse Practitioner Family
DX: E03.9 Hypothyroidism, unspecified (principal)

== ENCOUNTER → 2021-04-26 | Outpatient (POV) | payer MEDICARE, BC, OTHER ==
[~2021-04-26] VITALS: Ht 154.9 cm; Wt 66.3 kg
[2021-04-26 10:38] VITALS: BP 136/80
--- NOTE | 2021-04-28 12:17 | IRPN ---
[facility] IR Progress Note IR Progress Note DATE: Apr 26, 2021 FOLLOW-UP: Patient is status post right lower extremity EVLT some months ago. No new symptoms in the right lower extremity. She had a successful GSV ablation. Patient does complain of several years of burning itching and pain arising from the right lower back which shoots down the right lower extremity. We discussed these pains sound neuropathic in nature and are unlikely to be related to the underlying lesser saphenous vein. Patient does not endorse any bulging veins along the posterior calf or skin breakdown or aching in the lower calf. We discussed that EVLT of the lesser saphenous vein given this symptomatology is not likely to help. I have recommended referral to pain clinic. We will refer her to pain clinic. Cc Estee Montgomery NP Allergies Coded Allergies: ENVIROMENTAL (Verified Allergy, Mild, 06/02/19) Sulfa (Sulfonamide Antibiotics) (Verified Allergy, Unknown, rash, N/V, 06/02/19) venlafaxine (Verified Allergy, Unknown, Nausea, rash, 06/02/19) VS,Fishbone, I+O VS, Fishbone, I+O Vital Signs Date Time Temp Pulse Resp B/P (MAP) Pulse Ox O2 Delivery O2 Flow Rate FiO2 04/26/21 10:38 97.0 72 20 136/80 (98) 97 Room Air NOAM BAE MD Apr 28, 2021 12:17
== END ==
LOC: M IRPOV 10:32
PROVIDERS: ATTEND Radiology Diagnostic Radiology
DX: Z48.812 Encounter for surgical aftercare following surgery on the circulatory system (principal); M54.50 Low back pain, unspecified; M79.604 Pain in right leg

== ENCOUNTER → 2021-07-04 | Outpatient (CLI) | payer MEDICARE, BC, OTHER ==
[2021-07-04 15:57] LABS: CREATININE FOR GFR 1.11 MG/DL (0.55-1.30); GLOMERULAR FILTRATION RATE 50.3 (>32)
== END ==
LOC: M PLALAB 12:02
PROVIDERS: ATTEND Physician Assistant Medical
DX: M54.50 Low back pain, unspecified (principal)

== ENCOUNTER → 2021-07-14 | Outpatient (REF) | payer MEDICARE, BC, OTHER ==
[~2021-07-14] MED LIST changes: +GABA-282; +LEVO112T2
== END ==
LOC: EEVIPCON 17:16 → M SFHCPLAZ 17:16
PROVIDERS: ATTEND Physician Assistant
DX: R30.0 Dysuria (principal)

== ENCOUNTER 2021-08-05 16:13 | Emergency (ER) | payer MEDICARE, BC, OTHER ==
[~2021-08-05] VITALS: Ht 154.9 cm; Wt 69.9 kg
[~2021-08-05 16:13] MED LIST changes: -GABA-282; -LEVO112T2
[2021-08-05 17:04] LABS: BASO % 0.6 % (0.0-1.0); EOS # 0.1 10^3/uL (0.0-0.5); EOS % 1.2 % (0.0-3.0); HEMATOCRIT 43.4 % (36.0-47.0); HEMOGLOBIN 13.9 g/dl (12.0-15.5); LYMPH # 1.3 10^3/uL (1.5-5.0); LYMPH % 26.2 % (24.0-44.0); MEAN CORPUSCULAR VOLUME 90.4 fl (80.0-96.0); MONO # 0.7 10^3/uL (0.0-0.8); MONO % 14.3 % (2.0-8.0); NEUTROPHILS # 2.8 10^3/uL (1.5-8.5); NEUTROPHILS % 57.3 % (36.0-66.0); PLATELET COUNT, AUTOMATED 245 10^3/uL (150-450); WHITE BLOOD COUNT 4.8 10^3/uL (4.0-10.0)
[2021-08-05 17:30] LABS: CK-MB VALUE MASS < 1.0 NG/ML (<3.6); CPK CREATINE PHOSPHOKINASE 39 U/L (26-192); MB/CK RELATIVE INDEX 2.56 (< OR =4)
[2021-08-05 17:30] LABS: ALBUMIN 3.6 GM/DL (3.2-5.2); BILIRUBIN,DIRECT 0.1 MG/DL (0.0-0.2); BILIRUBIN,TOTAL 0.3 MG/DL (0.2-1.0); CALCIUM LEVEL 8.9 MG/DL (8.8-10.2); CREATININE FOR GFR 0.98 MG/DL (0.55-1.30); GLOMERULAR FILTRATION RATE 58.1 (>32)
[2021-08-05] MEDS ORDERED: ACETAMINOPHEN *IV* 1,000 MG in IV 1 EA IV ONE (17:40)
[2021-08-05 17:44] LABS: INR 0.95; PROTHROMBIN TIME 13.1 SECONDS (12.7-14.5)
[2021-08-05 18:21] LABS: CK-MB VALUE MASS < 1.0 NG/ML (<3.6); CPK CREATINE PHOSPHOKINASE 31 U/L (26-192); MB/CK RELATIVE INDEX 3.23 (< OR =4)
[2021-08-05] MEDS ORDERED: TELMISARTAN 20 MG TAB PO ONE (18:50)
[2021-08-05 19:36] LABS: RSV AMPLIFICATION NEGATIVE (NEGATIVE)
[2021-08-05 22:01] VITALS: BP 166/96
[2021-08-05] MEDS ORDERED: LEVO112T2 (22:45)
[2021-08-05] MEDS ORDERED: GABA-282 (22:45)
== END 2021-08-05 22:57 | disposition home or self-care (01) ==
LOC: M ED 16:13
DX: R07.9 Chest pain, unspecified (principal); I10 Essential (primary) hypertension; I48.91 Unspecified atrial fibrillation; E78.5 Hyperlipidemia, unspecified; Z87.891 Personal history of nicotine dependence; Z88.1 Allergy status to other antibiotic agents; Z88.2 Allergy status to sulfonamides; Z88.8 Allergy status to other drugs, medicaments and biological substances
CPT/HCPCS: 70450; 71045; 80048; 80076; 82550; 82553; 83690; 84484; 85025; 85610; 87631; 93005; 93041; 94760; 96374; 99285; J0131

== ENCOUNTER → 2021-08-05 | Outpatient (REF) | payer MEDICARE | LOC: M SFHCPLAZ 17:04 | PROVIDERS: ATTEND Physician Assistant | DX: R07.89 Other chest pain (principal); R51.9 Headache, unspecified ==

== ENCOUNTER → 2021-09-23 | Outpatient (CLI) | payer MEDICARE, BC, OTHER ==
[~2021-09-23] MED LIST changes: +GABA-282; +LEVO112T2
== END ==
LOC: M WHC 09:45
PROVIDERS: ATTEND Physician Assistant
DX: Z12.31 Encounter for screening mammogram for malignant neoplasm of breast (principal); Z13.820 Encounter for screening for osteoporosis; M81.0 Age-related osteoporosis without current pathological fracture

== ENCOUNTER → 2022-01-11 | Outpatient (CLI) | payer MEDICARE, BC, OTHER | LOC: M PLALAB 15:05 | PROVIDERS: ATTEND Internal Medicine Hematology | DX: Z01.818 Encounter for other preprocedural examination (principal); Z79.899 Other long term (current) drug therapy ==

== ENCOUNTER → 2022-01-13 | Outpatient (REF) | payer MEDICARE, OTHER, BC | LOC: M SFHCPLAZ 12:49 | PROVIDERS: ATTEND Physician Assistant | DX: R30.0 Dysuria (principal) ==

== ENCOUNTER → 2022-02-06 | Outpatient (REF) | payer MEDICARE, OTHER, BC | LOC: M SFHCADAM 12:41 | PROVIDERS: ATTEND Physician Assistant | DX: R30.0 Dysuria (principal) ==

== ENCOUNTER 2022-04-14 19:21 | Emergency (ER) | payer MEDICARE, OTHER, BC ==
[~2022-04-14] VITALS: Ht 149.9 cm; Wt 65.5 kg
[2022-04-14] MEDS ORDERED: CELE100C PO (19:34)
[2022-04-14] MEDS ORDERED: AMIT10TA7 PO (19:34)
[2022-04-14] MEDS ORDERED: traMADol 50 MG TAB (HOME DOSE PACK) PO ONE (21:45)
[2022-04-14] MEDS ORDERED: traMADol 50 MG TAB PO ONE (21:45)
[2022-04-14 22:09] VITALS: BP 168/76
== END 2022-04-14 22:22 | disposition home or self-care (01) ==
LOC: M ED 19:21
DX: M85.88 Other specified disorders of bone density and structure, other site (principal); M18.12 Unilateral primary osteoarthritis of first carpometacarpal joint, left hand; I10 Essential (primary) hypertension; E07.9 Disorder of thyroid, unspecified; E78.5 Hyperlipidemia, unspecified; J45.909 Unspecified asthma, uncomplicated; Z79.890 Hormone replacement therapy; Z79.82 Long term (current) use of aspirin; Z79.899 Other long term (current) drug therapy; Z88.2 Allergy status to sulfonamides; Z88.8 Allergy status to other drugs, medicaments and biological substances

== ENCOUNTER → 2022-04-24 | Outpatient (CLI) | payer MEDICARE, OTHER, BC ==
[~2022-04-24] MED LIST changes: +AMIT10TA7 PO; +CELE100C PO
== END ==
LOC: M SOG 16:07
PROVIDERS: ATTEND Orthopaedic Surgery Hand Surgery
DX: S62.317A Displaced fracture of base of fifth metacarpal bone, left hand, initial encounter for closed fracture (principal)

== ENCOUNTER → 2022-05-23 | Outpatient (CLI) | payer MEDICARE, OTHER, BC | LOC: M SOG 09:52 | PROVIDERS: ATTEND Orthopaedic Surgery Hand Surgery | DX: S62.346D Nondisplaced fracture of base of fifth metacarpal bone, right hand, subsequent encounter for fracture with routine healing (principal); W18.30XD Fall on same level, unspecified, subsequent encounter ==

== ENCOUNTER → 2022-06-08 | Outpatient (CLI) | payer MEDICARE, OTHER, BC | LOC: M SOG 13:20 | PROVIDERS: ATTEND Orthopaedic Surgery Hand Surgery | DX: S62.346D Nondisplaced fracture of base of fifth metacarpal bone, right hand, subsequent encounter for fracture with routine healing (principal) ==

== ENCOUNTER → 2022-08-08 | Outpatient (CLI) | payer MEDICARE, BC, OTHER ==
[2022-08-08 16:19] LABS: BLOOD UREA NITROGEN 14 MG/DL (9-23); CARBON DIOXIDE LEVEL 31 MMOL/L (20-31); CHLORIDE LEVEL 103 MMOL/L (98-107); CREATININE FOR GFR 0.86 MG/DL (0.55-1.30); GLOMERULAR FILTRATION RATE > 60.0 (>32); GLUCOSE, FASTING 87 MG/DL (74-106); POTASSIUM SERUM 4.5 MMOL/L (3.5-5.1); SODIUM LEVEL 142 MMOL/L (136-145)
[2022-08-08 16:22] LABS: HEMATOCRIT 43.5 % (36.0-47.0); HEMOGLOBIN 13.7 g/dl (12.0-15.5); MEAN CORPUSCULAR HEMOGLOBIN 29.1 pg (27.0-33.0); MEAN CORPUSCULAR HGB CONC 31.5 g/dl (32.0-36.5); MEAN CORPUSCULAR VOLUME 92.4 fl (80.0-96.0); PLATELET COUNT, AUTOMATED 239 10^3/uL (150-450); RED BLOOD COUNT 4.71 10^6/uL (4.00-5.40)
== END ==
LOC: M PLALAB 09:45
PROVIDERS: ATTEND Internal Medicine Cardiovascular Disease
DX: R06.02 Shortness of breath (principal); I10 Essential (primary) hypertension

== ENCOUNTER → 2022-11-30 | Outpatient (REF) | payer MEDICARE, OTHER ==
[2022-11-30 14:13] LABS: BASO % 0.1 % (0.0-1.0); EOS % 0.5 % (0.0-3.0); HEMATOCRIT 44.1 % (36.0-47.0); HEMOGLOBIN 14.1 g/dl (12.0-15.5); LYMPH # 1.1 10^3/uL (1.5-5.0); LYMPH % 13.8 % (24.0-44.0); MEAN CORPUSCULAR HEMOGLOBIN 30.9 pg (27.0-33.0); MEAN CORPUSCULAR VOLUME 96.5 fl (80.0-96.0); MONO # 1.2 10^3/uL (0.0-0.8); NEUTROPHILS # 5.8 10^3/uL (1.5-8.5); NEUTROPHILS % 69.9 % (36.0-66.0); PLATELET COUNT, AUTOMATED 199 10^3/uL (150-450); RED BLOOD COUNT 4.57 10^6/uL (4.00-5.40); WHITE BLOOD COUNT 8.3 10^3/uL (4.0-10.0)
[2022-11-30 14:15] LABS: ALBUMIN 3.6 G/DL (3.2-5.2); BILIRUBIN,TOTAL 0.7 MG/DL (0.3-1.2); CALCIUM LEVEL 8.3 MG/DL (8.3-10.6); CREATININE FOR GFR 0.99 MG/DL (0.55-1.30); GLOMERULAR FILTRATION RATE 57.3 (>32); POTASSIUM SERUM 4.5 MMOL/L (3.5-5.1); TOTAL PROTEIN 6.1 G/DL (5.7-8.2)
[2022-11-30 14:16] LABS: FREE T4 1.17 NG/DL (0.89-1.76); THYROID STIMULATING HORMONE 1.669 uIU/ML (0.55-4.78); TOTAL 25(OH) VITAMIN D 40.6 NG/ML (20.0-100.0)
== END ==
LOC: M SFHCADAM 10:34
PROVIDERS: ATTEND Physician Assistant
DX: N30.01 Acute cystitis with hematuria (principal); E03.9 Hypothyroidism, unspecified; M81.0 Age-related osteoporosis without current pathological fracture

== ENCOUNTER → 2023-01-31 | Outpatient (REF) | payer MEDICARE, OTHER ==
[~2023-01-31] MED LIST changes: -GABA-283 PO; +GABA-284 PO; +METH1000 PO; -METH1TAB PO
[2023-01-31 14:51] LABS: APPEARANCE, URINE CLOUDY (CLEAR); BACTERIA, URINE AUTO 1+ (NEGATIVE); BILIRUBIN, URINE AUTO NEGATIVE (NEGATIVE); BLOOD, URINE BLOOD NEGATIVE (NEGATIVE); COLOR, URINE YELLOW (YELLOW); GLUCOSE, URINE (UA) AUTO NEGATIVE (NEGATIVE); KETONE, URINE AUTO NEGATIVE (NEGATIVE); LEUKOCYTE ESTERASE, URINE AUTO 3+ (NEGATIVE); MUCUS, URINE SMALL (NEGATIVE); NITRITE, URINE AUTO POSITIVE (NEGATIVE); PROTEIN, URINE AUTO NEGATIVE (NEGATIVE); RBC, URINE AUTO 5 /HPF (0-3); SPECIFIC GRAVITY URINE AUTO 1.013 (1.002-1.035); SQUAMOUS EPITHELIAL CELL UR AU 6 /HPF (0-6); UROBILINOGEN, URINE AUTO 0.2 mg/dL (0.0-2.0); WBC, URINE AUTO TNTC /HPF (0-3)
== END ==
LOC: M LABSMT 10:15
PROVIDERS: ATTEND Urology
DX: N39.0 Urinary tract infection, site not specified (principal)

== ENCOUNTER → 2023-07-04 | Outpatient (CLI) | payer MEDICARE, BC, OTHER ==
[2023-07-04 13:54] LABS: BASO % 0.2 % (0.0-1.0); EOS % 0.6 % (0.0-3.0); HEMOGLOBIN 14.4 g/dl (12.0-15.5); LYMPH # 1.3 10^3/uL (1.5-5.0); LYMPH % 24.5 % (24.0-44.0); MEAN CORPUSCULAR HEMOGLOBIN 31.2 pg (27.0-33.0); MEAN CORPUSCULAR HGB CONC 32.7 g/dl (32.0-36.5); MEAN CORPUSCULAR VOLUME 95.2 fl (80.0-96.0); MONO # 0.9 10^3/uL (0.0-0.8); MONO % 15.7 % (2.0-8.0); NEUTROPHILS # 3.2 10^3/uL (1.5-8.5); NEUTROPHILS % 58.4 % (36.0-66.0); PLATELET COUNT, AUTOMATED 206 10^3/uL (150-450); RED BLOOD COUNT 4.62 10^6/uL (4.00-5.40); WHITE BLOOD COUNT 5.4 10^3/uL (4.0-10.0)
[2023-07-04 13:55] LABS: ALBUMIN 3.8 G/DL (3.2-5.2); ALKALINE PHOSPHATASE 86 U/L (46-116); ALT/SGPT 11 U/L (7.0-40); AST/SGOT 15 U/L (<34); BILIRUBIN,TOTAL 0.6 MG/DL (0.3-1.2); BLOOD UREA NITROGEN 12 MG/DL (9-23); CALCIUM LEVEL 9.3 MG/DL (8.3-10.6); CARBON DIOXIDE LEVEL 32 MMOL/L (20-31); CHLORIDE LEVEL 108 MMOL/L (98-107); CHOLESTEROL LEVEL 249 MG/DL (<200); CHOLESTEROL RISK RATIO 3.28 (<5); CREATININE FOR GFR 0.83 MG/DL (0.55-1.30); GLOMERULAR FILTRATION RATE > 60.0 (>32); GLUCOSE, FASTING 88 MG/DL (74-106); HDL CHOLESTEROL 75.8 MG/DL (>40); LDL CHOLESTEROL 138.2 MG/DL (<100); NON-HDL-C 173.2 MG/DL; POTASSIUM SERUM 4.6 MMOL/L (3.5-5.1); SODIUM LEVEL 142 MMOL/L (136-145); TOTAL PROTEIN 6.6 G/DL (5.7-8.2); TRIGLYCERIDES LEVEL 175 MG/DL (<150)
[2023-07-04 13:56] LABS: THYROID STIMULATING HORMONE 2.069 uIU/ML (0.55-4.78)
[2023-07-04 13:57] LABS: FREE T4 1.19 NG/DL (0.89-1.76)
== END ==
LOC: M PLALAB 11:05
PROVIDERS: ATTEND Physician Assistant
DX: G62.9 Polyneuropathy, unspecified (principal); E78.2 Mixed hyperlipidemia; E03.9 Hypothyroidism, unspecified; E55.9 Vitamin D deficiency, unspecified; I11.0 Hypertensive heart disease with heart failure; Z79.899 Other long term (current) drug therapy

== ENCOUNTER → 2023-08-28 | Outpatient (REF) | payer MEDICARE, BC, OTHER ==
[2023-08-28 14:27] LABS: BASO % 0.2 % (0.0-1.0); EOS % 0.7 % (0.0-3.0); HEMATOCRIT 45.5 % (36.0-47.0); HEMOGLOBIN 14.6 g/dl (12.0-15.5); LYMPH # 1.3 10^3/uL (1.5-5.0); LYMPH % 22.7 % (24.0-44.0); MEAN CORPUSCULAR HEMOGLOBIN 31.3 pg (27.0-33.0); MEAN CORPUSCULAR HGB CONC 32.1 g/dl (32.0-36.5); MEAN CORPUSCULAR VOLUME 97.4 fl (80.0-96.0); MONO % 17.1 % (2.0-8.0); NEUTROPHILS # 3.5 10^3/uL (1.5-8.5); PLATELET COUNT, AUTOMATED 169 10^3/uL (150-450); RED BLOOD COUNT 4.67 10^6/uL (4.00-5.40); WHITE BLOOD COUNT 5.9 10^3/uL (4.0-10.0)
[2023-08-28 14:37] LABS: THYROID STIMULATING HORMONE 2.451 uIU/ML (0.55-4.78); TOTAL 25(OH) VITAMIN D 35.1 NG/ML (20.0-100.0)
[2023-08-28 14:39] LABS: FREE T4 1.07 NG/DL (0.89-1.76)
[2023-08-28 14:40] LABS: ALBUMIN 3.7 G/DL (3.2-5.2); ALKALINE PHOSPHATASE 99 U/L (46-116); ALT/SGPT 33 U/L (7.0-40); AST/SGOT 19 U/L (<34); BILIRUBIN,TOTAL 0.6 MG/DL (0.3-1.2); BLOOD UREA NITROGEN 12 MG/DL (9-23); CALCIUM LEVEL 9.2 MG/DL (8.3-10.6); CARBON DIOXIDE LEVEL 30 MMOL/L (20-31); CHLORIDE LEVEL 110 MMOL/L (98-107); CHOLESTEROL LEVEL 149 MG/DL (<200); CHOLESTEROL RISK RATIO 1.98 (<5); CREATININE FOR GFR 0.91 MG/DL (0.55-1.30); GLOMERULAR FILTRATION RATE > 60.0 (>32); GLUCOSE, FASTING 98 MG/DL (74-106); HDL CHOLESTEROL 75.1 MG/DL (>40); LDL CHOLESTEROL 57.1 MG/DL (<100); NON-HDL-C 73.9 MG/DL; POTASSIUM SERUM 4.5 MMOL/L (3.5-5.1); SODIUM LEVEL 141 MMOL/L (136-145); TOTAL PROTEIN 6.5 G/DL (5.7-8.2); TRIGLYCERIDES LEVEL 84 MG/DL (<150)
[2023-08-28 15:11] LABS: HEMOGLOBIN A1c 5.2 % (4.0-6.0)
== END ==
LOC: M SFHCADAM 08:24
PROVIDERS: ATTEND Physician Assistant
DX: G62.9 Polyneuropathy, unspecified (principal); E78.2 Mixed hyperlipidemia; E03.9 Hypothyroidism, unspecified; E55.9 Vitamin D deficiency, unspecified; I10 Essential (primary) hypertension

== ENCOUNTER 2023-10-17 10:25 | Emergency (ER) | payer MEDICARE, BC, OTHER ==
[~2023-10-17] VITALS: Ht 149.9 cm; Wt 66.1 kg
[~2023-10-17 10:25] MED LIST changes: -GABA-282; +GABA-282 PO; -LEVO112T2; +LEVO112T2 PO
[2023-10-17 11:09] LABS: BASO % 0.2 % (0.0-1.0); EOS % 0.9 % (0.0-3.0); HEMATOCRIT 43.3 % (36.0-47.0); HEMOGLOBIN 14.4 g/dl (12.0-15.5); LYMPH # 1.2 10^3/uL (1.5-5.0); LYMPH % 26.6 % (24.0-44.0); MEAN CORPUSCULAR HEMOGLOBIN 30.6 pg (27.0-33.0); MEAN CORPUSCULAR HGB CONC 33.3 g/dl (32.0-36.5); MEAN CORPUSCULAR VOLUME 92.1 fl (80.0-96.0); MONO # 0.5 10^3/uL (0.0-0.8); MONO % 10.9 % (2.0-8.0); NEUTROPHILS # 2.7 10^3/uL (1.5-8.5); NEUTROPHILS % 61.2 % (36.0-66.0); PLATELET COUNT, AUTOMATED 180 10^3/uL (150-450); WHITE BLOOD COUNT 4.3 10^3/uL (4.0-10.0)
[2023-10-17 11:20] LABS: INR 0.97; PARTIAL THROMBOPLASTIN TIME 31.3 SECONDS (24.8-34.2); PROTHROMBIN TIME 12.6 SECONDS (12.5-14.5)
[2023-10-17] MEDS ORDERED: MED REC IN PROGRESS XX SCH (11:30)
[2023-10-17 11:34] LABS: CK-MB VALUE MASS < 1.0 NG/ML (<3.6)
[2023-10-17 11:36] LABS: BLOOD UREA NITROGEN 15 MG/DL (9-23); CALCIUM LEVEL 9.2 MG/DL (8.3-10.6); CARBON DIOXIDE LEVEL 29 MMOL/L (20-31); CHLORIDE LEVEL 108 MMOL/L (98-107); CREATININE FOR GFR 0.94 MG/DL (0.55-1.30); GLOMERULAR FILTRATION RATE > 60.0 (>32); GLUCOSE, FASTING 115 MG/DL (74-106); SODIUM LEVEL 142 MMOL/L (136-145)
[2023-10-17 11:39] LABS: CPK CREATINE PHOSPHOKINASE 46 U/L (34-145); MB/CK RELATIVE INDEX 2.17 (< OR =4)
[2023-10-17] MEDS: NS 500 ML IV ONE (12:06)
[2023-10-17] MEDS ORDERED: ALBU8.5H INH (12:46)
[2023-10-17] MEDS ORDERED: ONDA-83 PO (12:46)
[2023-10-17] MEDS ORDERED: NITR50CA34 PO (12:50)
[2023-10-17] MEDS ORDERED: TAMS1CAP17 PO (12:50)
[2023-10-17] MEDS ORDERED: AZEL1SPR3 NARES (12:50)
[2023-10-17] MEDS ORDERED: MELO7.5T35 PO (12:50)
[2023-10-17] MEDS ORDERED: HOME MED LIST COMPLETE! XX SCH (12:55)
[2023-10-17] MEDS: FUROSEMIDE 40MG/4ML VIAL IV ONE (14:11)
[2023-10-17 15:33] VITALS: BP 190/82
[2023-10-17] MEDS: hydrALAZINE 20MG/ML 1ML VIAL IV ONE (15:33)
[2023-10-17] MEDS ORDERED: CHLO125TA PO (17:01)
[2023-10-17 17:30] VITALS: BP 149/74; TEMP 97.7; O2SAT 98
== END 2023-10-17 17:40 | disposition home or self-care (01) ==
LOC: M ED 11:49
DX: R53.1 Weakness (principal); I16.0 Hypertensive urgency; I48.91 Unspecified atrial fibrillation; I25.119 Atherosclerotic heart disease of native coronary artery with unspecified angina pectoris; E78.5 Hyperlipidemia, unspecified; Z88.2 Allergy status to sulfonamides; Z88.8 Allergy status to other drugs, medicaments and biological substances; Z91.09 Other allergy status, other than to drugs and biological substances; Z79.1 Long term (current) use of non-steroidal anti-inflammatories (NSAID); Z79.51 Long term (current) use of inhaled steroids; Z79.899 Other long term (current) drug therapy
CPT/HCPCS: 70450; 70496; 70498; 71045; 80047; 80048; 82550; 82553; 84484; 85025; 85610; 85730; 86850; 86900; 86901; 93005; 93041; 94760; 96361; 96374; 96375; 97116; 97161; 99285; J0360; J1940

== ENCOUNTER → 2023-11-15 | Outpatient (CLI) | payer MEDICARE, BC ==
[~2023-11-15] MED LIST changes: +ALBU8.5H INH; +CHLO125TA PO; +MELO7.5T35 PO; +NITR50CA34 PO; +ONDA-83 PO; +TAMS1CAP17 PO
== END ==
LOC: M PLARAD 10:00
PROVIDERS: ATTEND Physician Assistant
DX: R51.9 Headache, unspecified (principal)

== ENCOUNTER → 2023-12-04 | Outpatient (REF) | payer MEDICARE, BC ==
[2023-12-04 13:11] LABS: APPEARANCE, URINE CLOUDY (CLEAR); BACTERIA, URINE AUTO 1+ (NEGATIVE); BILIRUBIN, URINE AUTO NEGATIVE (NEGATIVE); BLOOD, URINE BLOOD 1+ (NEGATIVE); COLOR, URINE YELLOW (YELLOW); GLUCOSE, URINE (UA) AUTO NEGATIVE (NEGATIVE); KETONE, URINE AUTO NEGATIVE (NEGATIVE); LEUKOCYTE ESTERASE, URINE AUTO 2+ (NEGATIVE); MUCUS, URINE SMALL (NEGATIVE); NITRITE, URINE AUTO POSITIVE (NEGATIVE); PROTEIN, URINE AUTO 2+ mg/dL (NEGATIVE); RBC, URINE AUTO 42 /HPF (0-3); SPECIFIC GRAVITY URINE AUTO 1.015 (1.002-1.035); SQUAMOUS EPITHELIAL CELL UR AU 11 /HPF (0-6); TRANSITIONAL EPITHELIAL AUTO 5 /HPF; WBC, URINE AUTO TNTC /HPF (0-3)
== END ==
LOC: M LABSMT 09:00
PROVIDERS: ATTEND Urology
DX: N39.0 Urinary tract infection, site not specified (principal)

== ENCOUNTER → 2024-01-28 | Outpatient (REF) | payer MEDICARE, BC ==
[2024-01-28 18:03] LABS: APPEARANCE, URINE CLEAR (CLEAR); BACTERIA, URINE AUTO NEGATIVE (NEGATIVE); BILIRUBIN, URINE AUTO NEGATIVE (NEGATIVE); BLOOD, URINE BLOOD NEGATIVE (NEGATIVE); COLOR, URINE YELLOW (YELLOW); GLUCOSE, URINE (UA) AUTO NEGATIVE (NEGATIVE); KETONE, URINE AUTO NEGATIVE (NEGATIVE); LEUKOCYTE ESTERASE, URINE AUTO NEGATIVE (NEGATIVE); NITRITE, URINE AUTO NEGATIVE (NEGATIVE); PROTEIN, URINE AUTO NEGATIVE (NEGATIVE); RBC, URINE AUTO 2 /HPF (0-3); SPECIFIC GRAVITY URINE AUTO 1.014 (1.002-1.035); SQUAMOUS EPITHELIAL CELL UR AU 3 /HPF (0-6); UROBILINOGEN, URINE AUTO 0.2 mg/dL (0.0-2.0); WBC, URINE AUTO 2 /HPF (0-3)
== END ==
LOC: M SFHCADAM 14:34
PROVIDERS: ATTEND Physician Assistant Medical
DX: Z01.818 Encounter for other preprocedural examination (principal); T85.890A Other specified complication of nervous system prosthetic devices, implants and grafts, initial encounter

== ENCOUNTER 2024-03-01 06:21 | Inpatient (IN) | payer MEDICARE, BC ==
[~2024-03-01] VITALS: Ht 149.9 cm; Wt 68.4 kg
[~2024-03-01 06:21] MED LIST changes: +GABA-1635 PO; -GABA800T4 PO
[2024-03-01 08:58] LABS: ALBUMIN 3.6 G/DL (3.2-5.2); BILIRUBIN,DIRECT 0.3 MG/DL (<0.4); BILIRUBIN,TOTAL 0.8 MG/DL (0.3-1.2); CALCIUM LEVEL 8.9 MG/DL (8.3-10.6); CREATININE FOR GFR 1.03 MG/DL (0.55-1.30); GLOMERULAR FILTRATION RATE 54.6 (>32); POTASSIUM SERUM 4.8 MMOL/L (3.5-5.1); TOTAL PROTEIN 6.6 G/DL (5.7-8.2)
[2024-03-01] MEDS ORDERED: ONDANSETRON 4MG ORAL DISINTEGRATING TAB PO ONE (09:20)
[2024-03-01 09:35] LABS: INR 1.17; PROTHROMBIN TIME 14.5 SECONDS (12.5-14.5)
[2024-03-01 09:44] LABS: BASO % 0.3 % (0.0-1.0); EOS # 0.1 10^3/uL (0.0-0.5); EOS % 1.3 % (0.0-3.0); HEMATOCRIT 37.7 % (36.0-47.0); HEMOGLOBIN 12.3 g/dl (12.0-15.5); LYMPH # 0.8 10^3/uL (1.5-5.0); LYMPH % 8.5 % (24.0-44.0); MEAN CORPUSCULAR HEMOGLOBIN 30.3 pg (27.0-33.0); MEAN CORPUSCULAR HGB CONC 32.6 g/dl (32.0-36.5); MEAN CORPUSCULAR VOLUME 92.9 fl (80.0-96.0); MONO # 0.8 10^3/uL (0.0-0.8); MONO % 8.4 % (2.0-8.0); NEUTROPHILS # 7.2 10^3/uL (1.5-8.5); NEUTROPHILS % 78.6 % (36.0-66.0); PLATELET COUNT, AUTOMATED 218 10^3/uL (150-450); RED BLOOD COUNT 4.06 10^6/uL (4.00-5.40); WHITE BLOOD COUNT 9.2 10^3/uL (4.0-10.0)
[2024-03-01] MEDS ORDERED: ISOVUE-370 76% 100ML VIAL As Ordered ONE (10:03)
[2024-03-01 10:13] LABS: RSV AMPLIFICATION NEGATIVE (NEGATIVE)
[2024-03-01 10:17] LABS: CK-MB VALUE MASS < 1.0 NG/ML (<3.6)
[2024-03-01 10:26] LABS: CPK CREATINE PHOSPHOKINASE 70 U/L (34-145); MB/CK RELATIVE INDEX 1.42 (< OR =4)
[2024-03-01] MEDS: ONDANSETRON 4MG 2ML VIAL IV ONE (10:49)
[2024-03-01] MEDS: MORPHINE 4 MG/ML 1ML VIAL IV ONE (10:50)
[2024-03-01] MEDS: PANTOPRAZOLE 40MG VIAL IV ONE (11:14)
[2024-03-01] MEDS: PIPERACILLIN/TAZOBACTAM SOD 3.375 GM in D5W MINI-BAG PLUS 50 ML IV ONE (11:22)
[2024-03-01] MEDS: SUCRALFATE SUSP 1GM/10ML UD PO ONE (11:39)
[2024-03-01] MEDS ORDERED: CHLO25TA PO (11:47)
[2024-03-01] MEDS ORDERED: NORV5TAB PO (11:49)
[2024-03-01] MEDS ORDERED: NAPR500T6 PO (11:49)
[2024-03-01] MEDS ORDERED: HOME MED LIST COMPLETE! XX SCH (11:55)
[2024-03-01] MEDS: FAMOTIDINE 20MG/2ML VIAL IVP ONE (12:40)
[2024-03-01] MEDS: ACETAMINOPHEN *IV* 1,000 MG in IV 1 EA IV ONE (12:40)
[2024-03-01 13:18] LABS: HEMATOCRIT 34.9 % (36.0-47.0); HEMOGLOBIN 11.3 g/dl (12.0-15.5)
[2024-03-01] MEDS ORDERED: ALBUTEROL 90 MCG/ACT 8GM HFA INHALER INH PRN (14:40)
[2024-03-01] MEDS ORDERED: AZELASTINE 137MCG NASAL SPY 30 ML (ASTELIN) PRN (14:40)
[2024-03-01] MEDS ORDERED: ACETAMINOPHEN *IV* 1,000 MG in IV 1 EA IV PRN (14:40)
[2024-03-01] MEDS: PANTOPRAZOLE SODIUM 40 MG in D5W MINI-BAG PLUS 50 ML IV SCH (15:34)
[2024-03-01] MEDS: NS 1,000 ML IV SCH (15:35)
[2024-03-01] MEDS ORDERED: NITROFURANTOIN 50 MG PO SCH (21:00)
[2024-03-01] MEDS: ROSUVASTATIN 10 MG TAB (CRESTOR) PO SCH (21:34)
[2024-03-01] MEDS: TAMSULOSIN 0.4 MG CAP PO SCH (21:34)
[2024-03-01] MEDS: GABAPENTIN 400MG CAP PO SCH (21:34)
[2024-03-01] MEDS: TELMISARTAN 20 MG TAB PO SCH (21:35)
[2024-03-01 23:00] VITALS: BP 124/61; TEMP 97.5; O2SAT 94
[2024-03-01] MEDS: ONDANSETRON 4MG TAB PO PRN (23:27)
[2024-03-02] VITALS (8 sets, daily range): BP systolic 82–126; BP diastolic 40–72; TEMP 97.3–98.1; O2SAT 84–96
[2024-03-02] MEDS: MORPHINE 2 MG/ML 1ML VIAL IV PRN (00:13)
[2024-03-02] MEDS: LEVOTHYROXINE 112MCG TABLET (0.112MG) PO SCH (05:49)
[2024-03-02 06:28] LABS: HEMATOCRIT 31.3 % (36.0-47.0); MEAN CORPUSCULAR HEMOGLOBIN 30.3 pg (27.0-33.0); MEAN CORPUSCULAR HGB CONC 31.9 g/dl (32.0-36.5); MEAN CORPUSCULAR VOLUME 94.8 fl (80.0-96.0); PLATELET COUNT, AUTOMATED 184 10^3/uL (150-450); WHITE BLOOD COUNT 8.4 10^3/uL (4.0-10.0)
[2024-03-02 07:12] LABS: ALBUMIN 2.8 G/DL (3.2-5.2); BILIRUBIN,TOTAL 0.7 MG/DL (0.3-1.2); CALCIUM LEVEL 8.2 MG/DL (8.3-10.6); CREATININE FOR GFR 1.15 MG/DL (0.55-1.30); GLOMERULAR FILTRATION RATE 48.1 (>32); POTASSIUM SERUM 3.7 MMOL/L (3.5-5.1); TOTAL PROTEIN 5.4 G/DL (5.7-8.2)
[2024-03-02] MEDS: aMILoride 5 MG TAB PO SCH (08:13)
[2024-03-02] MEDS: amLODIPine 5 MG TAB PO SCH (08:15)
[2024-03-02] MEDS: ISOSORBIDE MON. (IMDUR) 60MG XR TAB PO SCH (08:16)
[2024-03-02] MEDS ORDERED: NITROFURANTOIN (MACROBID) 100 MG CAP PO SCH (09:00)
[2024-03-02 20:39] LABS: HEMATOCRIT 26.9 % (36.0-47.0); HEMOGLOBIN 8.7 g/dl (12.0-15.5)
[2024-03-03 04:00] VITALS: BP 108/52; TEMP 98.2; O2SAT 97
[2024-03-03 09:04] LABS: HEMATOCRIT 25.2 % (36.0-47.0); MEAN CORPUSCULAR HEMOGLOBIN 30.5 pg (27.0-33.0); MEAN CORPUSCULAR HGB CONC 31.7 g/dl (32.0-36.5); MEAN CORPUSCULAR VOLUME 96.2 fl (80.0-96.0); PLATELET COUNT, AUTOMATED 138 10^3/uL (150-450); RED BLOOD COUNT 2.62 10^6/uL (4.00-5.40)
[2024-03-03] MEDS ORDERED: GENTAMICIN 80 MG in IV 1 EA IV SCH (09:05)
[2024-03-03 09:26] LABS: CALCIUM LEVEL 7.6 MG/DL (8.3-10.6); CREATININE FOR GFR 1.08 MG/DL (0.55-1.30); GLOMERULAR FILTRATION RATE 51.7 (>32); POTASSIUM SERUM 3.8 MMOL/L (3.5-5.1)
[2024-03-03] MEDS ORDERED: cefTRIAXone SOD 1GM VIAL IV SCH (09:40)
[2024-03-03] MEDS: cefTRIAXone SOD 1 GM in D5W MINI-BAG PLUS 50 ML IV SCH (10:20)
[2024-03-03] MEDS: SUCRALFATE SUSP 1GM/10ML UD PO SCH (11:55)
[2024-03-03 12:00] VITALS: BP 120/76; TEMP 97.6; O2SAT 96
[2024-03-03 15:42] LABS: HEMATOCRIT 25.8 % (36.0-47.0); HEMOGLOBIN 8.5 g/dl (12.0-15.5)
[2024-03-03 16:30] VITALS: O2SAT 85
[2024-03-03 20:03] VITALS: BP 113/60; TEMP 98.1; O2SAT 96
[2024-03-04] VITALS (15 sets, daily range): BP systolic 112–143; BP diastolic 53–81; TEMP 96.8–98.2; O2SAT 88–98
[2024-03-04 06:03] LABS: HEMOGLOBIN 7.8 g/dl (12.0-15.5); MEAN CORPUSCULAR HEMOGLOBIN 30.7 pg (27.0-33.0); MEAN CORPUSCULAR HGB CONC 32.5 g/dl (32.0-36.5); MEAN CORPUSCULAR VOLUME 94.5 fl (80.0-96.0); PLATELET COUNT, AUTOMATED 146 10^3/uL (150-450); RED BLOOD COUNT 2.54 10^6/uL (4.00-5.40); WHITE BLOOD COUNT 4.7 10^3/uL (4.0-10.0)
[2024-03-04 06:37] LABS: ALBUMIN 2.5 G/DL (3.2-5.2); ALKALINE PHOSPHATASE 66 U/L (46-116); ALT/SGPT < 9 U/L (7.0-40); AST/SGOT 11 U/L (<34); BILIRUBIN,TOTAL 0.4 MG/DL (0.3-1.2); BLOOD UREA NITROGEN 11 MG/DL (9-23); CALCIUM LEVEL 8.2 MG/DL (8.3-10.6); CARBON DIOXIDE LEVEL 26 MMOL/L (20-31); CHLORIDE LEVEL 114 MMOL/L (98-107); CREATININE FOR GFR 1.06 MG/DL (0.55-1.30); GLOMERULAR FILTRATION RATE 52.8 (>32); GLUCOSE, FASTING 107 MG/DL (74-106); POTASSIUM SERUM 3.8 MMOL/L (3.5-5.1); SODIUM LEVEL 143 MMOL/L (136-145); TOTAL PROTEIN 4.8 G/DL (5.7-8.2)
[2024-03-04 07:35] LABS: ATYPICAL LYMPH 3 % (0-5); EOSINOPHILS 3 % (0-3); HYPOCHROMASIA 1+; LYMPHOCYTES 23 % (16-44); METAMYELOCYTES 2 % (0-0); MONOCYTES 5 % (0-5); MYELOCYTES 1 % (0-0); NEUTROPHILS 59 % (28-66)
[2024-03-04 07:36] LABS: PLATELET ESTIMATE NORMAL (NORMAL)
[2024-03-04] MEDS: NS 1,000 ML IV SCH (10:55)
[2024-03-04] MEDS ORDERED: diphenhydrAMINE 25MG CAP PO PRN (10:55)
[2024-03-04] MEDS: FUROSEMIDE 20MG/2ML VIAL IV ONE (11:44)
[2024-03-04] MEDS: ACETAMINOPHEN 500 MG TAB PO PRN (16:29)
[2024-03-04 18:47] LABS: HEMATOCRIT 34.3 % (36.0-47.0)
[2024-03-04 18:56] LABS: HEMOGLOBIN 11.8 g/dl (12.0-15.5)
[2024-03-05] VITALS (14 sets, daily range): BP systolic 107–137; BP diastolic 47–80; TEMP 96.8–98.2; O2SAT 87–97
[2024-03-05] MEDS: RAMELTEON 8 MG TAB (ROZEREM) PO PRN (00:42)
[2024-03-05 06:02] LABS: HEMATOCRIT 35.8 % (36.0-47.0); HEMOGLOBIN 12.1 g/dl (12.0-15.5); MEAN CORPUSCULAR HEMOGLOBIN 30.9 pg (27.0-33.0); MEAN CORPUSCULAR HGB CONC 33.8 g/dl (32.0-36.5); MEAN CORPUSCULAR VOLUME 91.6 fl (80.0-96.0); PLATELET COUNT, AUTOMATED 174 10^3/uL (150-450); RED BLOOD COUNT 3.91 10^6/uL (4.00-5.40); WHITE BLOOD COUNT 6.8 10^3/uL (4.0-10.0)
[2024-03-05 06:26] LABS: CALCIUM LEVEL 8.8 MG/DL (8.3-10.6); CREATININE FOR GFR 1.16 MG/DL (0.55-1.30); GLOMERULAR FILTRATION RATE 47.6 (>32); POTASSIUM SERUM 3.7 MMOL/L (3.5-5.1)
[2024-03-05] MEDS: NORCO, ANEXSIA 5/325MG TABLET (HYDROcodone/ACETAMINOPHEN) PO PRN (15:17)
[2024-03-05] MEDS: METOCLOPRAMIDE INJ 10MG/2ML VIAL IV ONE (20:55)
[2024-03-06 02:57] VITALS: O2SAT 97
[2024-03-06 04:00] VITALS: BP 111/63; TEMP 98.2; O2SAT 95
[2024-03-06 05:47] LABS: BASO % 0.5 % (0.0-1.0); EOS # 0.2 10^3/uL (0.0-0.5); EOS % 3.6 % (0.0-3.0); HEMATOCRIT 33.1 % (36.0-47.0); HEMOGLOBIN 11.3 g/dl (12.0-15.5); LYMPH # 1.3 10^3/uL (1.5-5.0); MEAN CORPUSCULAR HEMOGLOBIN 31.4 pg (27.0-33.0); MEAN CORPUSCULAR HGB CONC 34.1 g/dl (32.0-36.5); MEAN CORPUSCULAR VOLUME 91.9 fl (80.0-96.0); MONO # 0.9 10^3/uL (0.0-0.8); MONO % 13.4 % (2.0-8.0); NEUTROPHILS # 3.6 10^3/uL (1.5-8.5); PLATELET COUNT, AUTOMATED 154 10^3/uL (150-450); WHITE BLOOD COUNT 6.4 10^3/uL (4.0-10.0)
[2024-03-06 06:20] LABS: CALCIUM LEVEL 8.7 MG/DL (8.3-10.6); CREATININE FOR GFR 1.04 MG/DL (0.55-1.30); MAGNESIUM LEVEL 1.9 MG/DL (1.8-2.4); POTASSIUM SERUM 3.4 MMOL/L (3.5-5.1)
[2024-03-06 08:00] VITALS: BP 112/62; TEMP 97.7; O2SAT 95
[2024-03-06] MEDS: POTASSIUM CHLORIDE 10MEQ SR TABLET PO ONE (08:24)
[2024-03-06 08:26] VITALS: BP 113/64
[2024-03-06] MEDS ORDERED: OMEP40CA4 PO (10:58)
[2024-03-06] MEDS ORDERED: CARA1TAB6 PO (10:58)
[2024-03-06] MEDS ORDERED: CEFD1CAP9 PO (10:59)
[2024-03-06 12:00] VITALS: BP 109/62; TEMP 97; O2SAT 94
[2024-03-06] MEDS ORDERED: MIRA3350 PO (14:03)
== END 2024-03-06 14:01 | disposition home or self-care (01) | DRG 812 ==
LOC: M ED 06:21 → EEVIPCON 14:37 → M ED INP 14:37 → M MSPAV 23:00
PROVIDERS: ADMIT Family Medicine; ATTEND Internal Medicine
PROC: 0DB68ZX Excision of Stomach, Via Natural or Artificial Opening Endoscopic, Diagnostic (ICD-10-PCS; principal; 2024-03-05 12:15)
DX: D62 Acute posthemorrhagic anemia (principal); I50.42 Chronic combined systolic (congestive) and diastolic (congestive) heart failure; N39.0 Urinary tract infection, site not specified; K92.0 Hematemesis; K29.70 Gastritis, unspecified, without bleeding; G47.33 Obstructive sleep apnea (adult) (pediatric); I25.10 Atherosclerotic heart disease of native coronary artery without angina pectoris; I11.0 Hypertensive heart disease with heart failure; E78.2 Mixed hyperlipidemia; K44.9 Diaphragmatic hernia without obstruction or gangrene; K21.9 Gastro-esophageal reflux disease without esophagitis; G89.29 Other chronic pain; K57.90 Diverticulosis of intestine, part unspecified, without perforation or abscess without bleeding; G40.909 Epilepsy, unspecified, not intractable, without status epilepticus; M54.9 Dorsalgia, unspecified; G62.9 Polyneuropathy, unspecified; M81.0 Age-related osteoporosis without current pathological fracture; B96.20 Unspecified Escherichia coli [E. coli] as the cause of diseases classified elsewhere; E55.9 Vitamin D deficiency, unspecified; E03.9 Hypothyroidism, unspecified; Z66 Do not resuscitate; Z86.718 Personal history of other venous thrombosis and embolism; Z85.828 Personal history of other malignant neoplasm of skin; Z98.41 Cataract extraction status, right eye; Z98.42 Cataract extraction status, left eye; Z96.1 Presence of intraocular lens; Z79.82 Long term (current) use of aspirin; Z79.890 Hormone replacement therapy; Z79.899 Other long term (current) drug therapy; Z86.16 Personal history of COVID-19

== ENCOUNTER → 2024-03-10 | Outpatient (CLI) | payer MEDICARE, BC ==
[~2024-03-10] MED LIST changes: +CARA1TAB6 PO; +CEFD1CAP9 PO; +CHLO25TA PO; +GASTROGRAFIN SOLUTION 30ML As Ordered ONE; +ISOVUE-370 76% 100ML VIAL As Ordered ONE; +MIRA3350 PO; +NAPR500T6 PO; +NORV5TAB PO; +OMEP40CA4 PO
[2024-03-10 12:10] LABS: BASO % 0.4 % (0.0-1.0); EOS # 0.2 10^3/uL (0.0-0.5); EOS % 1.5 % (0.0-3.0); HEMATOCRIT 45.5 % (36.0-47.0); HEMOGLOBIN 14.7 g/dl (12.0-15.5); MEAN CORPUSCULAR HEMOGLOBIN 30.2 pg (27.0-33.0); MEAN CORPUSCULAR HGB CONC 32.3 g/dl (32.0-36.5); MEAN CORPUSCULAR VOLUME 93.4 fl (80.0-96.0); MONO # 1.3 10^3/uL (0.0-0.8); MONO % 12.6 % (2.0-8.0); NEUTROPHILS # 7.5 10^3/uL (1.5-8.5); NEUTROPHILS % 73.4 % (36.0-66.0); PLATELET COUNT, AUTOMATED 198 10^3/uL (150-450); RED BLOOD COUNT 4.87 10^6/uL (4.00-5.40); WHITE BLOOD COUNT 10.3 10^3/uL (4.0-10.0)
[2024-03-10 12:33] LABS: CALCIUM LEVEL 9.3 MG/DL (8.3-10.6); CREATININE FOR GFR 0.99 MG/DL (0.55-1.30); GLOMERULAR FILTRATION RATE 57.2 (>32); POTASSIUM SERUM 4.6 MMOL/L (3.5-5.1)
== END ==
LOC: M RAD 11:24
PROVIDERS: ATTEND Physician Assistant
DX: K92.2 Gastrointestinal hemorrhage, unspecified (principal); R10.32 Left lower quadrant pain; D62 Acute posthemorrhagic anemia; K57.32 Diverticulitis of large intestine without perforation or abscess without bleeding; K44.9 Diaphragmatic hernia without obstruction or gangrene
CPT/HCPCS: 36415; 74178; 80048; 85025; Q9963; Q9967

== ENCOUNTER → 2024-03-14 | Outpatient (CLI) | payer MEDICARE, BC ==
[~2024-03-14] MED LIST changes: -GASTROGRAFIN SOLUTION 30ML As Ordered ONE; -ISOVUE-370 76% 100ML VIAL As Ordered ONE
[2024-03-14 11:00] LABS: BASO % 0.3 % (0.0-1.0); EOS # 0.2 10^3/uL (0.0-0.5); EOS % 2.8 % (0.0-3.0); HEMATOCRIT 39.6 % (36.0-47.0); LYMPH # 0.9 10^3/uL (1.5-5.0); LYMPH % 15.6 % (24.0-44.0); MEAN CORPUSCULAR HEMOGLOBIN 31.1 pg (27.0-33.0); MEAN CORPUSCULAR HGB CONC 32.8 g/dl (32.0-36.5); MEAN CORPUSCULAR VOLUME 94.7 fl (80.0-96.0); MONO # 1.2 10^3/uL (0.0-0.8); MONO % 19.9 % (2.0-8.0); NEUTROPHILS # 3.6 10^3/uL (1.5-8.5); NEUTROPHILS % 60.6 % (36.0-66.0); PLATELET COUNT, AUTOMATED 180 10^3/uL (150-450); RED BLOOD COUNT 4.18 10^6/uL (4.00-5.40)
[2024-03-14 11:29] LABS: ALBUMIN 3.4 G/DL (3.2-5.2); BILIRUBIN,TOTAL 0.6 MG/DL (0.3-1.2); CREATININE FOR GFR 1.11 MG/DL (0.55-1.30); GLOMERULAR FILTRATION RATE 50.1 (>32); POTASSIUM SERUM 4.3 MMOL/L (3.5-5.1); TOTAL PROTEIN 6.3 G/DL (5.7-8.2)
== END ==
LOC: M LAB 10:16
PROVIDERS: ATTEND Physician Assistant
DX: D62 Acute posthemorrhagic anemia (principal); K92.2 Gastrointestinal hemorrhage, unspecified; K57.92 Diverticulitis of intestine, part unspecified, without perforation or abscess without bleeding

== ENCOUNTER → 2024-03-17 | Outpatient (REF) | payer MEDICARE, BC ==
[2024-03-17 17:13] LABS: BASO % 0.3 % (0.0-1.0); EOS # 0.1 10^3/uL (0.0-0.5); EOS % 1.9 % (0.0-3.0); HEMATOCRIT 39.5 % (36.0-47.0); HEMOGLOBIN 12.8 g/dl (12.0-15.5); LYMPH % 16.6 % (24.0-44.0); MEAN CORPUSCULAR HEMOGLOBIN 30.8 pg (27.0-33.0); MEAN CORPUSCULAR HGB CONC 32.4 g/dl (32.0-36.5); MEAN CORPUSCULAR VOLUME 95.2 fl (80.0-96.0); MONO # 1.1 10^3/uL (0.0-0.8); MONO % 18.4 % (2.0-8.0); NEUTROPHILS # 3.6 10^3/uL (1.5-8.5); NEUTROPHILS % 62.1 % (36.0-66.0); PLATELET COUNT, AUTOMATED 217 10^3/uL (150-450); RED BLOOD COUNT 4.15 10^6/uL (4.00-5.40); WHITE BLOOD COUNT 5.8 10^3/uL (4.0-10.0)
[2024-03-17 17:37] LABS: ALBUMIN 3.4 G/DL (3.2-5.2); BILIRUBIN,TOTAL 0.4 MG/DL (0.3-1.2); CALCIUM LEVEL 8.7 MG/DL (8.3-10.6); CREATININE FOR GFR 0.96 MG/DL (0.55-1.30); GLOMERULAR FILTRATION RATE 59.2 (>32); POTASSIUM SERUM 4.9 MMOL/L (3.5-5.1); TOTAL PROTEIN 6.4 G/DL (5.7-8.2)
== END ==
LOC: M SFHCADAM 13:57
PROVIDERS: ATTEND Physician Assistant
DX: D62 Acute posthemorrhagic anemia (principal); K92.2 Gastrointestinal hemorrhage, unspecified; N39.0 Urinary tract infection, site not specified; G47.34 Idiopathic sleep related nonobstructive alveolar hypoventilation; R11.0 Nausea; R10.32 Left lower quadrant pain; K57.92 Diverticulitis of intestine, part unspecified, without perforation or abscess without bleeding

== ENCOUNTER → 2024-03-26 | Outpatient (CLI) | payer MEDICARE, BC ==
[2024-03-26 14:37] LABS: BASO % 0.7 % (0.0-1.0); EOS # 0.1 10^3/uL (0.0-0.5); EOS % 3.1 % (0.0-3.0); HEMATOCRIT 40.1 % (36.0-47.0); HEMOGLOBIN 12.9 g/dl (12.0-15.5); LYMPH # 1.1 10^3/uL (1.5-5.0); LYMPH % 25.1 % (24.0-44.0); MEAN CORPUSCULAR HEMOGLOBIN 30.6 pg (27.0-33.0); MEAN CORPUSCULAR HGB CONC 32.2 g/dl (32.0-36.5); MEAN CORPUSCULAR VOLUME 95.2 fl (80.0-96.0); MONO # 0.6 10^3/uL (0.0-0.8); MONO % 14.8 % (2.0-8.0); NEUTROPHILS # 2.4 10^3/uL (1.5-8.5); NEUTROPHILS % 55.8 % (36.0-66.0); PLATELET COUNT, AUTOMATED 214 10^3/uL (150-450); RED BLOOD COUNT 4.21 10^6/uL (4.00-5.40); WHITE BLOOD COUNT 4.3 10^3/uL (4.0-10.0)
[2024-03-26 15:11] LABS: ALBUMIN 3.4 G/DL (3.2-5.2); BILIRUBIN,TOTAL 0.6 MG/DL (0.3-1.2); CREATININE FOR GFR 1.04 MG/DL (0.55-1.30); POTASSIUM SERUM 4.9 MMOL/L (3.5-5.1); TOTAL PROTEIN 6.5 G/DL (5.7-8.2)
== END ==
LOC: M PLALAB 11:19
PROVIDERS: ATTEND Physician Assistant
DX: K57.92 Diverticulitis of intestine, part unspecified, without perforation or abscess without bleeding (principal); K92.2 Gastrointestinal hemorrhage, unspecified

== ENCOUNTER → 2024-03-28 | Outpatient (REF) | payer MEDICARE, BC ==
[~2024-03-28] MED LIST changes: +GABA-1172 PO; -GABA-282 PO; +NAPR-1405 PO; -NAPR500T6 PO
== END ==
LOC: M SFHCADAM 10:56
PROVIDERS: ATTEND Physician Assistant
DX: R19.7 Diarrhea, unspecified (principal); R10.816 Epigastric abdominal tenderness

== ENCOUNTER → 2024-05-07 | Outpatient (CLI) | payer MEDICARE, BC ==
[~2024-05-07] MED LIST changes: +E-Z-PAQUE 96% w/w SUSP 176GM BTL As Ordered ONE
== END ==
LOC: M RAD 08:35
PROVIDERS: ATTEND Surgery
DX: K44.9 Diaphragmatic hernia without obstruction or gangrene (principal)

== ENCOUNTER 2024-06-06 09:05 | Day surgery (SDC) | payer MEDICARE, BC ==
[~2024-06-06] VITALS: Ht 152.4 cm; Wt 63.8 kg
[~2024-06-06 09:05] MED LIST changes: -E-Z-PAQUE 96% w/w SUSP 176GM BTL As Ordered ONE; +IBAN150T10 PO; -IBAN150T6 PO; +OMEP40CA5 PO
[2024-06-06 12:08] VITALS: BP 184/104; TEMP 97.2; O2SAT 99
[2024-06-19] MEDS ORDERED: MYRB50TA PO (08:08)
== END 2024-06-06 12:20 | disposition home or self-care (01) ==
LOC: M OPP 09:05
PROVIDERS: ATTEND Surgery
DX: K44.9 Diaphragmatic hernia without obstruction or gangrene (principal)

== ENCOUNTER → 2024-06-11 | Outpatient (REF) | payer MEDICARE, BC, OTHER ==
[2024-06-11 14:49] LABS: APPEARANCE, URINE HAZY (CLEAR); BACTERIA, URINE AUTO 1+ (NEGATIVE); BILIRUBIN, URINE AUTO NEGATIVE (NEGATIVE); BLOOD, URINE BLOOD NEGATIVE (NEGATIVE); COLOR, URINE YELLOW (YELLOW); GLUCOSE, URINE (UA) AUTO NEGATIVE (NEGATIVE); KETONE, URINE AUTO NEGATIVE (NEGATIVE); LEUKOCYTE ESTERASE, URINE AUTO 3+ (NEGATIVE); NITRITE, URINE AUTO NEGATIVE (NEGATIVE); PROTEIN, URINE AUTO NEGATIVE (NEGATIVE); RBC, URINE AUTO 1 /HPF (0-3); SPECIFIC GRAVITY URINE AUTO 1.011 (1.002-1.035); SQUAMOUS EPITHELIAL CELL UR AU 8 /HPF (0-6); UROBILINOGEN, URINE AUTO 0.2 mg/dL (0.0-2.0); WBC, URINE AUTO 23 /HPF (0-3)
== END ==
LOC: M SMT 12:59
PROVIDERS: ATTEND Urology
DX: Z87.440 Personal history of urinary (tract) infections (principal); Z79.899 Other long term (current) drug therapy

== ENCOUNTER → 2024-07-03 | Day surgery (SDC) | payer MEDICARE, BC ==
[~2024-07-03] VITALS: Ht 152.4 cm; Wt 62.7 kg
[~2024-07-03] MED LIST changes: +LIDOCAINE 2% 100MG/5ML SDV (FOR ANES.) As Ordered ONE; +MYRB50TA PO; +propofoL 200 MG/20 ML VIAL As Ordered ONE
[2024-07-03 08:44] VITALS: BP 180/84; TEMP 96.3; O2SAT 96
== END | disposition home or self-care (01) ==
LOC: M OPP 08:09
PROVIDERS: ATTEND Surgery
DX: K57.30 Diverticulosis of large intestine without perforation or abscess without bleeding (principal); Z53.09 Procedure and treatment not carried out because of other contraindication

== ENCOUNTER → 2024-07-04 | Outpatient (CLI) | payer MEDICARE, BC ==
[~2024-07-04] MED LIST changes: -LIDOCAINE 2% 100MG/5ML SDV (FOR ANES.) As Ordered ONE; -propofoL 200 MG/20 ML VIAL As Ordered ONE
[2024-07-04 13:41] LABS: CALCIUM LEVEL 9.8 MG/DL (8.3-10.6); CREATININE FOR GFR 0.95 MG/DL (0.55-1.30); GLOMERULAR FILTRATION RATE 59.8 (>32); MAGNESIUM LEVEL 2.5 MG/DL (1.8-2.4); POTASSIUM SERUM 4.2 MMOL/L (3.5-5.1)
== END ==
LOC: M PLALAB 09:22
PROVIDERS: ATTEND Physician Assistant
DX: I25.5 Ischemic cardiomyopathy (principal)

== ENCOUNTER → 2024-09-04 | Outpatient (CLI) | payer MEDICARE, BC | LOC: M CARPUL 16:05 | PROVIDERS: ATTEND Physician Assistant | DX: R06.02 Shortness of breath (principal); I25.5 Ischemic cardiomyopathy; Z12.31 Encounter for screening mammogram for malignant neoplasm of breast; M81.0 Age-related osteoporosis without current pathological fracture; R92.313 Mammographic fatty tissue density, bilateral breasts ==

== ENCOUNTER → 2024-09-04 | Outpatient (CLI) | payer MEDICARE, BC | LOC: M WHC 12:47 | PROVIDERS: ATTEND Physician Assistant | DX: Z12.31 Encounter for screening mammogram for malignant neoplasm of breast (principal); M81.0 Age-related osteoporosis without current pathological fracture; R92.313 Mammographic fatty tissue density, bilateral breasts ==

== ENCOUNTER → 2024-09-16 | Outpatient (CLI) | payer MEDICARE, BC | LOC: M WHC 10:46 | PROVIDERS: ATTEND Physician Assistant | DX: Z12.31 Encounter for screening mammogram for malignant neoplasm of breast (principal); N64.9 Disorder of breast, unspecified | CPT/HCPCS: 77065; G0279 ==

== ENCOUNTER → 2024-10-15 | Outpatient (REF) | payer MEDICARE, BC ==
[2024-10-15 13:16] LABS: BASO % 0.4 % (0.0-1.0); EOS % 0.4 % (0.0-3.0); HEMATOCRIT 45.9 % (36.0-47.0); HEMOGLOBIN 14.5 g/dl (12.0-15.5); LYMPH % 15.3 % (24.0-44.0); MEAN CORPUSCULAR HEMOGLOBIN 29.8 pg (27.0-33.0); MEAN CORPUSCULAR HGB CONC 31.6 g/dl (32.0-36.5); MEAN CORPUSCULAR VOLUME 94.4 fl (80.0-96.0); MONO # 1.3 10^3/uL (0.0-0.8); MONO % 19.1 % (2.0-8.0); NEUTROPHILS # 4.3 10^3/uL (1.5-8.5); NEUTROPHILS % 63.9 % (36.0-66.0); PLATELET COUNT, AUTOMATED 253 10^3/uL (150-450); RED BLOOD COUNT 4.86 10^6/uL (4.00-5.40); WHITE BLOOD COUNT 6.7 10^3/uL (4.0-10.0)
[2024-10-15 13:34] LABS: ERYTHROCYTE SEDIMENTATION RATE 29 mm/hr (0-30)
[2024-10-15 13:39] LABS: URIC ACID 4.7 MG/DL (3.1-7.8)
[2024-10-15 13:41] LABS: CREATININE FOR GFR 0.88 MG/DL (0.55-1.30); GLOMERULAR FILTRATION RATE 65.2 (>32); POTASSIUM SERUM 4.2 MMOL/L (3.5-5.1)
[2024-10-15 13:43] LABS: C REACTIVE PROTEIN QUANTITATIV 5.09 MG/DL (<1.0)
== END ==
LOC: M SFHCADAM 10:05
PROVIDERS: ATTEND Physician Assistant
DX: M79.605 Pain in left leg (principal); M25.462 Effusion, left knee

== ENCOUNTER → 2024-10-15 | Outpatient (CLI) | payer MEDICARE, BC | LOC: M RAD 13:00 | PROVIDERS: ATTEND Physician Assistant | DX: M79.605 Pain in left leg (principal) ==

== ENCOUNTER → 2024-10-15 | Outpatient (CLI) | payer MEDICARE, BC | LOC: M ADAMS 10:06 | PROVIDERS: ATTEND Physician Assistant | DX: M79.605 Pain in left leg (principal) ==

== ENCOUNTER → 2024-10-24 | Outpatient (CLI) | payer MEDICARE, BC | LOC: M PLALAB 09:58 | PROVIDERS: ATTEND Orthopaedic Surgery | DX: M25.562 Pain in left knee (principal) ==

== ENCOUNTER → 2024-11-18 | Outpatient (CLI) | payer MEDICARE, BC ==
[~2024-11-18] MED LIST changes: +OXYC-517 PO
[2024-11-18 13:49] LABS: BASO % 0.5 % (0.0-1.0); EOS % 0.5 % (0.0-3.0); HEMATOCRIT 41.8 % (36.0-47.0); HEMOGLOBIN 12.9 g/dl (12.0-15.5); LYMPH # 1.1 10^3/uL (1.5-5.0); MEAN CORPUSCULAR HEMOGLOBIN 29.5 pg (27.0-33.0); MEAN CORPUSCULAR HGB CONC 30.9 g/dl (32.0-36.5); MEAN CORPUSCULAR VOLUME 95.7 fl (80.0-96.0); MONO # 0.6 10^3/uL (0.0-0.8); MONO % 9.9 % (2.0-8.0); NEUTROPHILS # 4.3 10^3/uL (1.5-8.5); NEUTROPHILS % 70.4 % (36.0-66.0); PLATELET COUNT, AUTOMATED 306 10^3/uL (150-450); RED BLOOD COUNT 4.37 10^6/uL (4.00-5.40); WHITE BLOOD COUNT 6.1 10^3/uL (4.0-10.0)
[2024-11-18 13:50] LABS: CALCIUM LEVEL 9.3 MG/DL (8.3-10.6); CREATININE FOR GFR 0.88 MG/DL (0.55-1.30); GLOMERULAR FILTRATION RATE 65.2 (>32); POTASSIUM SERUM 4.7 MMOL/L (3.5-5.1)
== END ==
LOC: M PLALAB 10:03
PROVIDERS: ATTEND Physician Assistant
DX: T14.8XXA Other injury of unspecified body region, initial encounter (principal)

== ENCOUNTER → 2025-01-26 | Outpatient (CLI) | payer MEDICARE, BC ==
[~2025-01-26] MED LIST changes: +AMIT10TA11 PO; -AMIT10TA7 PO
== END ==
LOC: M ADAMS 12:56
PROVIDERS: ATTEND Nurse Practitioner Family
DX: M47.27 Other spondylosis with radiculopathy, lumbosacral region (principal)

== ENCOUNTER → 2025-01-30 | Outpatient (CLI) | payer MEDICARE, BC | LOC: M PLALAB 09:20 | PROVIDERS: ATTEND Nurse Practitioner Family | DX: Z79.891 Long term (current) use of opiate analgesic (principal) ==

== ENCOUNTER → 2025-02-13 | Outpatient (CLI) | payer MEDICARE, BC | LOC: M PLARAD 09:28 | PROVIDERS: ATTEND Physician Assistant | DX: R29.818 Other symptoms and signs involving the nervous system (principal); Z82.0 Family history of epilepsy and other diseases of the nervous system; M47.812 Spondylosis without myelopathy or radiculopathy, cervical region ==

== ENCOUNTER 2025-02-25 12:09 | Emergency (ER) | payer MEDICARE, BC ==
[~2025-02-25] VITALS: Ht 152.4 cm; Wt 62.1 kg
[~2025-02-25 12:09] MED LIST changes: +METH-1100 PO; -METH-855 PO
[2025-02-25 13:22] LABS: BASO # 0.0 10^3/uL (0.0-0.2); BASO % 0.7 % (0.0-1.0); EOS # 0.1 10^3/uL (0.0-0.5); EOS % 1.6 % (0.0-3.0); LYMPH # 1.3 10^3/uL (1.5-5.0); LYMPH % 29.9 % (24.0-44.0); MONO # 0.5 10^3/uL (0.0-0.8); MONO % 12.2 % (2.0-8.0); NEUTROPHILS # 2.4 10^3/uL (1.5-8.5); NEUTROPHILS % 55.1 % (36.0-66.0); PLATELET COUNT, AUTOMATED 216 10^3/uL (150-450)
[2025-02-25 13:38] LABS: ALT/SGPT 15 U/L (7.0-40); AST/SGOT 20 U/L (<34); CALCIUM LEVEL 9.1 MG/DL (8.3-10.6); CARBON DIOXIDE LEVEL 29 MMOL/L (20-31); CHLORIDE LEVEL 103 MMOL/L (98-107); CK-MB VALUE MASS < 1.0 NG/ML (<3.6); CPK CREATINE PHOSPHOKINASE 30 U/L (34-145); CREATININE FOR GFR 0.94 MG/DL (0.55-1.30); GLOMERULAR FILTRATION RATE 60.2 (>32); INR 0.94; POTASSIUM SERUM 3.7 MMOL/L (3.5-5.1); SODIUM LEVEL 141 MMOL/L (136-145)
[2025-02-25 13:40] LABS: FREE T4 1.38 NG/DL (0.89-1.76)
[2025-02-25] MEDS: PANTOPRAZOLE 40MG VIAL IV ONE (13:41)
[2025-02-25] MEDS: ASPIRIN 81 MG CHEWABLE TABLET PO ONE (13:41)
[2025-02-25] MEDS: NITROGLYCERIN 0.4 MG SUBL TABLET SL PRN (13:42)
[2025-02-25] MEDS ORDERED: ISOVUE-370 76% 100 ML VIAL As Ordered ONE (13:55)
[2025-02-25 14:28] LABS: CK-MB VALUE MASS < 1.0 NG/ML (<3.6)
[2025-02-25 14:34] LABS: CPK CREATINE PHOSPHOKINASE 22 U/L (34-145)
[2025-02-25 14:36] VITALS: BP 191/88
[2025-02-25] MEDS ORDERED: VASC1CAP2 PO (15:31)
[2025-02-25] MEDS ORDERED: SOLI10TA PO (15:31)
[2025-02-25] MEDS ORDERED: CHLO125TA PO (15:31)
[2025-02-25] MEDS ORDERED: AMLO1TAB24 PO (15:31)
[2025-02-25] MEDS ORDERED: HOME MED LIST COMPLETE! XX SCH (15:35)
[2025-02-25 15:55] VITALS: BP 168/88; TEMP 96.6; O2SAT 98
== END 2025-02-25 16:13 | disposition home or self-care (01) ==
LOC: M ED 12:09
DX: R07.9 Chest pain, unspecified (principal); K21.9 Gastro-esophageal reflux disease without esophagitis; Z86.79 Personal history of other diseases of the circulatory system; I70.0 Atherosclerosis of aorta; Z91.048 Other nonmedicinal substance allergy status; Z88.6 Allergy status to analgesic agent; Z88.2 Allergy status to sulfonamides; Z88.8 Allergy status to other drugs, medicaments and biological substances; Z79.1 Long term (current) use of non-steroidal anti-inflammatories (NSAID); Z79.891 Long term (current) use of opiate analgesic; Z79.890 Hormone replacement therapy; Z79.82 Long term (current) use of aspirin
CPT/HCPCS: 71275; 74177; 80048; 80076; 82550; 82553; 83690; 84439; 84443; 84484; 85025; 85610; 85730; 93005; 93041; 94760; 96374; 99285; J2470; Q9967

== ENCOUNTER → 2025-03-26 | Outpatient (REF) | payer MEDICARE, BC ==
[~2025-03-26] MED LIST changes: +AMLO1TAB24 PO; +SOLI10TA PO; +VASC1CAP2 PO
[2025-03-26 17:55] LABS: APPEARANCE, URINE CLOUDY (CLEAR); BACTERIA, URINE AUTO 2+ (NEGATIVE); BILIRUBIN, URINE AUTO NEGATIVE (NEGATIVE); BLOOD, URINE BLOOD 1+ (NEGATIVE); CALCIUM OXALATE CRYSTALS LARGE; GLUCOSE, URINE (UA) AUTO NEGATIVE (NEGATIVE); KETONE, URINE AUTO TRACE mg/dL (NEGATIVE); LEUKOCYTE ESTERASE, URINE AUTO 2+ (NEGATIVE); MUCUS, URINE SMALL (NEGATIVE); NITRITE, URINE AUTO POSITIVE (NEGATIVE); PROTEIN, URINE AUTO 1+ mg/dL (NEGATIVE); RBC, URINE AUTO 10 /HPF (0-3); SPECIFIC GRAVITY URINE AUTO 1.025 (1.002-1.035); SQUAMOUS EPITHELIAL CELL UR AU 10 /HPF (0-6); UROBILINOGEN, URINE AUTO 0.2 mg/dL (0.0-2.0); WBC, URINE AUTO TNTC /HPF (0-3)
== END ==
LOC: M SMT 16:58
PROVIDERS: ATTEND Urology
DX: N39.0 Urinary tract infection, site not specified (principal)

== ENCOUNTER → 2025-04-01 | Outpatient (CLI) | payer MEDICARE, BC ==
[2025-04-01 12:57] LABS: BASO # 0.0 10^3/uL (0.0-0.2); BASO % 0.2 % (0.0-1.0); EOS # 0.0 10^3/uL (0.0-0.5); EOS % 0.4 % (0.0-3.0); LYMPH # 1.1 10^3/uL (1.5-5.0); LYMPH % 21.3 % (24.0-44.0); MONO # 0.8 10^3/uL (0.0-0.8); MONO % 14.7 % (2.0-8.0); NEUTROPHILS # 3.3 10^3/uL (1.5-8.5); NEUTROPHILS % 63.0 % (36.0-66.0); PLATELET COUNT, AUTOMATED 223 10^3/uL (150-450)
[2025-04-01 13:06] LABS: INR 1.02
[2025-04-01 13:30] LABS: ALT/SGPT 10.0 U/L (7.0-40); AST/SGOT 16.0 U/L (<34); CALCIUM LEVEL 9.3 MG/DL (8.3-10.6); CARBON DIOXIDE LEVEL 31.0 MMOL/L (20-31); CHLORIDE LEVEL 102.0 MMOL/L (98-107); CREATININE FOR GFR 1.08 MG/DL (0.55-1.30); GLOMERULAR FILTRATION RATE 51.0 (>32); IRON (FE) 49.0 UG/DL (50-170); PERCENT SATURATION 14.2 % (13.2-45.0); POTASSIUM SERUM 3.7 MMOL/L (3.5-5.1); SODIUM LEVEL 143.0 MMOL/L (136-145)
== END ==
LOC: M PLALAB 11:59
PROVIDERS: ATTEND Orthopaedic Surgery
DX: Z01.818 Encounter for other preprocedural examination (principal); M25.551 Pain in right hip; M16.11 Unilateral primary osteoarthritis, right hip; Z96.641 Presence of right artificial hip joint

== ENCOUNTER 2025-04-10 14:02 | Inpatient (IN) | payer MEDICARE, BC ==
[~2025-04-10] VITALS: Ht 149.9 cm; Wt 66.4 kg
[2025-04-10] MEDS: ONDANSETRON 4MG 2ML VIAL IV ONE (15:07)
[2025-04-10] MEDS: NS (Normal Saline) 0.9% 1,000 ML IV ONE (15:07)
[2025-04-10 15:38] LABS: ALT/SGPT 10.0 U/L (7.0-40); AST/SGOT 23.0 U/L (<34)
[2025-04-10] MEDS ORDERED: ISOVUE-370 76% 100 ML VIAL As Ordered ONE (15:42)
[2025-04-10] MEDS: amLODIPine 5 MG TAB PO ONE (15:59)
[2025-04-10] MEDS: ACETAMINOPHEN *IV* 1,000 MG in IV 1 EA IV ONE (15:59)
[2025-04-10 16:04] LABS: BASO # 0.0 10^3/uL (0.0-0.2); BASO % 0.2 % (0.0-1.0); EOS # 0.0 10^3/uL (0.0-0.5); EOS % 0.2 % (0.0-3.0); LYMPH # 1.2 10^3/uL (1.5-5.0); LYMPH % 9.6 % (24.0-44.0); MONO # 1.3 10^3/uL (0.0-0.8); MONO % 10.5 % (2.0-8.0); NEUTROPHILS # 9.4 10^3/uL (1.5-8.5); NEUTROPHILS % 78.0 % (36.0-66.0); PLATELET COUNT, AUTOMATED 254 10^3/uL (150-450)
[2025-04-10] MEDS ORDERED: ISOS1TAB35 PO (16:24)
[2025-04-10] MEDS ORDERED: BUPR5DIS3 TD (16:24)
[2025-04-10] MEDS ORDERED: med rec comment (16:32)
[2025-04-10] MEDS ORDERED: HOME MED LIST COMPLETE! XX SCH (16:35)
[2025-04-10] MEDS: PIPERACILLIN/TAZOBACTAM SOD 3.375 GM in DEXTROSE 5% (D5W) ADV/MINI-BAG 50 ML IV SCH (18:33)
[2025-04-10] MEDS: PANTOPRAZOLE 40MG VIAL IV SCH (18:33)
[2025-04-10 18:47] LABS: CALCIUM LEVEL 8.4 MG/DL (8.3-10.6); CARBON DIOXIDE LEVEL 28.0 MMOL/L (20-31); CHLORIDE LEVEL 100.0 MMOL/L (98-107); CREATININE FOR GFR 0.83 MG/DL (0.55-1.30); GLOMERULAR FILTRATION RATE 69.9 (>32); POTASSIUM SERUM 4.6 MMOL/L (3.5-5.1); SODIUM LEVEL 138.0 MMOL/L (136-145)
[2025-04-10] MEDS: D5W/0.9% SODIUM CHLORIDE 1,000 ML IV SCH (19:00)
[2025-04-10] MEDS: MORPHINE 4 MG/ML 1 ML VIAL IV PRN (19:07)
[2025-04-11] VITALS (11 sets, daily range): BP systolic 110–160; BP diastolic 65–87; TEMP 97.2–98.4; O2SAT 85–96
[2025-04-11] MEDS: MORPHINE 4 MG/ML 1 ML VIAL IV PRN (03:08)
[2025-04-11 06:44] LABS: KETONE, URINE AUTO RFX NEGATIVE (NEGATIVE); LEUKOCYTE ESTERASE UR AUTO RFX NEGATIVE (NEGATIVE); NITRITE, URINE AUTO RFX NEGATIVE (NEGATIVE); RBC, URINE AUTO RFX 7 /HPF (0-3); SQUAM EPITHELIAL CELL UR AURFX 4 /HPF (0-6); WBC, URINE AUTO RFX 3 /HPF (0-3)
[2025-04-11 07:10] LABS: PLATELET COUNT, AUTOMATED 206 10^3/uL (150-450)
[2025-04-11 07:33] LABS: CALCIUM LEVEL 8.4 MG/DL (8.3-10.6); CARBON DIOXIDE LEVEL 28.0 MMOL/L (20-31); CHLORIDE LEVEL 102.0 MMOL/L (98-107); CREATININE FOR GFR 1.04 MG/DL (0.55-1.30); GLOMERULAR FILTRATION RATE 53.3 (>32); POTASSIUM SERUM 4.2 MMOL/L (3.5-5.1); SODIUM LEVEL 141.0 MMOL/L (136-145)
[2025-04-11] MEDS ORDERED: ONDANSETRON 4MG 2ML VIAL IV SCH (08:00)
[2025-04-11] MEDS: ONDANSETRON 4MG 2ML VIAL IV PRN (08:36)
[2025-04-11] MEDS: HYDROMORPHONE HCL 0.5 MG/0.5 ML SYRINGE IV PRN ×2 (09:27→13:57)
[2025-04-11] MEDS: GLUCAGON INJ 1 MG VIAL As Ordered ONE (11:36)
[2025-04-11] MEDS ORDERED: ROPIvacaine 0.5% 30ML VIAL PN ONE (12:00)
[2025-04-11] MEDS ORDERED: MIDAZOLAM INJ 2 MG/2 ML VIAL IV PRN (12:00)
[2025-04-11] MEDS ORDERED: LIDOCAINE 1% SDV 5 ML VIAL PN ONE (12:00)
[2025-04-11] MEDS: MIDAZOLAM INJ 2 MG/2 ML VIAL IV PRN (12:06)
[2025-04-11] MEDS: EPINEPHrine INJ 1 MG/ML 1ML AMP PN ONE (12:07)
[2025-04-11] MEDS: LIDOCAINE 1% SDV 5 ML VIAL PN ONE (12:07)
[2025-04-11] MEDS: ROPIvacaine 0.5% 30ML VIAL PN ONE (12:07)
[2025-04-11] MEDS ORDERED: LIDOCAINE 2% 100 MG/5 ML SDV (FOR ANES.) As Ordered ONE (12:15)
[2025-04-11] MEDS ORDERED: VASOPRESSIN INJ 20UNITS/ML 1ML VIAL As Ordered ONE (12:15)
[2025-04-11] MEDS ORDERED: ROCURONIUM BROMIDE 50MG/5ML VIAL As Ordered ONE (12:17)
[2025-04-11] MEDS ORDERED: SUGAMMADEX SODIUM 200 MG/2 ML VIAL As Ordered ONE (13:35)
[2025-04-11] MEDS ORDERED: MORPHINE 4 MG/ML 1 ML VIAL IV PRN (13:40)
[2025-04-11] MEDS ORDERED: SUCCINYLCHOLINE 100MG/5ML SYRINGE As Ordered ONE (13:50)
[2025-04-12] MEDS: HYDROMORPHONE HCL 0.5 MG/0.5 ML SYRINGE IV PRN (01:58)
[2025-04-12 04:48] VITALS: BP 112/66; TEMP 97.9; O2SAT 96
[2025-04-12 07:25] LABS: PLATELET COUNT, AUTOMATED 207 10^3/uL (150-450)
[2025-04-12 07:56] LABS: CALCIUM LEVEL 8.1 MG/DL (8.3-10.6); CARBON DIOXIDE LEVEL 28.0 MMOL/L (20-31); CHLORIDE LEVEL 104.0 MMOL/L (98-107); CREATININE FOR GFR 1.36 MG/DL (0.55-1.30); GLOMERULAR FILTRATION RATE 38.7 (>32); POTASSIUM SERUM 4.0 MMOL/L (3.5-5.1); SODIUM LEVEL 141.0 MMOL/L (136-145)
[2025-04-12 08:00] VITALS: BP 141/86; TEMP 97.7; O2SAT 95
[2025-04-12] MEDS: D5W/LR 1,000 ML IV SCH (11:28)
[2025-04-12] MEDS: BISACODYL 10 MG SUPP PR ONE (11:29)
[2025-04-12 12:00] VITALS: BP 142/76; TEMP 97.5; O2SAT 93
[2025-04-12 16:00] VITALS: BP 156/91; TEMP 97.9; O2SAT 92
[2025-04-12 20:00] VITALS: BP 154/114; TEMP 98.1; O2SAT 91
[2025-04-12] MEDS: PIPERACILLIN/TAZOBACTAM SOD 4.5 GM in DEXTROSE 5% (D5W) ADV/MINI-BAG 50 ML IV SCH (20:43)
[2025-04-13] VITALS (7 sets, daily range): BP systolic 99–184; BP diastolic 59–89; TEMP 96.8–97.7; O2SAT 92–95
[2025-04-13 04:59] LABS: PLATELET COUNT, AUTOMATED 170 10^3/uL (150-450)
[2025-04-13 05:36] LABS: CALCIUM LEVEL 7.9 MG/DL (8.3-10.6); CARBON DIOXIDE LEVEL 29.0 MMOL/L (20-31); CHLORIDE LEVEL 106.0 MMOL/L (98-107); CREATININE FOR GFR 1.11 MG/DL (0.55-1.30); GLOMERULAR FILTRATION RATE 49.3 (>32); POTASSIUM SERUM 3.8 MMOL/L (3.5-5.1); SODIUM LEVEL 142.0 MMOL/L (136-145)
[2025-04-13] MEDS: PIPERACILLIN/TAZOBACTAM SOD 4.5 GM in DEXTROSE 5% (D5W) ADV/MINI-BAG 50 ML IV SCH (09:53)
[2025-04-13] MEDS: BISACODYL 10 MG SUPP PR SCH (09:55)
[2025-04-13] MEDS: ONDANSETRON 4MG 2ML VIAL IV PRN (22:45)
[2025-04-14] VITALS: BP 164/86; TEMP 97.7; O2SAT 96
[2025-04-14] MEDS: MAALOX 30 ML SUSP *UDC PO ONE (01:45)
[2025-04-14 04:00] VITALS: BP 166/86; TEMP 97.5; O2SAT 95
[2025-04-14 07:08] LABS: PLATELET COUNT, AUTOMATED 177 10^3/uL (150-450)
[2025-04-14 07:33] LABS: CALCIUM LEVEL 8.0 MG/DL (8.3-10.6); CARBON DIOXIDE LEVEL 32.0 MMOL/L (20-31); CHLORIDE LEVEL 104.0 MMOL/L (98-107); CREATININE FOR GFR 0.91 MG/DL (0.55-1.30); GLOMERULAR FILTRATION RATE 62.6 (>32); POTASSIUM SERUM 3.3 MMOL/L (3.5-5.1); SODIUM LEVEL 144.0 MMOL/L (136-145)
[2025-04-14 08:00] VITALS: BP 172/85; TEMP 97.5; O2SAT 95
[2025-04-14] MEDS: BUPRENORPHINE 5 MCG/HR TD SCH (09:00)
[2025-04-14] MEDS: KCL 10MEQ/100ML SWI (KRUN) 10 MEQ in IV 1 EA IV ONE (10:10)
[2025-04-14 12:00] VITALS: BP 172/85; TEMP 97.3; O2SAT 96
[2025-04-14 16:00] VITALS: BP 169/80; TEMP 97.7; O2SAT 95
[2025-04-14] MEDS ORDERED: diphenhydrAMINE 50 MG/ML VIAL IV PRN (18:15)
[2025-04-14] MEDS: BISACODYL 10 MG SUPP PR SCH (20:40)
[2025-04-14 20:42] VITALS: BP 160/77; TEMP 97.3; O2SAT 94
[2025-04-14] MEDS: RAMELTEON 8 MG TAB NG SCH (21:24)
[2025-04-14] MEDS: TELMISARTAN 20 MG TAB NG SCH (21:25)
[2025-04-15] VITALS (9 sets, daily range): BP systolic 113–156; BP diastolic 63–80; TEMP 97.2–97.9; O2SAT 86–100
[2025-04-15] MEDS: amLODIPine 5 MG TAB NG SCH (08:14)
[2025-04-15 08:44] LABS: CALCIUM LEVEL 8.0 MG/DL (8.3-10.6); CARBON DIOXIDE LEVEL 31.0 MMOL/L (20-31); CHLORIDE LEVEL 103.0 MMOL/L (98-107); CREATININE FOR GFR 0.79 MG/DL (0.55-1.30); GLOMERULAR FILTRATION RATE 74.2 (>32); POTASSIUM SERUM 3.0 MMOL/L (3.5-5.1); SODIUM LEVEL 143.0 MMOL/L (136-145)
[2025-04-15 09:05] LABS: PLATELET COUNT, AUTOMATED 197 10^3/uL (150-450)
[2025-04-15] MEDS: HYDROMORPHONE HCL 0.5 MG/0.5 ML SYRINGE IV PRN (13:42)
[2025-04-15] MEDS: ACETAMINOPHEN *IV* 1,000 MG in IV 1 EA IV PRN (14:54)
[2025-04-15] MEDS: LORazepam 0.5 MG TAB SL PRN (15:31)
[2025-04-16] VITALS (8 sets, daily range): BP systolic 132–172; BP diastolic 67–79; TEMP 97–98.9; O2SAT 94–97
[2025-04-16] MEDS: HEPARIN SOD 5000 UNITS/ML 1 ML VIAL/SYRINGE SQ SCH (05:48)
[2025-04-16 06:41] LABS: PLATELET COUNT, AUTOMATED 202 10^3/uL (150-450)
[2025-04-16 07:33] LABS: CALCIUM LEVEL 7.9 MG/DL (8.3-10.6); CARBON DIOXIDE LEVEL 33.0 MMOL/L (20-31); CHLORIDE LEVEL 101.0 MMOL/L (98-107); CREATININE FOR GFR 0.82 MG/DL (0.55-1.30); GLOMERULAR FILTRATION RATE 70.9 (>32); POTASSIUM SERUM 2.6 MMOL/L (3.5-5.1); SODIUM LEVEL 144.0 MMOL/L (136-145)
[2025-04-16] MEDS ORDERED: KCL 20MEQ IN 100ML SWI (KRUN) 20 MEQ in IV 1 EA IV ONE ×4 (08:05)
[2025-04-16] MEDS: KCL 10MEQ/100ML SWI (KRUN) IV SCH (08:49)
[2025-04-16] MEDS: HYDROMORPHONE HCL 0.5 MG/0.5 ML SYRINGE IV PRN (08:50)
[2025-04-16 12:35] LABS: CALCIUM LEVEL 7.9 MG/DL (8.3-10.6); CARBON DIOXIDE LEVEL 33.0 MMOL/L (20-31); CHLORIDE LEVEL 102.0 MMOL/L (98-107); CREATININE FOR GFR 0.76 MG/DL (0.55-1.30); GLOMERULAR FILTRATION RATE 77.7 (>32); POTASSIUM SERUM 2.9 MMOL/L (3.5-5.1); SODIUM LEVEL 144.0 MMOL/L (136-145)
[2025-04-16] MEDS: KCL 20MEQ IN 100ML SWI (KRUN) 20 MEQ in IV 1 EA IV SCH (18:20)
[2025-04-16 20:45] LABS: CALCIUM LEVEL 7.9 MG/DL (8.3-10.6); CARBON DIOXIDE LEVEL 31 MMOL/L (20-31); CHLORIDE LEVEL 103 MMOL/L (98-107); CREATININE FOR GFR 0.75 MG/DL (0.55-1.30); GLOMERULAR FILTRATION RATE 79.0 (>32); POTASSIUM SERUM 3.3 MMOL/L (3.5-5.1); SODIUM LEVEL 144 MMOL/L (136-145)
[2025-04-16] MEDS: MORPHINE 4 MG/ML 1 ML VIAL IV ONE ×2 (20:50→21:54)
[2025-04-17] VITALS (7 sets, daily range): BP systolic 137–176; BP diastolic 64–83; TEMP 97–97.8; O2SAT 92–96
[2025-04-17 05:51] LABS: PLATELET COUNT, AUTOMATED 191 10^3/uL (150-450)
[2025-04-17 06:22] LABS: CALCIUM LEVEL 7.7 MG/DL (8.3-10.6); CARBON DIOXIDE LEVEL 30 MMOL/L (20-31); CHLORIDE LEVEL 105 MMOL/L (98-107); CREATININE FOR GFR 0.74 MG/DL (0.55-1.30); GLOMERULAR FILTRATION RATE 80.2 (>32); POTASSIUM SERUM 3.1 MMOL/L (3.5-5.1); SODIUM LEVEL 145 MMOL/L (136-145)
[2025-04-17] MEDS: KCL 20MEQ IN 100ML SWI (KRUN) 20 MEQ in IV 1 EA IV SCH (08:42)
[2025-04-17 15:52] LABS: CALCIUM LEVEL 7.7 MG/DL (8.3-10.6); CARBON DIOXIDE LEVEL 32 MMOL/L (20-31); CHLORIDE LEVEL 104 MMOL/L (98-107); CREATININE FOR GFR 0.77 MG/DL (0.55-1.30); GLOMERULAR FILTRATION RATE 76.5 (>32); POTASSIUM SERUM 3.3 MMOL/L (3.5-5.1); SODIUM LEVEL 144 MMOL/L (136-145)
[2025-04-17] MEDS: KCL 20MEQ IN 100ML SWI (KRUN) 20 MEQ in IV 1 EA IV ONE ×2 (17:31→19:58)
[2025-04-17] MEDS ORDERED: KCL 20MEQ IN 100ML SWI (KRUN) 20 MEQ in IV 1 EA IV ONE (18:00)
[2025-04-17 22:50] LABS: CALCIUM LEVEL 7.7 MG/DL (8.3-10.6); CARBON DIOXIDE LEVEL 31 MMOL/L (20-31); CHLORIDE LEVEL 105 MMOL/L (98-107); CREATININE FOR GFR 0.69 MG/DL (0.55-1.30); GLOMERULAR FILTRATION RATE 86.1 (>32); POTASSIUM SERUM 3.9 MMOL/L (3.5-5.1); SODIUM LEVEL 144 MMOL/L (136-145)
[2025-04-18 04:01] VITALS: BP 158/74; TEMP 96.8; O2SAT 93
[2025-04-18 07:18] VITALS: BP 166/79; TEMP 97.2; O2SAT 96
[2025-04-18 08:36] LABS: CALCIUM LEVEL 8.1 MG/DL (8.3-10.6); CARBON DIOXIDE LEVEL 27 MMOL/L (20-31); CHLORIDE LEVEL 105 MMOL/L (98-107); CREATININE FOR GFR 0.75 MG/DL (0.55-1.30); GLOMERULAR FILTRATION RATE 79.0 (>32); POTASSIUM SERUM 3.8 MMOL/L (3.5-5.1); SODIUM LEVEL 143 MMOL/L (136-145)
[2025-04-18] MEDS ORDERED: MORPHINE 4 MG/ML 1 ML VIAL IV PRN (11:00)
[2025-04-18] MEDS: MAGNESIUM CITRATE 300 ML BTL PO ONE (11:02)
[2025-04-18 11:59] VITALS: BP 166/79; TEMP 97; O2SAT 98
[2025-04-18 16:57] VITALS: BP 145/70; TEMP 97.1; O2SAT 98
[2025-04-18] MEDS: MORPHINE 4 MG/ML 1 ML VIAL IV PRN (20:03)
[2025-04-18 20:04] VITALS: BP 132/84; TEMP 97.9; O2SAT 97
[2025-04-18 23:26] VITALS: BP 138/78; TEMP 97.8; O2SAT 96
[2025-04-19 03:24] VITALS: BP 160/72; TEMP 98.1; O2SAT 93
[2025-04-19 05:29] LABS: PLATELET COUNT, AUTOMATED 193 10^3/uL (150-450)
[2025-04-19 06:03] LABS: CALCIUM LEVEL 7.7 MG/DL (8.3-10.6); CARBON DIOXIDE LEVEL 32 MMOL/L (20-31); CHLORIDE LEVEL 104 MMOL/L (98-107); CREATININE FOR GFR 0.79 MG/DL (0.55-1.30); GLOMERULAR FILTRATION RATE 74.2 (>32); POTASSIUM SERUM 3.1 MMOL/L (3.5-5.1); SODIUM LEVEL 144 MMOL/L (136-145)
[2025-04-19 07:49] VITALS: BP 160/74; TEMP 98; O2SAT 96
[2025-04-19 09:46] VITALS: BP 160/80
[2025-04-19] MEDS: KCL 20MEQ IN 100ML SWI (KRUN) 20 MEQ in IV 1 EA IV ONE (12:32)
[2025-04-19 16:56] VITALS: BP 162/80; TEMP 98.1; O2SAT 96
[2025-04-19] MEDS: POTASSIUM CHLORIDE 10% LIQ 20MEQ/15ML UDC PO ONE (17:44)
[2025-04-19 19:40] VITALS: BP 144/69; TEMP 97.3; O2SAT 92
[2025-04-20] VITALS (8 sets, daily range): BP systolic 130–153; BP diastolic 64–78; TEMP 97.2–98; O2SAT 91–98
[2025-04-20 07:50] LABS: PLATELET COUNT, AUTOMATED 180 10^3/uL (150-450)
[2025-04-20 08:23] LABS: CALCIUM LEVEL 7.7 MG/DL (8.3-10.6); CARBON DIOXIDE LEVEL 30 MMOL/L (20-31); CHLORIDE LEVEL 107 MMOL/L (98-107); CREATININE FOR GFR 0.73 MG/DL (0.55-1.30); GLOMERULAR FILTRATION RATE 81.6 (>32); POTASSIUM SERUM 3.1 MMOL/L (3.5-5.1); SODIUM LEVEL 146 MMOL/L (136-145)
[2025-04-20] MEDS: POTASSIUM CHLORIDE 10% LIQ 20MEQ/15ML UDC PO ONE (12:14)
[2025-04-20] MEDS: KCL 20MEQ IN 100ML SWI (KRUN) 20 MEQ in IV 1 EA IV ONE (12:15)
[2025-04-21] VITALS: BP 139/67; TEMP 98.2; O2SAT 94
[2025-04-21 03:52] VITALS: BP 157/69; TEMP 97.2; O2SAT 91
[2025-04-21 08:23] VITALS: BP 148/92; TEMP 97.3; O2SAT 93
[2025-04-21 09:10] LABS: PLATELET COUNT, AUTOMATED 195 10^3/uL (150-450)
[2025-04-21 09:47] LABS: CALCIUM LEVEL 8.3 MG/DL (8.3-10.6); CARBON DIOXIDE LEVEL 30 MMOL/L (20-31); CHLORIDE LEVEL 105 MMOL/L (98-107); CREATININE FOR GFR 0.74 MG/DL (0.55-1.30); GLOMERULAR FILTRATION RATE 80.2 (>32); POTASSIUM SERUM 3.6 MMOL/L (3.5-5.1); SODIUM LEVEL 144 MMOL/L (136-145)
[2025-04-21 10:50] VITALS: BP 170/78
[2025-04-21] MEDS: PERCOCET 5MG/325MG TAB PO ONE (10:51)
[2025-04-21] MEDS: DICYCLOMINE 10 MG CAP PO ONE (10:52)
[2025-04-21 12:03] VITALS: BP 155/71; TEMP 97.2; O2SAT 94
[2025-04-21] MEDS: NEOSPORIN OINT 0.9 GM PKT TOP STA (15:50)
== END 2025-04-21 17:08 | disposition home health service (06) | DRG 335 ==
LOC: M ED 14:02 → M ED INP 18:43 → M MSPAV 22:38 → M PCU 04-16 17:59
PROVIDERS: ADMIT Student in an Organized Health Care Education/Training Program; ATTEND Internal Medicine
PROC: 0DN80ZZ Release Small Intestine, Open Approach (ICD-10-PCS; 2025-04-11)
PROC: 0DNU0ZZ Release Omentum, Open Approach (ICD-10-PCS; principal; 2025-04-11 10:57)
DX: K56.51 Intestinal adhesions [bands], with partial obstruction (principal); G93.41 Metabolic encephalopathy; I50.42 Chronic combined systolic (congestive) and diastolic (congestive) heart failure; K57.32 Diverticulitis of large intestine without perforation or abscess without bleeding; N17.9 Acute kidney failure, unspecified; G47.33 Obstructive sleep apnea (adult) (pediatric); I11.0 Hypertensive heart disease with heart failure; K44.9 Diaphragmatic hernia without obstruction or gangrene; K21.9 Gastro-esophageal reflux disease without esophagitis; E78.5 Hyperlipidemia, unspecified; I25.10 Atherosclerotic heart disease of native coronary artery without angina pectoris; E03.9 Hypothyroidism, unspecified; E78.2 Mixed hyperlipidemia; G40.909 Epilepsy, unspecified, not intractable, without status epilepticus; G89.29 Other chronic pain; G62.9 Polyneuropathy, unspecified; E87.5 Hyperkalemia; R32 Unspecified urinary incontinence; M81.0 Age-related osteoporosis without current pathological fracture; E55.9 Vitamin D deficiency, unspecified; K56.7 Ileus, unspecified; Z66 Do not resuscitate; Z86.718 Personal history of other venous thrombosis and embolism; Z90.49 Acquired absence of other specified parts of digestive tract; Z85.828 Personal history of other malignant neoplasm of skin; Z98.41 Cataract extraction status, right eye; Z98.42 Cataract extraction status, left eye; Z96.1 Presence of intraocular lens; Z95.828 Presence of other vascular implants and grafts; Z87.891 Personal history of nicotine dependence; Z79.82 Long term (current) use of aspirin; Z79.899 Other long term (current) drug therapy; Z88.2 Allergy status to sulfonamides; Z88.8 Allergy status to other drugs, medicaments and biological substances; Z88.6 Allergy status to analgesic agent

== ENCOUNTER 2025-04-28 13:56 | Emergency (ER) | payer MEDICARE, BC ==
[~2025-04-28] VITALS: Ht 149.9 cm; Wt 60.6 kg
[~2025-04-28 13:56] MED LIST changes: +BUPR5DIS3 TD; +ISOS1TAB35 PO; +med rec comment
[2025-04-28 15:27] LABS: BASO # 0.0 10^3/uL (0.0-0.2); BASO % 0.4 % (0.0-1.0); EOS # 0.1 10^3/uL (0.0-0.5); EOS % 1.0 % (0.0-3.0); LYMPH # 1.4 10^3/uL (1.5-5.0); LYMPH % 20.2 % (24.0-44.0); MONO # 1.2 10^3/uL (0.0-0.8); MONO % 18.0 % (2.0-8.0); NEUTROPHILS # 4.0 10^3/uL (1.5-8.5); NEUTROPHILS % 59.4 % (36.0-66.0); PLATELET COUNT, AUTOMATED 271 10^3/uL (150-450)
[2025-04-28 16:00] LABS: ALT/SGPT 12.0 U/L (7.0-40); AST/SGOT 27.0 U/L (<34); CALCIUM LEVEL 8.9 MG/DL (8.3-10.6); CARBON DIOXIDE LEVEL 31.0 MMOL/L (20-31); CHLORIDE LEVEL 101.0 MMOL/L (98-107); CREATININE FOR GFR 0.84 MG/DL (0.55-1.30); GLOMERULAR FILTRATION RATE 68.9 (>32); POTASSIUM SERUM 4.5 MMOL/L (3.5-5.1); SODIUM LEVEL 140.0 MMOL/L (136-145)
[2025-04-28 16:02] LABS: FREE T4 1.39 NG/DL (0.89-1.76)
[2025-04-28 19:35] VITALS: BP 173/81; TEMP 97.7; O2SAT 98
== END 2025-04-28 19:42 | disposition home or self-care (01) ==
LOC: M ED 13:56
DX: I95.9 Hypotension, unspecified (principal); I10 Essential (primary) hypertension; Z88.2 Allergy status to sulfonamides; Z88.6 Allergy status to analgesic agent; Z88.8 Allergy status to other drugs, medicaments and biological substances; Z91.09 Other allergy status, other than to drugs and biological substances; Z79.1 Long term (current) use of non-steroidal anti-inflammatories (NSAID); Z79.899 Other long term (current) drug therapy

== ENCOUNTER → 2025-05-11 | Outpatient (REF) | payer MEDICARE, BC ==
[2025-05-11 14:06] LABS: PLATELET COUNT, AUTOMATED 272 10^3/uL (150-450)
[2025-05-11 14:32] LABS: ALT/SGPT 36.0 U/L (7.0-40); AST/SGOT 47.0 U/L (<34); CALCIUM LEVEL 9.2 MG/DL (8.3-10.6); CARBON DIOXIDE LEVEL 31.0 MMOL/L (20-31); CHLORIDE LEVEL 101.0 MMOL/L (98-107); CREATININE FOR GFR 0.95 MG/DL (0.55-1.30); FREE T4 1.1 NG/DL (0.89-1.76); GLOMERULAR FILTRATION RATE 59.5 (>32); MAGNESIUM LEVEL 2.0 MG/DL (1.8-2.4); POTASSIUM SERUM 4.5 MMOL/L (3.5-5.1); SODIUM LEVEL 139.0 MMOL/L (136-145)
== END ==
LOC: M SFHCADAM 10:32
DX: I10 Essential (primary) hypertension (principal); N17.9 Acute kidney failure, unspecified